=== PATIENT | male | born 1960 | race Caucasian/White ===

== ENCOUNTER 2016-09-26 10:30 | Inpatient (IN) | payer OTHER ==
[~2016-09-26 10:30] MED LIST: ALPR0.25 PO; COMMODE PAIL WI1 MIS; DIPH25CA PO; FURO40TA PO; HOSP BED1; HUMALOG SQ; IPRASOL INH; LACT10SO PO; LIFT HOYER; METO10TA PO; NEPHRO PO; NEXI20CA PO; NICO14DI T-DERMAL; NORV2.5T PO; NOVONP2; ONDA4TAB7 SL; PANC4200 PO; QUIN5TAB6 PO; SENN1TAB17 PO; SUCR1TAB PO; TOPR25TA PO; VANC250C2 PO
[2016-09-26] MEDS ORDERED: PANT20 PO (11:08)
[2016-09-26] MEDS ORDERED: EPOG1000 IV (11:08)
[2016-09-26] MEDS ORDERED: HEPAR10KP IVF (11:08)
[2016-09-26] MEDS ORDERED: DIFL100T PO ×2 (11:08)
[2016-09-26] MEDS ORDERED: HEPAR10KP (11:08)
[2016-09-26] MEDS ORDERED: ESCI10TA PO (11:08)
[2016-09-26] MEDS ORDERED: ALBU12.5P IV (11:08)
[2016-09-26] MEDS ORDERED: BACI500O2 TOP (11:08)
[2016-09-26] MEDS ORDERED: CREON6 PO (11:08)
[2016-09-26] MEDS ORDERED: NEPHRO PO (11:08)
[2016-09-26] MEDS ORDERED: NICO7DIS2 TD (11:08)
[2016-09-26] MEDS ORDERED: GELFOAM TOP (11:08)
[2016-09-26] MEDS ORDERED: METO10TA PO (11:08)
[2016-09-26] MEDS ORDERED: LACT PO (11:08)
[2016-09-26] MEDS ORDERED: DESI40OI2 TOPICAL (11:08)
[2016-09-26] MEDS ORDERED: ONDA4TAB7 SL (11:08)
[2016-09-26] MEDS ORDERED: MIDO5TAB PO (11:08)
[2016-09-26] MEDS ORDERED: GENT20P IV (11:08)
[2016-09-26 13:00] VITALS: BP 137/76; PULSE 69; RESP 18; TEMP 95.5; O2SAT 96
[2016-09-26] MEDS ORDERED: ONDANSETRON ODT 4 MG TAB SL PRN (13:15)
[2016-09-26] MEDS ORDERED: ZINC OXIDE 40% OINT 60 GM TUBE TOPICAL PRN (13:15)
[2016-09-26] MEDS ORDERED: RESP: ALBUTEROL 2.5 MG/IPRATROPIUM 0.5 MG NEB (PRN) NEB (13:15)
[2016-09-26] MEDS ORDERED: ALPRAZolam 0.25 MG TAB PO PRN (13:15)
--- NOTE | 2016-09-26 13:23 | HHI.HP ---
HPI Service [facility] Primary Care Physician Unknown Admission Diagnosis Diagnoses: Chief Complaint: Pneumothorax Travel History International Travel<30 Days: No Contact w/Intl Traveler <30 Da: No Traveled to Known Affected Are: No History of Present Illness Mr. Emanuel Alvarado is a 56-year-old male, with past medical history of diabetes mellitus, tobacco and alcohol abuse. He had an episode of syncope in late November 2015 evaluated at [facility] and found to have necrotizing pancreatitis with liver failure that was secondary to alcohol- induced cirrhosis. That hospitalization was complicated by acute tubular necrosis and patient has been on hemodialysis since then. He also had metabolic encephalopathy, acute respiratory failure for which required tracheostomy and ventilator support with decannulation prior to return to [facility]. He was evaluated for possible liver transplant in [place] but was found to be a poor candidate and was return to [facility] on 06/27/2016. Mr. Alvarado has had ongoing liver failure with ascites, metabolic encephalopathy and multiple procedures including multiple paracentesis for ascites, thoracentesis, IVC filter placement for DVT/PE and recent placement of an AV fistula of right arm for ESRD and ongoing hemodialysis. He was then admitted to [facility] for comprehensive therapy. While at [place], he continued to develop pleural effusion, patient went for thoracenteses 09/23/16. 4 L of fluid was removed, it was transudative. He then subsequently had a pneumothorax after the procedure. Respiratory status has been stable, patient has not been complaining of any shortness of breath however chest x-ray is being done every day with worsening pneumothorax hence patient was transferred to the hospital. Today, patient still denies any shortness of breath but he has also denied shortness of breath despite massive pleural effusion. He also denies any pleuritic chest pain. No fever or chills. Patient has been sleepy and not the best historian. Review of Systems ROS Limitations: Poor Historian Past Family Social History Past Medical History Alcohol Induced liver cirrhosis End-stage renal disease on hemodialysis Monday C. difficile Diabetes Pulmonary embolism DVT Past Surgical History Tracheostomy PEG tube AV fistula graft Multiple paracentesis Thoracentesis Lung resection Reported Medications Desitin (Zinc Oxide (Topical)) 40 % Pst 1 Applic TOPICAL UNSCH PRN Nicotine Patch (Nicotine) 7 Mg/24 Hr Patch 1 Patch TD DAILY Midodrine 5 Mg Tab 10 Mg PO WITH DIALYSIS Heparin Inj (Heparin Sodium (Porcine)) 10,000 Units/10 Ml Inj 0 Units .XX UNSCH PRN Heparin Inj (Heparin Sodium (Porcine)) 10,000 Units/10 Ml Inj 8,000 Units IVF UNSCH PRN Gentamicin Inj (Gentamicin Sulfate) 10 Mg/Ml Inj 20 Mg IV UNSCH PRN Gelfoam Sponge (Gelatin) 12-7 Mm Pad 1 Foam TOP UNSCH PRN Diflucan (Fluconazole) 100 Mg Tab 50 Mg PO SUMOWEFR Diflucan (Fluconazole) 100 Mg Tab 100 Mg PO TUTHSA Flexbumin Inj (Albumin Human) 0.25 Gm/Ml Soln 25 Gm IV UNSCH PRN Bacitracin Topical 500 Unit/Gm Oint 1 Applic TOP Q12HR Epogen Inj (Epoetin Maldonado) 10,000 Unit/Ml Inj 10,000 Units IV UNSCH PRN Escitalopram (Escitalopram Oxalate) 10 Mg Tab 10 Mg PO DAILY Acidophilus/l-Sporogenes (Lactobacillus Acidophilus) 1 Tab Tab 1 Tab PO TID Metoclopramide (Metoclopramide HCl) 10 Mg Tab 5 Mg PO TIDAC Nephro-Bull Rx (Vitamin B Cmplx/Vit C/Folic AC) 1 Tab 1 Cap PO DAILY Protonix (Pantoprazole Sodium) 20 Mg Tab 20 Mg PO DAILY Creon (Amylase/Lipase/Protease) 6,000-19,000-30,000 Units Cap 2 Cap PO TID Ondansetron Odt 4 Mg Tab 4 Mg SL Q6HR PRN Lift - Evelia Device 1 Ea .ROUTE DIRECTED Hospital Bed - Electric 1 Ea Ea 1 Ea .ROUTE DIRECTED Commode With Arms (Device) 1 Mis Mis 1 Ea .ROUTE DIRECTED Reported Duoneb (Ipratropium-Albuterol Neb) 0.5-2.5 Mg/3 Ml Neb 1 Nebule INH QID PRN Diphenhydramine (Diphenhydramine HCl) 25 Mg Cap 25 Mg PO HS PRN Alprazolam 0.25 Mg Tab 0.25 Mg PO TID PRN Vancomycin (Vancomycin HCl) 250 Mg Cap 250 Mg PO QID Sucralfate 1 Gm Tab 1 Gm PO TID on empty stomach Senokot S (Sennosides-Docusate Sodium) 8.6-50 Mg Tab 2 Tab PO HS Pancreaze (Pancrelipase) 4,200-10,000-17,500 Units Cap 2 Cap PO TIDAC Nicotine Patch (Nicotine) 14 Mg/24 Hr Patch 14 Mg T-DERMAL DAILY Lactulose Liq (Lactulose) 10 Gm/15 Ml Soln 30 Ml PO BIDAC Furosemide 40 Mg Tab 40 Mg PO BID Humalog Inj (Insulin Human Lispro) 1,000 Unit/10 Ml Vial 1-9 Units SQ ACHS Max dose at bedtime:( )units; sugars< 70,(0)units; sugars 150-199,(1)unit; sugars 200-249,(3)units; sugars 250-299,(5)units; sugars 300-349,(7)units; sugars more than 349,(9)units. Novolin N Inj (Insulin Human NPH) 100 Unit/Ml Inj Norvasc (Amlodipine Besylate) 2.5 Mg Tab 2.5 Mg PO DAILY Toprol XL (Metoprolol Succinate) 25 Mg Tab 25 Mg PO DAILY Quinapril (Quinapril HCl) 5 Mg Tab 5 Mg PO BID Allergies: Coded Allergies: No Known Allergies (Verified , 08/31/16) Family History Father's medical history unknown. Mother history of dementia, old age at 82. Siblings are healthy. No children Social History Lives with his . Former smoker, quit November 2015, 35 years 1 pack per day Alcohol use daily 2-3 beers and vodka 10 years Denies illicit drug use Physical Exam Physical Exam GENERAL: This is a 56 year old chronically ill appearing male patient, in no apparent distress. Sleeping, calm. SKIN: Sacral pressure wound, erythema consistent with pressure areas bilateral foot. HEAD: Normocephalic, no scalp tenderness. EYES: Extraocular motions intact. scleral icterus noted. No injection or drainage. ENT: Nose without bleeding. Airway patent. Previous tracheostomy site, stoma partially open, no drainage. No jaundice, pale conjunctiva. NECK: Trachea midline. No JVD or lymphadenopathy. CARDIOVASCULAR: Regular rate and rhythm without murmurs, gallops, or rubs. Left subclavian Vas-Cath. RESPIRATORY: Decreased breath sounds bilaterally, worse on the left, no wheezing or crackles. GASTROINTESTINAL: Good bowel sounds, non-tender, distended firm, rounded. MUSCULOSKELETAL: Extremities without clubbing, cyanosis, +1 BLE edema. Right upper arm AV fistula positive thrill and bruit NEUROLOGICAL: Sleepy, easily arousable. No focal neuro deficit. Moves all extremities weakly, BLE weaker. Normal speech Assessment and Plan Problem List: (1) UTI (urinary tract infection) ICD Code: N39.0 Status: Acute (2) ESRD (end stage renal disease) on dialysis ICD Code: N18.6 Status: Chronic (3) Hx of acute pancreatitis ICD Code: Z87.19 Status: Acute (4) Ascites due to alcoholic cirrhosis ICD Code: K70.31 Status: Acute (5) Pneumothorax ICD Code: J93.9 Status: Acute Assessment and Plan Mr. Emanuel Alvarado is a 56-year-old male, with past medical history of diabetes mellitus, tobacco and alcohol abuse. He had an episode of syncope in late November 2015 evaluated at [facility] and found to have necrotizing pancreatitis with liver failure that was secondary to alcohol- induced cirrhosis. Subsequent hospital course included acute tubular necrosis patient is now hemodialysis dependent. He also had tracheostomy placed after a long ventilator support requirement. He has ongoing liver failure with ascites , metabolic encephalopathy and multiple procedures including multiple paracentesis for ascites, thoracentesis, IVC filter placement for DVT/PE and recent placement of an AV fistula of right arm for ESRD and ongoing hemodialysis. He was transferred from [facility] to the hospital for pneumothorax after thoracentesis for pleural effusion. Bilateral pleural effusions, left pneumothorax - status post 2.4 L of thoracenteses 09/23/16, chest x-ray today personally reviewed, shows patchy bilateral consolidation and a large pneumothorax on the left, worse than yesterday. No leukocytosis, previous fluid analysis was transudative. No antibiotics. Will send for CT-guided chest tube insertion, consult pulmonary for chest tube management. UTI- UA reviewed positive leukocyte esterase, urine culture grew albicans, continue Diflucan renally dosed until 10/08/16. IDDM - previously managed at home with Lantus insulin and prandial insulin SS. Sliding scale insulin for now. No long-acting insulin. ESRD - on hemodialysis T--S, consult nephrology. C Diff - positive test from [facility] 08/21/16 and was started on Vancomycin PO QID and completed 09/03/16. Continue Lactinex. History of PE/DVT - IVC filter in place. Unable to anticoagulate due to liver cirrhosis. Orthostatic hypotension- TEDs. Patient previously on Norvasc, metoprolol and lisinopril/quinapril but were stopped. Sacral wound-continue wound care. Chronic Pancreatitis - on Creon HTN -patient actually quite hypotensive, all antihypertensives were previously stopped. Liver cirrhosis, ascites, history of hepatic encephalopathy - continue with dialysis, recheck ammonia. US 09/13/2016 showed loculated fluid collections unable to perform paracentesis. Restart lactulose. History of respiratory failure, tracheostomy - monitor respiratory status, Neb treatments when necessary DVT prop - IVC filter Full code Physician Certification 2 Midnight Certification Type: Admission for Inpatient Services Order for Inpatient Services The services are ordered in accordance with Medicare regulations or non- Medicare payer requirements, as applicable. In the case of services not specified as inpatient-only, they are appropriately provided as inpatient services in accordance with the 2-midnight benchmark. Estimated LOS (days): 4 days is the estimated time the patient will need to remain in the hospital, assuming treatment plan goals are met and no additional complications. Post-Hospital Plan: [facility] Stevenson Robles MD Sep 26, 2016 13:23
[2016-09-26] MEDS ORDERED: GLUCAGON 1 MG/ML VIAL OTHER PRN (13:45)
[2016-09-26] MEDS ORDERED: DEXTROSE 50% IN WATER 50 ML VIAL(D50) IV PRN (13:45)
[2016-09-26 16:00] VITALS: BP 140/71; PULSE 74; RESP 18; TEMP 96; O2SAT 94
[2016-09-26] MEDS: INSULIN ASPART SUPPLEMENTAL SCALE SQ SCH ×2 (16:00→20:30)
[2016-09-26] MEDS: LACTULOSE SYRUP 20 GM/30 ML CUP PO SCH ×2 (16:00→17:19)
[2016-09-26] MEDS ORDERED: PANCRELIPASE PO SCH (17:00)
[2016-09-26] MEDS: SUCRALFATE 1 GM TAB PO SCH (17:19)
[2016-09-26] MEDS: LACTOBACILLUS ACIDOPHILUS TAB PO SCH (17:19)
[2016-09-26] MEDS: METOCLOPRAMIDE HCL 10 MG TAB PO SCH (17:19)
[2016-09-26] MEDS: LIPASE/PROTEASE/AMYLASE (6,000/19,000/30,000) CAP PO SCH (17:20)
[2016-09-26] MEDS: FLUCONAZOLE 100 MG TAB PO SCH (17:20)
[2016-09-26 17:21] VITALS: O2SAT 94
[2016-09-26 20:00] VITALS: BP 149/78; PULSE 76; RESP 16; TEMP 96.9; O2SAT 93
[2016-09-26] MEDS: DOCUSATE SODIUM 50 MG/SENNA 8.6 MG TAB PO SCH (20:29)
[2016-09-26] MEDS: BACITRACIN TOP OINT 15 GM TUBE TOP SCH (20:30)
[2016-09-26] MEDS ORDERED: LISINOPRIL 5 MG TAB PO SCH (21:00)
[2016-09-26] MEDS ORDERED: FUROSEMIDE 40 MG TAB PO SCH (21:00)
[2016-09-26] MEDS ORDERED: diphenhydrAMINE HCL 25 MG CAP PO ONE (22:30)
--- NOTE | 2016-09-26 23:52 | MB ---
cc: BENY MONTEJO DATE OF CONSULTATION: 09/26/2016 REASON FOR CONSULTATION: Pneumothorax and pleural effusions HISTORY OF PRESENT ILLNESS: This is a 56 year-old white male with a past history of diabetes, ethanolism, also has a history of end-stage renal disease and pancreatitis. The patient has ascites with alcoholic cirrhosis and was admitted with necrotizing pancreatitis and liver failure from alcoholic cirrhosis. He has had encephalopathy and was unable to relate any of the details of his history. Following admission he was in respiratory failure requiring tracheostomy and on ventilatory support. He was gradually weaned off the ventilator. [facility] He has been evaluated for possible liver transplant but found to be a poor candidate. During his hospital stay he has undergone multiple paracentesis for ascites as well as thoracentesis, and IVC filter placement, and A-V fistula placement for dialysis due to end-stage renal disease. He was transferred to [facility]. The patient had to undergo thoracentesis on the left side which was done on 09/23/16 with removal of four liters of fluid which was transudative. Subsequently he had a pneumothorax which has gradually increased in size and now requires a chest tube placement. The patient, however, is on 2 liters of oxygen and maintaining his saturation of 96%. He has been drowsy and does not provide any meaningful details of his history of complaints. PAST HISTORY Includes: 1. History of end-stage renal disease on dialysis. 2. History of pulmonary emboli. 3. DVT. 4. Diabetes. 5. C. difficile colitis. PAST SURGICAL HISTORY: 1. Tracheostomy 2. PEG tube placement 3. A-V fistula 4. Remote history of lung surgery. MEDICATIONS: 1. DuoNeb t.i.d. 2. Xanax 0.25 milligrams t.i.d. 3. Pancrelipase two capsules t.i.d. 4. Lactulose 30 cc b.i.d. 5. Lasix 40 milligrams b.i.d. 6. Novolin insulin sliding scale. 7. Amlodipine 2.5 milligrams daily. 8. Quinapril 5 milligrams b.i.d. ALLERGIES: None listed. FAMILY HISTORY: Noncontributory. PHYSICAL EXAMINATION: This is a emaciated looking middle-aged white male who is pale and mildly dyspneic. VITAL SIGNS: Blood pressure 96/50, heart rate was 100, respirations 24, temperature 98.2. HEENT: Head normocephalic. Pupils reactive, clear icteric. Tongue was coated. Ears, no inflammation. Neck: Supple with mild venous distension while laying flat. Trachea midline. Chest: Equal movements with crackles at the lung bases with diffuse wheezes throughout both lung carbajal. Heart: The heart sounds are irregular, S1-S2. No murmur. Abdomen: Reveals the liver to be 3 fingerbreadths below the costal margin. Bowel sounds are active. Extremities: Edema 2+ of the lower extremities. Decreased pulses. Reflexes are 1+. The patient does move his extremities sluggishly. No lesions observed. IMPRESSION 1. Cirrhosis with ascites and pleural effusion. 2. Large left pneumothorax status post thoracentesis. 3. History of encephalopathy. PLAN: The patient has been advised that a chest tube will be placed by interventional radiology and a repeat chest x-ray will be obtained. We will continue diuretic therapy, nebulized DuoNeb solution four times a day, CBC and electrolytes. A PFT will be done at the bedside and bronchodilators will be added which include Albuterol and atrovent q.i.d. and p.r.n. He will go for dialysis as planned. If there is recurrence of pleural fluid on the right side thoracentesis will be planned. Thank you for the consultation. MD JAYDA Dunbar/EBONY /11:01 PM /11:37 PM
[2016-09-27] VITALS (10 sets, daily range): BP systolic 104–161; BP diastolic 64–85; PULSE 61–74; RESP 16–18; TEMP 95.5–97; O2SAT 91–97
--- NOTE | 2016-09-27 05:54 | RADRPT ---
EXAM DATE/TIME: 09/27/2016 04:53 [place] COMPARISON: CHEST SINGLE AP, September 25, 2016, 16:00. INDICATIONS : Evaluate for pneumothorax. MEDICAL HISTORY : Hypertension. Renal disease, end stage. Necrotizing pancreatitis. SURGICAL HISTORY : AV fistula, right arm. Tracheostomy. Paracentesis. Hemodialysis. PEG tube ENCOUNTER: Subsequent ACUITY: 1 week PAIN SCORE: Non-responsive. LOCATION: Bilateral chest FINDINGS: 2 portable frontal views of the chest show a hydropneumothorax on the left. This is unchanged in the prior study. Loculated effusion is seen within the major fissure on the right. Heart is normal in siz e. Dialysis catheter overlies the left chest. CONCLUSION: Unchanged loculated hydropneumothorax on the left. Raul Deras Jr., MD on September 27, 2016 at 5:52 Board Certified Radiologist. This report was verified electronically.
[2016-09-27] MEDS: LACTULOSE SYRUP 20 GM/30 ML CUP PO SCH ×2 (06:01→16:00)
[2016-09-27] MEDS: INSULIN ASPART SUPPLEMENTAL SCALE SQ SCH ×4 (06:11→21:35)
[2016-09-27 06:25] LABS: HEMATOCRIT 29.9 % (39.0-51.0); MEAN CELL VOLUME 69.8 FL (80.0-100.0); MEAN CORPUSCULAR HEMOGLOBIN 21.3 PG (27.0-34.0); MEAN CORPUSCULAR HGB CONC 30.4 % (32.0-36.0); PLATELET COUNT 304 TH/MM3 (150-450); RED BLOOD COUNT 4.29 MIL/MM3 (4.50-5.90); RED CELL DISTRIBUTION WIDTH 18.6 % (11.6-17.2); WHITE BLOOD COUNT 10.7 TH/MM3 (4.0-11.0)
[2016-09-27 06:35] LABS: BICARBONATE 32.5 MEQ/L (21.0-32.0); POTASSIUM 3.6 MEQ/L (3.5-5.1)
[2016-09-27 06:41] LABS: HEMO FLAGS AUTO DIFF
[2016-09-27] MEDS: METOCLOPRAMIDE HCL 10 MG TAB PO SCH ×3 (08:00→17:00)
[2016-09-27 08:07] LABS: ATYPICAL LYMPHOCYTES 11 % (0-0); BANDS 3 % (0-6); BASOPHILS 2 % (0-2); CORRECTED NUCLEATED RBC 2 /100 WBC (0-0); EOSINOPHILS 12 % (0-4); MYELOCYTES 1 % (0-0); NEUTROPHIL # MANUAL DIFF 5.1 TH/MM3 (1.8-7.7); POLYS (SEG NEUTROPHILS) 44 % (16-70); SPHEROCYTES OCC (NORMAL); WBC DIFF SAMPLE 100
[2016-09-27 08:08] LABS: ACANTHOCYTES OCC (NORMAL); PLATELET ESTIMATE SMEAR NORMAL (NORMAL); PLATELET MORPHOLOGY ENLARGED (NORMAL); SCAN/DIFF FINAL DIFF MANUAL; TARGET CELLS 3+ (NORMAL)
--- NOTE | 2016-09-27 08:41 | HHI.PR ---
Subjective Remarks Follow-up for shortness of breath Patient a poor historian, not cooperative. Denies worsening shortness of breath , allegedly shortness of breath is the same as yesterday. No chest pain. Sleepy but arousable. Complaining of pain both feet and wants his oxycodone back. Objective Vitals Vital Signs Date Time Temp Pulse Resp B/P Pulse Ox O2 Delivery O2 Flow Rate FiO2 09/27/16 07:59 95.5 66 18 149/79 91 09/27/16 04:00 96.5 67 16 161/85 93 09/27/16 00:00 97.0 74 16 154/81 93 09/26/16 20:00 96.9 76 16 149/78 93 09/26/16 17:21 94 Nasal Cannula 2.00 09/26/16 16:00 96.0 74 18 140/71 94 09/26/16 13:00 95.5 69 18 137/76 96 I/O 09/26/16 09/26/16 09/26/16 09/27/16 09/27/16 09/27/16 07:00 15:00 23:00 07:00 15:00 23:00 Intake Total 120 ml 100 ml Balance 120 ml 100 ml Intake Oral 120 ml 100 ml # Voids 0 0 # Bowel Movements 0 0 Result Diagram: 09/27/1607 09/27/16 0607 Objective Remarks GENERAL: Not in distress, appears weak, sleeping but arousable. SKIN: Sacral pressure wound, erythema consistent with pressure areas bilateral foot. HEAD: Normocephalic, no scalp tenderness. EYES: Extraocular motions intact. No jaundice, pale conjunctivae nonicteric. ENT: Nose without bleeding. Airway patent. Previous tracheostomy site noted. NECK: Trachea midline. No JVD or lymphadenopathy. CARDIOVASCULAR: Regular rate and rhythm without murmurs, gallops, or rubs. Left subclavian Vas-Cath. RESPIRATORY: Decreased breath sounds bilaterally, worse on the left, no wheezing or crackles. Poor effort. GASTROINTESTINAL: Good bowel sounds, non-tender, distended firm, rounded. MUSCULOSKELETAL: Extremities without clubbing, cyanosis, trace BLE edema. Right upper arm AV fistula positive thrill and bruit NEUROLOGICAL: Sleepy, easily arousable. No focal neuro deficit. Moves all extremities weakly. A/P Problem List: (1) UTI (urinary tract infection) ICD Code: N39.0 Status: Acute (2) ESRD (end stage renal disease) on dialysis ICD Code: N18.6 Status: Chronic (3) Hx of acute pancreatitis ICD Code: Z87.19 Status: Acute (4) Ascites due to alcoholic cirrhosis ICD Code: K70.31 Status: Acute (5) Pneumothorax ICD Code: J93.9 Status: Acute Assessment and Plan Mr. Emanuel Alvarado is a 56-year-old male, with past medical history of diabetes mellitus, tobacco and alcohol abuse. He had an episode of syncope in late November 2015 evaluated at [facility] and found to have necrotizing pancreatitis with liver failure that was secondary to alcohol- induced cirrhosis. Subsequent hospital course included acute tubular necrosis patient is now hemodialysis dependent. He also had tracheostomy placed after a long ventilator support requirement. He has ongoing liver failure with ascites , metabolic encephalopathy and multiple procedures including multiple paracentesis for ascites, thoracentesis, IVC filter placement for DVT/PE and recent placement of an AV fistula of right arm for ESRD and ongoing hemodialysis. He was transferred from [facility] to the hospital for pneumothorax after thoracentesis for pleural effusion. Bilateral pleural effusions, left pneumothorax - status post 2.4 L of thoracenteses 09/23/16, chest x-ray personally reviewed, shows patchy bilateral consolidation and a large pneumothorax on the left, worsening. No leukocytosis, previous fluid analysis was transudative. No antibiotics. Will send for CT- guided chest tube insertion, pulmonary consulted and following. UTI- UA reviewed positive leukocyte esterase, urine culture grew albicans, continue Diflucan renally dosed until 10/08/16. IDDM - previously managed at home with Lantus insulin and prandial insulin SS. However had episodes of hypoglycemia, Sliding scale insulin for now. No long- acting insulin. ESRD - on hemodialysis T-TH-S, consult nephrology. Awaiting input. C Diff - positive test from [facility] 08/21/16 and was started on Vancomycin PO QID and completed 09/03/16. Continue Lactinex. History of PE/DVT - IVC filter in place. Unable to anticoagulate due to liver cirrhosis. Orthostatic hypotension- TEDs. Patient previously on Norvasc, metoprolol and lisinopril/quinapril but were stopped. Sacral wound-continue wound care. Chronic Pancreatitis - on Creon HTN -patient actually quite hypotensive, all antihypertensives were previously stopped. Liver cirrhosis, ascites, history of hepatic encephalopathy - continue with dialysis, ammonia within normal limits. US 09/13/2016 showed loculated fluid collections unable to perform paracentesis. Continue lactulose. History of respiratory failure, tracheostomy - monitor respiratory status, Neb treatments when necessary Chronic pain-narcotics on hold because of lethargy. DVT prop - IVC filter, pharmacological prophylaxis contraindicated because of liver failure Full code Discussed with Dalila 09/27/16. Stevenson Robles MD Sep 27, 2016 08:41
[2016-09-27] MEDS ORDERED: NALOXONE HCL 0.4 MG/ML AMP IV PRN (08:45)
[2016-09-27] MEDS ORDERED: traMADol HCL 50 MG TAB PO PRN (09:00)
[2016-09-27] MEDS: VITAMIN B CMPLX/VITC/FOLIC AC CAP PO SCH (09:00)
[2016-09-27] MEDS: LIPASE/PROTEASE/AMYLASE (6,000/19,000/30,000) CAP PO SCH ×3 (09:00→18:00)
[2016-09-27] MEDS: PANTOPRAZOLE SOD 20 MG DELAYED RELEASE TAB PO SCH (09:00)
[2016-09-27] MEDS: SUCRALFATE 1 GM TAB PO SCH ×3 (09:00→18:00)
[2016-09-27] MEDS: ESCITALOPRAM OXALATE 10 MG TAB PO SCH (09:00)
[2016-09-27] MEDS ORDERED: IBUPROFEN 400 MG TAB PO PRN (09:00)
[2016-09-27] MEDS: LACTOBACILLUS ACIDOPHILUS TAB PO SCH ×3 (09:00→18:00)
[2016-09-27] MEDS ORDERED: amLODIPine BESYLATE 5 MG TAB PO SCH (09:00)
[2016-09-27] MEDS ORDERED: METOPROLOL SUCCINATE 25 MG EXTENDED RELEASE TAB PO SCH (09:00)
[2016-09-27] MEDS: BACITRACIN TOP OINT 15 GM TUBE TOP SCH ×2 (09:00→21:35)
[2016-09-27] MEDS ORDERED: SODIUM CHLOR 0.9% 1000 ML INJ 1,000 ML IV PRN ×2 (09:54)
[2016-09-27] MEDS ORDERED: HEPARIN SODIUM - IV 10,000 UNITS/10 ML VIAL IVF PRN (10:00)
[2016-09-27] MEDS ORDERED: NITROGLYCERIN 0.4 MG SL 25 TABS/BTL SL PRN (10:00)
[2016-09-27] MEDS ORDERED: cloNIDine HCL 0.1 MG TAB PO PRN (10:00)
[2016-09-27] MEDS ORDERED: GELATIN 12 MM/7 MM FOAM TOP PRN (10:00)
[2016-09-27] MEDS ORDERED: ACETAMINOPHEN 325 MG TAB PO PRN (10:00)
[2016-09-27] MEDS ORDERED: ONDANSETRON HCL 4 MG/2 ML VIAL IV PRN (10:00)
[2016-09-27] MEDS ORDERED: MANNITOL 12.5 GM/50 ML VIAL IV PRN (10:00)
[2016-09-27] MEDS ORDERED: diphenhydrAMINE HCL 25 MG CAP PO PRN (10:00)
--- NOTE | 2016-09-27 10:36 | MB ---
cc: ANGELA LUO MD DATE OF CONSULTATION: 09/27/2016 REASON FOR CONSULTATION End-stage renal disease on hemodialysis for management. HISTORY OF PRESENT ILLNESS This is a 56-year-old male with a past medical history of diabetes mellitus, history of chronic alcoholism and cirrhosis of the liver, history of recurrent ascites, end-stage renal disease on hemodialysis Monday, and Monday, history of C. difficile colitis, diabetes mellitus, pulmonary embolism, deep vein thrombosis, who was transferred from [facility] because of a pneumothorax. I was called to see the patient for the management of dialysis. The patient has been on hemodialysis Monday, and Monday. He has been in [place] for the last 2 weeks and I have been following him since then. He had his last treatment on Monday and then the patient went for a thoracentesis which was done on September 23. He had many chest x-rays done afterwards and the one which was done 2 days ago shows moderate left-sided pneumothorax and there was some slight increase in the pneumothorax suspected so he was transferred [facility]. The patient is currently on hemodialysis. He is quite lethargic but he opens his eyes and answers simple questions. He denies any shortness of breath, currently he is on room air. There is no history of nausea, vomiting or diarrhea. He has been getting physical therapy in [facility]. His appetite is not very good and he has been eating a limited amount. His blood pressure is better. He has a history of hypotension and now his blood pressure is stable. The patient was seen by pulmonology and he will have a chest tube placed by interventional radiology. PAST MEDICAL HISTORY 1. Diabetes mellitus. 2. Chronic liver disease. 3. History of alcoholism. 4. History of deep vein thrombosis and pulmonary embolism. 5. History of C. difficile colitis. PAST SURGICAL HISTORY 1. Tracheostomy. 2. PEG tube. 3. AV fistula surgery in the right arm. 4. Multiple paracentesis, thoracentesis. 5. Resection of the lung. REVIEW OF SYSTEMS The patient has generalized weakness, feeling tired. There is no history of recent fevers. Denies any shortness of breath. He is currently on room air. No nausea or vomiting. Has mild abdominal distension. No abdominal pain. SOCIAL HISTORY The patient is . He has a past history of heavy alcoholism. He has a history of smoking, stopped in November 2015 when he got sick. There is no history of any other drug abuse. ALLERGIES No known drug allergies. MEDICATIONS Currently he is on: 1. Lactulose 30 mL b.i.d. 2. Lexapro 10 mg once a day. 3. Protonix 20 mg daily. 4. Nephrocaps, one capsule daily. 5. Melissa-Colace, two tablets q.h.s. 6. Fluconazole 50 mg, four times a week. 7. Lactinex, one tablet t.i.d. 8. Creon, two capsules t.i.d. 9. Carafate one gram t.i.d. 10.Reglan 5 mg t.i.d. 11.Fluconazole 100 mg Monday, and Monday. PHYSICAL EXAMINATION GENERAL: The patient is sleepy but arousable, not in acute distress. VITAL SIGNS: His last blood pressure is 140/79. Temperature is 95.5. Oxygen saturation is 91-93%. HEENT: Pupils equally reacting to light. Non-icteric sclera. Conjunctiva pale. NECK: Supple. JVD is not elevated. LUNGS: The patient has bilateral decreased air entry with scattered wheezing. HEART: S1, S2, regular rhythm. ABDOMEN: Distended, soft, lax. There is ascites. Nontender. Bowel sounds positive. EXTREMITIES: There is no pedal edema. INVESTIGATIONS WBC count is 10.7, hemoglobin 9.1, platelet count 304. Sodium 136, potassium 3.6, chloride 97, bicarb 32.2, BUN 20, creatinine 3.5, glucose 61, calcium 8.9. AST and ALT normal, total bilirubin 0.6, alkaline phosphatase 234, albumin 2.3, INR is 1.1. IMAGING STUDIES The last chest x-ray was done this morning and it shows that there is unchanged loculated hydropneumothorax on the left side. ASSESSMENT AND PLAN 1. Pneumothorax post thoracentesis. 2. End-stage renal disease on hemodialysis. 3. Anemia. 4. Cirrhosis of the liver with ascites. 5. History of alcoholism. 6. History of C. difficile colitis. 7. Muscle wasting. The patient has been getting physical therapy and that was the main reason he was at [facility], and now he has this pneumothorax. He was seen by pulmonology. He will get a chest tube today. Currently he is on dialysis, hemodynamically stable. His blood pressure is better than before. We are removing two liters with dialysis and he will be getting Epogen with dialysis. Thank you for the consultation. I will follow the patient while he is in the hospital. Angela Luo MD AQJ/DESTINY /9:51 AM /10:16 AM
[2016-09-27] MEDS: HEPARIN SODIUM - IV 10,000 UNITS/10 ML VIAL PRN (10:37)
[2016-09-27] MEDS: EPOETIN ALFA 10,000 UNITS/ML VIAL IV PRN (10:37)
[2016-09-27] MEDS: SODIUM CHLOR 0.9% 1000 ML INJ 1,000 ML IV PRN (10:37)
[2016-09-27] MEDS: GENTAMICIN SULFATE (DIALYSIS USE ONLY) 20 MG/2 ML VIAL IV PRN (10:38)
[2016-09-27] MEDS ORDERED: fentaNYL CITRATE 250 MCG/5 ML AMP ONE (12:17)
[2016-09-27] MEDS ORDERED: MIDAZOLAM HCL 5 MG/5 ML VIAL ONE (12:17)
[2016-09-27] MEDS ORDERED: LIDOCAINE 1%/EPINEPHrine 1:100,000 SOLN 20 ML VIAL ONE (14:40)
[2016-09-27] MEDS ORDERED: MIDAZOLAM HCL 2 MG/2 ML VIAL ONE (14:43)
[2016-09-27] MEDS: FLUCONAZOLE 100 MG TAB PO SCH (15:00)
--- NOTE | 2016-09-27 16:44 | RADRPT ---
EXAM DATE/TIME: 09/27/2016 15:20 INDICATIONS : Loculated hydropneumothorax SEDATION TIME: 30 minutes MEDICATION(S): 1.) 1 mg midazolam (Versed) IV 2.) 100 mcg fentanyl (Sublimaze) IV DEVICE(S): 1.) Adelita 12Fr FLUID: Total volume [id number] cc of hamilton fluid was remoted. Fluid was discarded. MEDICAL HISTORY : Renal disease, end stage. Cirrhosis. Diabetes SURGICAL HISTORY : None. ENCOUNTER: Initial ACUITY: 1 day PAIN SCORE: 0/10 LOCATION: Left chest PROCEDURE: 1.) Conscious sedation with continuous EKG and oximetry monitoring. PROCEDURE : 1. CT guided chest tube placement. 2. Conscious sedation with continuous EKG and oximetry monitoring. The risks, benefits and alternatives to the procedure were explained and verbal and written consent w as obtained. The site was prepped in sterile fashion. Full sterile technique was used, including ca p, mask, sterile gloves and gown and a large sterile sheet. Hand hygiene and 2% chlorhexidine and/or betadine/alcohol prep was utilized per protocol for cutaneous antisepsis. The skin and subcutaneous tissues were infiltrated with local anesthetic solution. With CT guidance the chest was punctured and the prescribed catheter was placed in the lung apex. Wal l suction was applied. Post procedure images demonstrate satisfactory position of the tube. The cat heter was sutured in place and a Percu-Stay was applied. Conscious sedation was performed with the prescribed dosages and duration as above. The patient felecia ated the procedure well and there were no complications. EKG and oximetry remained stable throughout the procedure. The patient was sent to post anesthesia recovery in stable condition. CONCLUSION: Uncomplicated chest tube placement as above. Pete Lugo MD on September 27, 2016 at 16:41 Board Certified Radiologist. This report was verified electronically.
--- NOTE | 2016-09-27 16:45 | RADRPT ---
EXAM DATE/TIME: 09/27/2016 16:23 [facility] COMPARISON: CHEST EXPIRATION ONLY, September 23, 2016, 16:18. INDICATIONS : Post left chest tube placement. MEDICAL HISTORY : Hypertension. Renal disease, end stage. Necrotizing pancreatitis. SURGICAL HISTORY : AV fistula, right arm. Tracheostomy. Paracentesis. Hemodialysis. PEG tube ENCOUNTER: Subsequent ACUITY: 4 - 6 days PAIN SCORE: 0/10 LOCATION: Bilateral chest FINDINGS: Patient status post placement of a left-sided chest tube. The left-sided chest tube is in the lower l eft hemithorax. There is a small residual left pneumothorax with approximately 5 mm of separation of the pleura. The previously noted fluid has been drained. CONCLUSION: Left chest tube in place with a small residual left pneumothorax. Pete Lugo MD on September 27, 2016 at 16:43 Board Certified Radiologist. This report was verified electronically.
--- NOTE | 2016-09-27 16:48 | RADRPT ---
EXAM DATE/TIME: 09/27/2016 15:20 [facility] COMPARISON: No previous studies available for comparison. INDICATIONS : Loculated hydropneumothorax RADIATION DOSE: 16.58 CTDIvol (mGy) MEDICAL HISTORY : Renal disease, end stage. Cirrhosis. Diabetes SURGICAL HISTORY : None. ENCOUNTER: Initial ACUITY: 1 day PAIN SCALE: 0/10 LOCATION: Left chest TECHNIQUE: Volumetric scanning of the chest was performed. Using automated exposure control and adjustment of t he mA and/or kV according to patient size, radiation dose was kept as low as reasonably achievable to obtain optimal diagnostic quality images. FINDINGS: LUNGS: There is a nodular infiltrate in the right apex. There is a patchy parenchymal infiltrate in the post erior right upper lung. There is a patchy parenchymal infiltrate in the right lung base with a very s mall right effusion. There is a large left hydropneumothorax. There is some focal cortical consolidat ion in the left upper lung. PLEURAE: Large left hydropneumothorax. Very small right pleural effusion. MEDIASTINUM: The heart and great vessels demonstrate no acute abnormality. There is no mediastinal or hilar lymph adenopathy. AXILLAE: Within normal limits. No lymphadenopathy. MUSCULOSKELETAL: Within normal limits for patient age. MISCELLANEOUS: The visualized upper abdominal organs demonstrate no acute abnormality. There is some abdominal ascit es present. CONCLUSION: 1. Large left hydropneumothorax. A left-sided chest tube will be placed. 2. Scattered parenchymal infiltrates throughout the right lung with a very small right effusion. Pete Lugo MD on September 27, 2016 at 16:44 Board Certified Radiologist. This report was verified electronically.
--- NOTE | 2016-09-27 19:58 | HHI.PR ---
Subjective Remarks Chest tube is draining. CXR is better. Feels better , and o2 sat 96 on 2 L Objective Vital Signs Date Time Temp Pulse Resp B/P Pulse Ox O2 Delivery O2 Flow Rate FiO2 09/27/16 17:47 61 18 141/78 97 09/27/16 17:25 61 18 141/72 96 09/27/16 16:55 66 18 141/79 97 09/27/16 16:40 68 18 138/82 95 09/27/16 10:11 94 Nasal Cannula 2.00 09/27/16 07:59 95.5 66 18 149/79 91 09/27/16 04:00 96.5 67 16 161/85 93 09/27/16 00:00 97.0 74 16 154/81 93 09/26/16 20:00 96.9 76 16 149/78 93 I/O 09/26/16 09/26/16 09/26/16 09/27/16 09/27/16 09/27/16 06:59 14:59 22:59 06:59 14:59 22:59 Intake Total 120 ml 100 ml Output Total 2000 ml Balance 120 ml 100 ml -2000 ml Intake Oral 120 ml 100 ml Output Hemodialysis 2000 ml # Voids 0 0 # Bowel Movements 0 0 Result Diagram: 09/27/16 0607 09/27/16 0607 Objective Remarks This is a emaciated looking middle-aged white male who is pale and mildly dyspneic. HEENT: Head normocephalic. Pupils reactive, clear icteric. Tongue was coated. Ears, no inflammation. Neck: Supple with mild venous distension while laying flat. Trachea midline. Chest: Equal movements with crackles at the lung bases with diffuse wheezes throughout both lung carbajal.Occ Crackles at bases. Heart: The heart sounds are irregular, S1-S2. No murmur. Abdomen: Reveals the liver to be 3 fingerbreadths below the costal margin. Bowel sounds are active. Extremities: Edema 2+ of the lower extremities. Decreased pulses. Reflexes are 1+. The patient does move his extremities sluggishly. No lesions observed. Assessment and Plan Assessment and Plan IMPRESSION 1. Cirrhosis with ascites and pleural effusion. 2. Large left pneumothorax status post thoracentesis. 3. History of encephalopathy. Plan : 1. Cont chest tube drainage. 2. Chest X ray in am. 3. Duoneb nebs tid prn. 4. IS at bedside qid. 5. O2 2 L. 6. BMP in am Justina Johnston MD Sep 27, 2016 19:58
[2016-09-27] MEDS: DOCUSATE SODIUM 50 MG/SENNA 8.6 MG TAB PO SCH (21:35)
[2016-09-28] VITALS (7 sets, daily range): BP systolic 137–159; BP diastolic 73–85; PULSE 68–74; RESP 16–20; TEMP 95.5–96.4; O2SAT 93–100
[2016-09-28] MEDS: LACTULOSE SYRUP 20 GM/30 ML CUP PO SCH ×2 (04:02→12:51)
[2016-09-28] MEDS: INSULIN ASPART SUPPLEMENTAL SCALE SQ SCH ×4 (06:09→21:09)
[2016-09-28] MEDS: BACITRACIN TOP OINT 15 GM TUBE TOP SCH ×2 (09:00→21:09)
[2016-09-28] MEDS: SUCRALFATE 1 GM TAB PO SCH ×3 (09:01→15:41)
[2016-09-28] MEDS: METOCLOPRAMIDE HCL 10 MG TAB PO SCH ×3 (09:01→15:41)
[2016-09-28] MEDS: LACTOBACILLUS ACIDOPHILUS TAB PO SCH ×3 (09:02→15:41)
[2016-09-28] MEDS: ESCITALOPRAM OXALATE 10 MG TAB PO SCH (09:02)
[2016-09-28] MEDS: LIPASE/PROTEASE/AMYLASE (6,000/19,000/30,000) CAP PO SCH ×3 (09:02→15:41)
[2016-09-28] MEDS: VITAMIN B CMPLX/VITC/FOLIC AC CAP PO SCH (09:02)
[2016-09-28] MEDS: PANTOPRAZOLE SOD 20 MG DELAYED RELEASE TAB PO SCH (09:02)
[2016-09-28] MEDS: SODIUM CHLORIDE 0.9% FLUSH 5 ML FLUSH IVF PRN (09:03)
[2016-09-28] MEDS: FLUCONAZOLE 100 MG TAB PO SCH (13:24)
--- NOTE | 2016-09-28 13:30 | HHI.PR ---
Subjective Remarks Follow-up left pneumothorax. Denies shortness of breath. On chest children age and nasal cannula. Requesting pain medicine. Seen with . Discussed with RN Objective Vitals Vital Signs Date Time Temp Pulse Resp B/P Pulse Ox O2 Delivery O2 Flow Rate FiO2 09/28/16 11:34 95.5 70 20 159/73 98 09/28/16 09:18 70 09/28/16 08:00 95.6 68 16 153/85 100 09/28/16 04:00 96.4 68 17 137/76 95 09/28/16 00:00 96.4 73 16 143/75 98 09/27/16 23:00 95 Nasal Cannula 2.00 09/27/16 20:00 96.6 70 16 104/64 93 09/27/16 17:47 61 18 141/78 97 09/27/16 17:25 61 18 141/72 96 09/27/16 16:55 66 18 141/79 97 09/27/16 16:40 68 18 138/82 95 I/O 09/27/16 09/27/16 09/27/16 09/28/16 09/28/16 09/28/16 07:00 15:00 23:00 07:00 15:00 23:00 Intake Total 100 ml 120 ml 240 ml Output Total 2000 ml 580 ml 230 ml 100 ml Balance 100 ml -2000 ml -460 ml 10 ml -100 ml Intake Oral 100 ml 120 ml 240 ml Chest Tube Drainage Total 580 ml 230 ml 100 ml Hemodialysis 2000 ml # Voids 0 0 0 # Bowel Movements 0 2 1 Result Diagram: 09/27/16 0607 09/27/16 0607 Imaging Last Impressions Chest X-Ray 09/27/16 1602 Signed Impressions: Service Date/Time: Tuesday, September 27, 2016 16:23 - CONCLUSION: Left chest tube in place with a small residual left pneumothorax. Pete Lugo MD Chest Tube Insertion 09/27/16 1452 Signed Impressions: Service Date/Time: Tuesday, September 27, 2016 15:20 - CONCLUSION: Uncomplicated chest tube placement as above. Pete Lugo MD Chest CT 09/27/16 0000 Signed Impressions: Service Date/Time: Tuesday, September 27, 2016 15:20 - CONCLUSION: 1. Large left hydropneumothorax. A left-sided chest tube will be placed. 2. Scattered parenchymal infiltrates throughout the right lung with a very small right effusion. Pete Lugo MD Objective Remarks GENERAL: Well-developed asthenic in no distress SKIN: Warm and dry. HEAD: Atraumatic. Normocephalic. EYES: Pupils equal and round. No scleral icterus. No injection or drainage. ENT: No nasal bleeding or discharge. Mucous membranes pink and moist. NECK: Trachea midline. No JVD. CARDIOVASCULAR: Regular rate and rhythm. RESPIRATORY: No accessory muscle use. Slightly decreased breath sounds right lung GASTROINTESTINAL: Abdomen soft, non-tender, nondistended. MUSCULOSKELETAL: Extremities without clubbing, cyanosis, or edema. No obvious deformities. NEUROLOGICAL: Awake and alert. No obvious cranial nerve deficits. Motor grossly within normal limits. Five out of 5 muscle strength in the arms and legs. Normal speech. PSYCHIATRIC: Appropriate mood and affect; insight and judgment normal. Procedures Left chest tube placement A/P Problem List: (1) UTI (urinary tract infection) ICD Code: N39.0 Status: Acute (2) ESRD (end stage renal disease) on dialysis ICD Code: N18.6 Status: Chronic (3) Hx of acute pancreatitis ICD Code: Z87.19 Status: Acute (4) Ascites due to alcoholic cirrhosis ICD Code: K70.31 Status: Acute (5) Pneumothorax ICD Code: J93.9 Status: Acute Assessment and Plan Mr. Emanuel Alvarado is a 56-year-old male, with past medical history of diabetes mellitus, tobacco and alcohol abuse. He had an episode of syncope in late November 2015 evaluated at [facility] and found to have necrotizing pancreatitis with liver failure that was secondary to alcohol- induced cirrhosis. Subsequent hospital course included acute tubular necrosis patient is now hemodialysis dependent. He also had tracheostomy placed after a long ventilator support requirement. He has ongoing liver failure with ascites , metabolic encephalopathy and multiple procedures including multiple paracentesis for ascites, thoracentesis, IVC filter placement for DVT/PE and recent placement of an AV fistula of right arm for ESRD and ongoing hemodialysis. He was transferred from [facility] to the hospital for pneumothorax after thoracentesis for pleural effusion. Bilateral pleural effusions, left pneumothorax - status post 2.4 L of thoracenteses 09/23/16, chest x-ray personally reviewed, shows patchy bilateral consolidation and a large pneumothorax on the left, worsening. No leukocytosis, previous fluid analysis was transudative. No antibiotics. Continue chest tube drainage repeat chest x-ray today. Pulmonary consulted UTI- UA reviewed positive leukocyte esterase, urine culture grew albicans, continue Diflucan renally dosed until 10/08/16. IDDM - previously managed at home with Lantus insulin and prandial insulin SS. However had episodes of hypoglycemia, Sliding scale insulin for now. No long- acting insulin. ESRD - on hemodialysis T-, consult nephrology. Awaiting input. C Diff - positive test from [facility] 08/21/16 and was started on Vancomycin PO QID and completed 09/03/16. Continue Lactinex. History of PE/DVT - IVC filter in place. Unable to anticoagulate due to liver cirrhosis. Orthostatic hypotension- TEDs. Patient previously on Norvasc, metoprolol and lisinopril/quinapril but were stopped. Sacral wound-continue wound care. Chronic Pancreatitis - on Creon HTN -patient actually quite hypotensive, all antihypertensives were previously stopped. Liver cirrhosis, ascites, history of hepatic encephalopathy - continue with dialysis, ammonia within normal limits. US 09/13/2016 showed loculated fluid collections unable to perform paracentesis. Continue lactulose. History of respiratory failure, tracheostomy - monitor respiratory status, Neb treatments when necessary Chronic pain-narcotics on hold because of lethargy. DVT prop - IVC filter, pharmacological prophylaxis contraindicated because of liver failure Full code Discharge Planning Not ready for discharge Fede Zaragoza MD Sep 28, 2016 13:29
--- NOTE | 2016-09-28 15:03 | RADRPT ---
EXAM DATE/TIME: 09/28/2016 14:13 [facility] COMPARISON: CHEST EXPIRATION ONLY, September 23, 2016, 16:18. CHEST SINGLE AP, September, 4:53. INDICATIONS : Pneumothorax MEDICAL HISTORY : Renal disease, end stage. Diabetes mellitus type II. Cirrhosis. SURGICAL HISTORY : None. ENCOUNTER: Subsequent ACUITY: 1 week PAIN SCORE: 0/10 LOCATION: chest FINDINGS: Chest tube remains in good position on the left with very small residual left pneumothorax loculated in the base. Fluid is seen fluid is seen in the minor fissure on the right. Heart and pulmonary vas cularity are normal. CONCLUSION: Smallbore chest tube in good position with trace pneumothorax on the left. Rajendra Sharma MD FACR on September 28, 2016 at 15:00 Board Certified Radiologist. This report was verified electronically.
[2016-09-28] MEDS ORDERED: OXYC1TAB63 PO (15:39)
[2016-09-28] MEDS: NICOTINE 14 MG/24 HR PATCH TD SCH (15:40)
--- NOTE | 2016-09-28 16:46 | HHI.NPPN ---
Subjective General Problems: Anemia, Edema, Hypertension Renal Failure: End Stage Renal Disease History of Present Illness 56-year-old male with a past medical history of diabetes mellitus, history of chronic alcoholism and cirrhosis of the liver, history of recurrent ascites, end-stage renal disease on hemodialysis Monday, and Monday, history of C. difficile colitis, diabetes mellitus, pulmonary embolism, deep vein thrombosis, who was transferred from [facility] because of a pneumothorax. Additional Remarks Patient is alert, now with the chest tube, not in distress. Objective Data Data 09/27/16 09/28/16 18:59 06:59 Intake Total 360 ml Output Total 2000 ml 810 ml Balance -2000 ml -450 ml Intake Oral 360 ml Chest Tube Drainage Total 810 ml Hemodialysis 2000 ml # Voids 0 # Bowel Movements 3 Vital Signs Date Time Temp Pulse Resp B/P Pulse Ox O2 Delivery O2 Flow Rate FiO2 09/28/16 15:46 95.5 69 20 158/84 98 09/28/16 11:34 95.5 70 20 159/73 98 09/28/16 09:18 70 09/28/16 08:00 95.6 68 16 153/85 100 09/28/16 04:00 96.4 68 17 137/76 95 09/28/16 00:00 96.4 73 16 143/75 98 09/27/16 23:00 95 Nasal Cannula 2.00 09/27/16 20:00 96.6 70 16 104/64 93 09/27/16 17:47 61 18 141/78 97 09/27/16 17:25 61 18 141/72 96 09/27/16 16:55 66 18 141/79 97 -: 09/27/16 0607 09/27/16 0607 Physical Exam General Appearance: No Acute Distress, Comfortable Eyes Eye Exam: Pupils Equal Neck Neck Exam: Neck Supple, Trachea Midline Pulmonary Resp Exam: Breath Sounds Equal, No Distress, Rhonchi, Decreased Bases, Diminished Breath Sounds Cardiology CV Exam: Regular, Normal Sinus Rhythm Gastrointestinal/Abdomen GI Exam: Soft, Non-Tender, Bowel Sounds Present, Distended Extremeties Extremities Exam: No Edema Neurologic Neuro Exam: Alert, Awake, Oriented Psychiatric Psych Exam: Appropriate Responses Assessment/Plan Assessment Summary: Anemia of CKD, Hypertension, End Stage Renal Disease Problem List: (1) Anemia (2) Physical deconditioning (3) Stage II pressure ulcer of buttock (4) Ascites due to alcoholic cirrhosis (5) Hx of acute pancreatitis (6) Pneumothorax (7) ESRD (end stage renal disease) on dialysis Plan Patient has HD done yesterday. BP is now better, Posy chest tube for pneumothorax. Continue HD 3 times a week. On Epogen for anemia. Arianna Reynolds MD Sep 28, 2016 16:46
--- NOTE | 2016-09-28 20:33 | HHI.PR ---
Subjective Remarks Chest tube is still draining. Feels better , and o2 sat 95 on 3 L Objective Vital Signs Date Time Temp Pulse Resp B/P Pulse Ox O2 Delivery O2 Flow Rate FiO2 09/28/16 18:12 Nasal Cannula 2.00 09/28/16 15:46 95.5 69 20 158/84 98 09/28/16 11:34 95.5 70 20 159/73 98 09/28/16 09:18 70 09/28/16 08:00 95.6 68 16 153/85 100 09/28/16 04:00 96.4 68 17 137/76 95 09/28/16 00:00 96.4 73 16 143/75 98 09/27/16 23:00 95 Nasal Cannula 2.00 I/O 09/27/16 09/27/16 09/27/16 09/28/16 09/28/16 09/28/16 07:00 15:00 23:00 07:00 15:00 23:00 Intake Total 100 ml 120 ml 240 ml 100 ml Output Total 2000 ml 580 ml 230 ml 100 ml 150 ml Balance 100 ml -2000 ml -460 ml 10 ml 0 ml -150 ml Intake Oral 100 ml 120 ml 240 ml 100 ml Output Urine Total 0 ml Chest Tube Drainage Total 580 ml 230 ml 100 ml 150 ml Hemodialysis 2000 ml # Voids 0 0 0 1 # Bowel Movements 0 2 1 Result Diagram: 09/27/16 0607 09/27/16 0607 Objective Remarks This is a emaciated looking middle-aged white male who is pale . No distress HEENT: Head normocephalic. Pupils reactive, clear icteric. Tongue was coated. Ears, no inflammation. Neck: Supple with mild venous distension while laying flat. Trachea midline. Chest: Equal movements with crackles at the lung bases with .Occ Crackles at bases. Heart: The heart sounds are irregular, S1-S2. No murmur. Abdomen: Reveals the liver to be 2 fingerbreadths below the costal margin. Bowel sounds are active. Extremities: Edema 2+ of the lower extremities. Decreased pulses. Reflexes are 1+. The patient does move his extremities sluggishly. No lesions observed. Assessment and Plan Assessment and Plan IMPRESSION 1. Cirrhosis with ascites and pleural effusion. 2. Large left pneumothorax status post thoracentesis. 3. History of encephalopathy. Plan : 1. Cont chest tube drainage. 2. Chest X ray in am. 3. Duoneb nebs tid prn. 4. IS at bedside qid. 5. O2 2 L. 6. Will check right chest for fluid Justina Johnston MD Sep 28, 2016 20:33
[2016-09-28] MEDS: DOCUSATE SODIUM 50 MG/SENNA 8.6 MG TAB PO SCH (21:08)
[2016-09-29] VITALS (9 sets, daily range): BP systolic 124–154; BP diastolic 73–84; PULSE 67–93; RESP 12–20; TEMP 95.3–96.2; O2SAT 94–98
[2016-09-29] MEDS: LACTULOSE SYRUP 20 GM/30 ML CUP PO SCH ×2 (05:28→16:00)
[2016-09-29] MEDS: INSULIN ASPART SUPPLEMENTAL SCALE SQ SCH ×4 (06:19→20:41)
--- NOTE | 2016-09-29 07:38 | RADRPT ---
EXAM DATE/TIME: 09/29/2016 06:20 [facility] COMPARISON: CHEST SINGLE AP, September 28, 2016, 14:13. INDICATIONS : Short of breath, evaluate pneumothorax MEDICAL HISTORY : Renal disease, end stage. Diabetes mellitus type II. Cirrhosis. SURGICAL HISTORY : None. ENCOUNTER: Subsequent ACUITY: 1 week PAIN SCORE: 0/10 LOCATION: Bilateral chest FINDINGS: A single view of the chest demonstrates the left IJ dual-lumen catheter and left-sided pigtail chest tube both stable in position. I don't see a pneumothorax on the left side. There is small residual pl eural effusion bilaterally. Mild pulmonary hilar vascular congestion The cardiomediastinal contours a re unremarkable. Osseous structures are intact. CONCLUSION: Dual-lumen catheter and pigtail chest tube in good position. Small bilateral pleural effusions remain . Gary Segura MD on September 29, 2016 at 7:35 Board Certified Radiologist. This report was verified electronically.
[2016-09-29] MEDS: BACITRACIN TOP OINT 15 GM TUBE TOP SCH ×2 (09:00→21:00)
[2016-09-29] MEDS: REMOVE OLD NICODERM (NICOTINE) PATCH TD SCH (09:00)
[2016-09-29] MEDS: SUCRALFATE 1 GM TAB PO SCH ×3 (09:12→18:38)
[2016-09-29] MEDS: LACTOBACILLUS ACIDOPHILUS TAB PO SCH ×3 (09:12→18:37)
[2016-09-29] MEDS: ESCITALOPRAM OXALATE 10 MG TAB PO SCH (09:13)
[2016-09-29] MEDS: LIPASE/PROTEASE/AMYLASE (6,000/19,000/30,000) CAP PO SCH ×3 (09:13→18:38)
[2016-09-29] MEDS: METOCLOPRAMIDE HCL 10 MG TAB PO SCH ×3 (09:13→18:38)
[2016-09-29] MEDS: PANTOPRAZOLE SOD 20 MG DELAYED RELEASE TAB PO SCH (09:13)
[2016-09-29] MEDS: NICOTINE 14 MG/24 HR PATCH TD SCH (09:14)
[2016-09-29] MEDS: VITAMIN B CMPLX/VITC/FOLIC AC CAP PO SCH (09:15)
--- NOTE | 2016-09-29 12:17 | HHI.PR ---
Subjective Remarks Follow-up pneumothorax. Complains of pleuritic left-sided chest pain when he takes a deep breath. Discussed with RN Objective Vitals Vital Signs Date Time Temp Pulse Resp B/P Pulse Ox O2 Delivery O2 Flow Rate FiO2 09/29/16 08:00 95.9 67 12 154/84 95 09/29/16 07:41 Room Air 09/29/16 07:37 68 09/29/16 04:50 95.6 69 18 154/77 95 09/29/16 00:00 96.2 73 18 144/80 94 09/28/16 20:00 96.0 74 18 138/74 93 09/28/16 18:12 Nasal Cannula 2.00 09/28/16 15:46 95.5 69 20 158/84 98 I/O 09/28/16 09/28/16 09/28/16 09/29/16 09/29/16 09/29/16 07:00 15:00 23:00 07:00 15:00 23:00 Intake Total 240 ml 100 ml 320 ml 240 ml Output Total 230 ml 100 ml 150 ml 0 ml Balance 10 ml 0 ml 170 ml 240 ml Intake Oral 240 ml 100 ml 320 ml 240 ml Output Urine Total 0 ml 0 ml Chest Tube Drainage Total 230 ml 100 ml 150 ml # Voids 0 1 1 # Bowel Movements 1 1 0 Result Diagram: 09/27/16 0607 09/27/16 0607 Imaging Last Impressions Chest X-Ray 09/29/16 0000 Signed Impressions: Service Date/Time: September 06:20 - CONCLUSION: Dual-lumen catheter and pigtail chest tube in good position. Small bilateral pleural effusions remain. Gary Segura MD Chest Tube Insertion 09/27/16 1452 Signed Impressions: Service Date/Time: Tuesday, September 27, 2016 15:20 - CONCLUSION: Uncomplicated chest tube placement as above. Pete Lugo MD Chest CT 09/27/16 0000 Signed Impressions: Service Date/Time: Tuesday, September 27, 2016 15:20 - CONCLUSION: 1. Large left hydropneumothorax. A left-sided chest tube will be placed. 2. Scattered parenchymal infiltrates throughout the right lung with a very small right effusion. Pete Lugo MD Objective Remarks GENERAL: Well-developed asthenic in no distress SKIN: Warm and dry. HEAD: Atraumatic. Normocephalic. EYES: Pupils equal and round. No scleral icterus. No injection or drainage. ENT: No nasal bleeding or discharge. Mucous membranes pink and moist. NECK: Trachea midline. No JVD. CARDIOVASCULAR: Regular rate and rhythm. RESPIRATORY: No accessory muscle use. Slightly decreased breath sounds right lung GASTROINTESTINAL: Abdomen soft, non-tender, nondistended. MUSCULOSKELETAL: Extremities without clubbing, cyanosis, or edema. No obvious deformities. NEUROLOGICAL: Awake and alert. No obvious cranial nerve deficits. Motor grossly within normal limits. Five out of 5 muscle strength in the arms and legs. Normal speech. PSYCHIATRIC: Appropriate mood and affect; insight and judgment normal. Procedures Left chest tube placement A/P Problem List: (1) UTI (urinary tract infection) ICD Code: N39.0 Status: Acute (2) ESRD (end stage renal disease) on dialysis ICD Code: N18.6 Status: Chronic (3) Hx of acute pancreatitis ICD Code: Z87.19 Status: Acute (4) Ascites due to alcoholic cirrhosis ICD Code: K70.31 Status: Acute (5) Pneumothorax ICD Code: J93.9 Status: Acute Assessment and Plan Mr. Emanuel Alvarado is a 56-year-old male, with past medical history of diabetes mellitus, tobacco and alcohol abuse. He had an episode of syncope in late November 2015 evaluated at [facility] and found to have necrotizing pancreatitis with liver failure that was secondary to alcohol- induced cirrhosis. Subsequent hospital course included acute tubular necrosis patient is now hemodialysis dependent. He also had tracheostomy placed after a long ventilator support requirement. He has ongoing liver failure with ascites , metabolic encephalopathy and multiple procedures including multiple paracentesis for ascites, thoracentesis, IVC filter placement for DVT/PE and recent placement of an AV fistula of right arm for ESRD and ongoing hemodialysis. He was transferred from [facility] to the hospital for pneumothorax after thoracentesis for pleural effusion. Bilateral pleural effusions, left pneumothorax - status post 2.4 L of thoracenteses 09/23/16, chest x-ray personally reviewed, shows patchy bilateral consolidation and a large pneumothorax on the left, worsening. No leukocytosis, previous fluid analysis was transudative. No antibiotics. Continue chest tube drainage repeat chest x-ray without pneumothorax. Still on 40 cm suction. Further management per pulmonary UTI- UA reviewed positive leukocyte esterase, urine culture grew albicans, continue Diflucan renally dosed until 10/08/16. IDDM - previously managed at home with Lantus insulin and prandial insulin SS. However had episodes of hypoglycemia, Sliding scale insulin for now. No long- acting insulin. A1c 5.6 September 15. Has been hyperglycemic lately will continue sliding scale coverage for now and consider restarting long-acting insulin but at a lower dose ESRD - on hemodialysis T, consult nephrology. C Diff - positive test from [facility] 08/21/16 and was started on Vancomycin PO QID and completed 09/03/16. Continue Lactinex. History of PE/DVT - IVC filter in place. Unable to anticoagulate due to liver cirrhosis. Orthostatic hypotension- TEDs. Patient previously on Norvasc, metoprolol and lisinopril/quinapril but were stopped. Sacral wound-continue wound care. Chronic Pancreatitis - on Creon HTN -patient actually quite hypotensive, all antihypertensives were previously stopped. Liver cirrhosis, ascites, history of hepatic encephalopathy - continue with dialysis, ammonia within normal limits. US 09/13/2016 showed loculated fluid collections unable to perform paracentesis. Continue lactulose. History of respiratory failure, tracheostomy - monitor respiratory status, Neb treatments when necessary Chronic pain tolerating pain management DVT pharmacological prophylaxis contraindicated because of liver failure Full code Discharge Planning Not ready for discharge Fede Zaragoza MD Sep 29, 2016 12:17
--- NOTE | 2016-09-29 12:33 | HHI.NPPN ---
Subjective General Problems: Anemia, Edema, Hypertension Renal Failure: End Stage Renal Disease History of Present Illness 56-year-old male with a past medical history of diabetes mellitus, history of chronic alcoholism and cirrhosis of the liver, history of recurrent ascites, end-stage renal disease on hemodialysis Monday, and Monday, history of C. difficile colitis, diabetes mellitus, pulmonary embolism, deep vein thrombosis, who was transferred from [facility] because of a pneumothorax. Additional Remarks Patient is alert, no SOB, on room air, with chest tube. Objective Data Data 09/28/16 09/29/16 19:00 07:00 Intake Total 100 ml 560 ml Output Total 250 ml 0 ml Balance -150 ml 560 ml Intake Oral 100 ml 560 ml Output Urine Total 0 ml 0 ml Chest Tube Drainage Total 250 ml # Voids 1 1 # Bowel Movements 1 Vital Signs Date Time Temp Pulse Resp B/P Pulse Ox O2 Delivery O2 Flow Rate FiO2 09/29/16 08:00 95.9 67 12 154/84 95 09/29/16 07:41 Room Air 09/29/16 07:37 68 09/29/16 04:50 95.6 69 18 154/77 95 09/29/16 00:00 96.2 73 18 144/80 94 09/28/16 20:00 96.0 74 18 138/74 93 09/28/16 18:12 Nasal Cannula 2.00 09/28/16 15:46 95.5 69 20 158/84 98 -: 09/27/16 0607 09/27/16 0607 Physical Exam General Appearance: No Acute Distress, Comfortable Eyes Eye Exam: Pupils Equal Neck Neck Exam: Neck Supple, Trachea Midline Pulmonary Resp Exam: Breath Sounds Equal, No Distress, Rhonchi, Decreased Bases, Diminished Breath Sounds Cardiology CV Exam: Regular, Normal Sinus Rhythm Gastrointestinal/Abdomen GI Exam: Soft, Non-Tender, Bowel Sounds Present, Distended Extremeties Extremities Exam: No Edema Neurologic Neuro Exam: Alert, Awake, Oriented Psychiatric Psych Exam: Appropriate Responses Assessment/Plan Assessment Summary: Anemia of CKD, Hypertension, End Stage Renal Disease Problem List: (1) Anemia (2) Physical deconditioning (3) Stage II pressure ulcer of buttock (4) Ascites due to alcoholic cirrhosis (5) Hx of acute pancreatitis (6) Pneumothorax (7) ESRD (end stage renal disease) on dialysis Plan BP is now better, Post chest tube for pneumothorax. Continue HD 3 times a week. On Epogen for anemia. Pulmonary following. HD will be today. Arianna Reynolds MD Sep 29, 2016 12:33
[2016-09-29] MEDS: EPOETIN ALFA 10,000 UNITS/ML VIAL IV PRN (16:29)
[2016-09-29] MEDS: HEPARIN SODIUM - IV 10,000 UNITS/10 ML VIAL PRN (16:29)
[2016-09-29] MEDS: GENTAMICIN SULFATE (DIALYSIS USE ONLY) 20 MG/2 ML VIAL IV PRN (16:30)
[2016-09-29] MEDS: FLUCONAZOLE 100 MG TAB PO SCH (18:37)
--- NOTE | 2016-09-29 20:02 | HHI.PR ---
Subjective Remarks Chest tube is still draining. Feels better , and o2 sat 95 on RA. Wants tube out Objective Vital Signs Date Time Temp Pulse Resp B/P Pulse Ox O2 Delivery O2 Flow Rate FiO2 09/29/16 18:03 95.3 73 16 124/73 97 09/29/16 13:15 95 21 09/29/16 12:00 95.3 69 16 146/80 95 09/29/16 08:00 95.9 67 12 154/84 95 09/29/16 07:41 Room Air 09/29/16 07:37 68 09/29/16 04:50 95.6 69 18 154/77 95 09/29/16 00:00 96.2 73 18 144/80 94 I/O 09/28/16 09/28/16 09/28/16 09/29/16 09/29/16 09/29/16 07:00 15:00 23:00 07:00 15:00 23:00 Intake Total 240 ml 100 ml 320 ml 240 ml 120 ml Output Total 230 ml 100 ml 150 ml 0 ml 400 ml Balance 10 ml 0 ml 170 ml 240 ml -280 ml Intake Oral 240 ml 100 ml 320 ml 240 ml 120 ml Output Urine Total 0 ml 0 ml Chest Tube Drainage Total 230 ml 100 ml 150 ml 400 ml # Voids 0 1 1 0 # Bowel Movements 1 1 0 1 Result Diagram: 09/27/16 0609/27/16 06 Objective Remarks This is a emaciated looking middle-aged white male who is pale . No distress HEENT: Head normocephalic. Pupils reactive, clear icteric. Tongue was coated. Ears, no inflammation. Neck: Supple with mild venous distension while laying flat. Trachea midline. Chest: Equal movements with crackles at the lung bases with .Occ Crackles at bases. Heart: The heart sounds are irregular, S1-S2. No murmur. Abdomen: Reveals the liver to be 2 fingerbreadths below the costal margin. Bowel sounds are active. Extremities: Edema 1+ of the lower extremities. Decreased pulses. Reflexes are 1+. The patient does move his extremities . No lesions observed. Assessment and Plan Assessment and Plan IMPRESSION 1. Cirrhosis with ascites and pleural effusion. 2. Large left pneumothorax status post thoracentesis. 3. History of encephalopathy. Plan : 1. Cont chest tube drainage. 2. Chest X ray in am. 3. Duoneb nebs tid prn. 4. IS at bedside qid. 5. O2 2 L.PRN 6. BMP in am Justina Johnston MD Sep 29, 2016 20:02
[2016-09-29] MEDS: DOCUSATE SODIUM 50 MG/SENNA 8.6 MG TAB PO SCH (20:33)
[2016-09-30] VITALS (9 sets, daily range): BP systolic 134–149; BP diastolic 73–90; PULSE 68–83; RESP 16–20; TEMP 95.3–96.7; O2SAT 93–96
[2016-09-30] MEDS: LACTULOSE SYRUP 20 GM/30 ML CUP PO SCH ×2 (06:02→15:57)
[2016-09-30] MEDS: INSULIN ASPART SUPPLEMENTAL SCALE SQ SCH ×4 (06:08→22:36)
[2016-09-30] MEDS: PANTOPRAZOLE SOD 20 MG DELAYED RELEASE TAB PO SCH (08:17)
[2016-09-30] MEDS: LACTOBACILLUS ACIDOPHILUS TAB PO SCH ×4 (08:17→17:45)
[2016-09-30] MEDS: LIPASE/PROTEASE/AMYLASE (6,000/19,000/30,000) CAP PO SCH ×3 (08:17→17:45)
[2016-09-30] MEDS: NICOTINE 14 MG/24 HR PATCH TD SCH (08:17)
[2016-09-30] MEDS: SODIUM CHLORIDE 0.9% FLUSH 5 ML FLUSH IVF PRN (08:18)
[2016-09-30] MEDS: REMOVE OLD NICODERM (NICOTINE) PATCH TD SCH (08:18)
[2016-09-30] MEDS: VITAMIN B CMPLX/VITC/FOLIC AC CAP PO SCH (08:18)
[2016-09-30] MEDS: ESCITALOPRAM OXALATE 10 MG TAB PO SCH (08:18)
[2016-09-30] MEDS: SUCRALFATE 1 GM TAB PO SCH ×3 (08:18→17:45)
[2016-09-30] MEDS: METOCLOPRAMIDE HCL 10 MG TAB PO SCH ×3 (08:18→17:00)
[2016-09-30] MEDS: BACITRACIN TOP OINT 15 GM TUBE TOP SCH ×2 (08:21→21:00)
--- NOTE | 2016-09-30 08:49 | HHI.NPPN ---
Subjective General Problems: Anemia, Edema, Hypertension Renal Failure: End Stage Renal Disease History of Present Illness 56-year-old male with a past medical history of diabetes mellitus, history of chronic alcoholism and cirrhosis of the liver, history of recurrent ascites, end-stage renal disease on hemodialysis Monday, and Monday, history of C. difficile colitis, diabetes mellitus, pulmonary embolism, deep vein thrombosis, who was transferred from [facility] because of a pneumothorax. Additional Remarks Patient is alert, no SOB, on room air, with chest tube, off and on has confusion. Objective Data Data 09/29/16 09/30/16 19:00 07:00 Intake Total 120 ml 720 ml Output Total 400 ml 370 ml Balance -280 ml 350 ml Intake Oral 120 ml 720 ml Chest Tube Drainage Total 400 ml 370 ml # Voids 0 # Bowel Movements 1 7 Vital Signs Date Time Temp Pulse Resp B/P Pulse Ox O2 Delivery O2 Flow Rate FiO2 09/30/16 05:16 72 09/30/16 03:30 95.8 83 18 144/74 96 09/30/16 02:30 95.7 72 16 149/77 95 09/30/16 02:30 95.7 72 16 149/77 95 09/30/16 01:30 95.5 74 19 134/78 94 09/29/16 23:45 96.2 72 19 135/74 96 09/29/16 20:10 96.0 93 20 142/79 96 09/29/16 20:10 98 21 09/29/16 18:03 95.3 73 16 124/73 97 09/29/16 13:15 95 21 09/29/16 12:00 95.3 69 16 146/80 95 -: 09/27/16 0607 09/27/16 0607 Physical Exam General Appearance: No Acute Distress, Comfortable Eyes Eye Exam: Pupils Equal Neck Neck Exam: Neck Supple, Trachea Midline Pulmonary Resp Exam: Breath Sounds Equal, No Distress, Rhonchi, Decreased Bases, Diminished Breath Sounds Cardiology CV Exam: Regular, Normal Sinus Rhythm Gastrointestinal/Abdomen GI Exam: Soft, Non-Tender, Bowel Sounds Present, Distended Extremeties Extremities Exam: No Edema Neurologic Neuro Exam: Alert, Awake, Oriented Psychiatric Psych Exam: Appropriate Responses Assessment/Plan Assessment Summary: Anemia of CKD, Hypertension, End Stage Renal Disease Problem List: (1) Anemia (2) Physical deconditioning (3) Stage II pressure ulcer of buttock (4) Ascites due to alcoholic cirrhosis (5) Hx of acute pancreatitis (6) Pneumothorax (7) ESRD (end stage renal disease) on dialysis Plan BP is now better, Post chest tube for pneumothorax. Continue HD 3 times a week. On Epogen for anemia. Pulmonary following. HD done yesterday. Having confusion off and on. Check CBC and Ammonia level. Arianna Reynolds MD Sep 30, 2016 08:49
--- NOTE | 2016-09-30 09:17 | RADRPT ---
EXAM DATE/TIME: 09/30/2016 08:47 [facility] COMPARISON: CHEST SINGLE AP, September 29, 2016, 6:20. INDICATIONS : Short of breath, evaluate pneumothorax MEDICAL HISTORY : Renal disease, end stage. Cirrhosis. Diabetes mellitus type II. SURGICAL HISTORY : None. ENCOUNTER: Subsequent ACUITY: 1 week PAIN SCORE: 0/10 LOCATION: Bilateral chest FINDINGS: Left base pigtail thoracostomy tube is stable in position. Left chest dialysis catheter is stable and satisfactory position. There is persistent mild pleural-parenchymal opacity at the right lung base. Continued slight improvement in aeration at the left base. Cardiomediastinal contours are grossly sta ble. CONCLUSION: Continued interval improvement Jluis Cabral MD on September 30, 2016 at 9:10 Board Certified Radiologist. This report was verified electronically.
[2016-09-30 12:18] LABS: HEMATOCRIT 29.4 % (39.0-51.0); MEAN CELL VOLUME 67.9 FL (80.0-100.0); MEAN CORPUSCULAR HEMOGLOBIN 21.5 PG (27.0-34.0); MEAN CORPUSCULAR HGB CONC 31.7 % (32.0-36.0); PLATELET COUNT 230 TH/MM3 (150-450); RED BLOOD COUNT 4.34 MIL/MM3 (4.50-5.90); RED CELL DISTRIBUTION WIDTH 18.9 % (11.6-17.2); WHITE BLOOD COUNT 10.8 TH/MM3 (4.0-11.0)
[2016-09-30 12:24] LABS: REVIEW FLAG FINAL
--- NOTE | 2016-09-30 12:43 | HHI.PR ---
Subjective Remarks Follow-up pneumothorax. Patient fell yesterday. He tried to get out of bed and was too weak. Sustained skin tear left elbow, abrasion right clavicle and right ankle. Patient has no complaints today. Alert and a rented however patient's concerned about being confused. Discussed with RN and pulmonary Objective Vitals Vital Signs Date Time Temp Pulse Resp B/P Pulse Ox O2 Delivery O2 Flow Rate FiO2 09/30/16 11:30 95.3 73 16 140/79 95 09/30/16 07:30 68 09/30/16 07:30 Room Air 09/30/16 07:30 95.6 76 16 147/90 95 09/30/16 05:16 72 09/30/16 03:30 95.8 83 18 144/74 96 09/30/16 02:30 95.7 72 16 149/77 95 09/30/16 02:30 95.7 72 16 149/77 95 09/30/16 01:30 95.5 74 19 134/78 94 09/29/16 23:45 96.2 72 19 135/74 96 09/29/16 20:10 96.0 93 20 142/79 96 09/29/16 20:10 98 21 09/29/16 18:03 95.3 73 16 124/73 97 09/29/16 13:15 95 21 I/O 09/29/16 09/29/16 09/29/16 09/30/16 09/30/16 09/30/16 07:00 15:00 23:00 07:00 15:00 23:00 Intake Total 240 ml 120 ml 240 ml 480 ml Output Total 0 ml 400 ml 250 ml 120 ml Balance 240 ml -280 ml -10 ml 360 ml Intake Oral 240 ml 120 ml 240 ml 480 ml Output Urine Total 0 ml Chest Tube Drainage Total 400 ml 250 ml 120 ml # Voids 0 # Bowel Movements 0 1 5 2 Result Diagram: 09/30/16 1201 09/27/16 0607 Imaging Last Impressions Chest X-Ray 09/30/16 0000 Signed Impressions: Service Date/Time: Friday, September 30, 2016 08:47 - CONCLUSION: Continued interval improvement Jluis Cabral MD Chest Tube Insertion 09/27/16 1452 Signed Impressions: Service Date/Time: Tuesday, September 27, 2016 15:20 - CONCLUSION: Uncomplicated chest tube placement as above. Pete Lugo MD Chest CT 09/27/16 0000 Signed Impressions: Service Date/Time: Tuesday, September 27, 2016 15:20 - CONCLUSION: 1. Large left hydropneumothorax. A left-sided chest tube will be placed. 2. Scattered parenchymal infiltrates throughout the right lung with a very small right effusion. Pete Lugo MD Objective Remarks GENERAL: Well-developed asthenic in no distress SKIN: Warm and dry. HEAD: Atraumatic. Normocephalic. EYES: Pupils equal and round. No scleral icterus. No injection or drainage. ENT: No nasal bleeding or discharge. Mucous membranes pink and moist. NECK: Trachea midline. No JVD. CARDIOVASCULAR: Regular rate and rhythm. RESPIRATORY: No accessory muscle use. Slightly decreased breath sounds right lung GASTROINTESTINAL: Abdomen soft, non-tender, nondistended. MUSCULOSKELETAL: Extremities without clubbing, cyanosis, or edema. No obvious deformities. NEUROLOGICAL: Awake and alert. No obvious cranial nerve deficits. Motor grossly within normal limits. Five out of 5 muscle strength in the arms and legs. Normal speech. PSYCHIATRIC: Appropriate mood and affect; insight and judgment normal. Procedures Left chest tube placement A/P Problem List: (1) UTI (urinary tract infection) ICD Code: N39.0 Status: Acute (2) ESRD (end stage renal disease) on dialysis ICD Code: N18.6 Status: Chronic (3) Hx of acute pancreatitis ICD Code: Z87.19 Status: Acute (4) Ascites due to alcoholic cirrhosis ICD Code: K70.31 Status: Acute (5) Pneumothorax ICD Code: J93.9 Status: Acute Assessment and Plan Mr. Emanuel Alvarado is a 56-year-old male, with past medical history of diabetes mellitus, tobacco and alcohol abuse. He had an episode of syncope in late November 2015 evaluated at [facility] and found to have necrotizing pancreatitis with liver failure that was secondary to alcohol- induced cirrhosis. Subsequent hospital course included acute tubular necrosis patient is now hemodialysis dependent. He also had tracheostomy placed after a long ventilator support requirement. He has ongoing liver failure with ascites , metabolic encephalopathy and multiple procedures including multiple paracentesis for ascites, thoracentesis, IVC filter placement for DVT/PE and recent placement of an AV fistula of right arm for ESRD and ongoing hemodialysis. He was transferred from [facility] to the hospital for pneumothorax after thoracentesis for pleural effusion. Bilateral pleural effusions, left pneumothorax - status post 2.4 L of thoracenteses 09/23/16, chest x-ray personally reviewed, shows patchy bilateral consolidation and a large pneumothorax on the left, worsening. No leukocytosis, previous fluid analysis was transudative. No antibiotics. Continue chest tube drainage repeat chest x-ray without pneumothorax. Still on 40 cm suction. Further management per pulmonary UTI- UA reviewed positive leukocyte esterase, urine culture grew albicans, continue Diflucan renally dosed until 10/08/16. IDDM - previously managed at home with Lantus insulin and prandial insulin SS. However had episodes of hypoglycemia, Sliding scale insulin for now. No long- acting insulin. A1c 5.6 September 15. Has been hyperglycemic lately will continue sliding scale coverage for now and consider restarting long-acting insulin but at a lower dose ESRD - on hemodialysis T--S, consult nephrology. C Diff - positive test from [facility] 08/21/16 and was started on Vancomycin PO QID and completed 09/03/16. Continue Lactinex. Now having loose stools pending repeat C. 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 Unable to anticoagulate due to liver cirrhosis. Orthostatic hypotension- TEDs. Patient previously on Norvasc, metoprolol and lisinopril/quinapril but were stopped. Sacral wound-continue wound care. Chronic Pancreatitis - on Creon HTN -patient actually quite hypotensive, all antihypertensives were previously stopped. Liver cirrhosis, ascites, history of hepatic encephalopathy - continue with dialysis, ammonia within normal limits. US 09/13/2016 showed loculated fluid collections unable to perform paracentesis. Continue lactulose patient has been refusing. White reports of confusion, follow up repeat CBC and ammonia History of respiratory failure, tracheostomy - monitor respiratory status, Neb treatments when necessary Chronic pain tolerating pain management Fall secondary to deconditioning. Fall precautions. Wound care with regards to abrasion and skin tear. Patient counseled. Continue physical therapy DVT pharmacological prophylaxis contraindicated because of liver failure Full code Discharge Planning Not ready for discharge Fede Zaragoza MD Sep 30, 2016 12:43
[2016-09-30 12:44] LABS: C. DIFF EPI 027 PRESUMPTIVE NEGATIVE (NEGATIVE); C. DIFF TOXIN PCR NEGATIVE (NEGATIVE)
[2016-09-30] MEDS: FLUCONAZOLE 100 MG TAB PO SCH (14:25)
--- NOTE | 2016-09-30 18:59 | HHI.PR ---
Subjective Remarks Chest tube is still draining upto 700 CC/Day. Feels better , and o2 sat 95 on RA. Objective Vital Signs Date Time Temp Pulse Resp B/P Pulse Ox O2 Delivery O2 Flow Rate FiO2 09/30/16 15:30 95.6 76 16 145/75 93 09/30/16 11:30 95.3 73 16 140/79 95 09/30/16 07:30 68 09/30/16 07:30 Room Air 09/30/16 07:30 95.6 76 16 147/90 95 09/30/16 05:16 72 09/30/16 03:30 95.8 83 18 144/74 96 09/30/16 02:30 95.7 72 16 149/77 95 09/30/16 02:30 95.7 72 16 149/77 95 09/30/16 01:30 95.5 74 19 134/78 94 09/29/16 23:45 96.2 72 19 135/74 96 09/29/16 20:10 96.0 93 20 142/79 96 09/29/16 20:10 98 21 I/O 09/29/16 09/29/16 09/29/16 09/30/16 09/30/16 09/30/16 07:00 15:00 23:00 07:00 15:00 23:00 Intake Total 240 ml 120 ml 240 ml 480 ml 480 ml Output Total 0 ml 400 ml 250 ml 120 ml 230 ml Balance 240 ml -280 ml -10 ml 360 ml 250 ml Intake Oral 240 ml 120 ml 240 ml 480 ml 480 ml Output Urine Total 0 ml Chest Tube Drainage Total 400 ml 250 ml 120 ml 230 ml # Voids 0 1 # Bowel Movements 0 1 5 2 2 Result Diagram: 09/30/16 1201 09/27/16 0607 Objective Remarks This is a emaciated looking middle-aged white male who is pale . No distress HEENT: Head normocephalic. Pupils reactive, clear icteric. Tongue was coated. Ears, no inflammation. Neck: Supple with mild venous distension while laying flat. Trachea midline. Chest: Equal movements with crackles at the lung bases with . Few wheezes heard Heart: The heart sounds are irregular, S1-S2. No murmur. Abdomen: Reveals the liver to be 2 fingerbreadths below the costal margin. Bowel sounds are active. Extremities: Edema 1+ of the lower extremities. Decreased pulses. Reflexes are 1+. The patient does move his extremities . No lesions observed. Assessment and Plan Assessment and Plan IMPRESSION 1. Cirrhosis with ascites and pleural effusion. 2. Large left pneumothorax status post thoracentesis. 3. History of encephalopathy. Plan : 1. Cont chest tube to drainage. 2. Chest X ray in am. 3. Duoneb nebs tid prn. 4. IS at bedside qid. 5. D/C O2 6. Pain Control. Justina Johnston MD Sep 30, 2016 18:59
[2016-09-30] MEDS: DOCUSATE SODIUM 50 MG/SENNA 8.6 MG TAB PO SCH (21:00)
[2016-10-01 03:30] VITALS: BP 133/73; PULSE 75; RESP 16; TEMP 95.6; O2SAT 95
--- NOTE | 2016-10-01 06:56 | RADRPT ---
EXAM DATE/TIME: 10/01/2016 06:18 [facility] COMPARISON: CHEST SINGLE AP, September 30, 2016, 8:47. INDICATIONS : Shortness of breath. MEDICAL HISTORY : Renal disease, end stage. Diabetes mellitus type II. SURGICAL HISTORY : None. ENCOUNTER: Subsequent ACUITY: 3 weeks PAIN SCORE: Non-responsive. LOCATION: Bilateral chest FINDINGS: Large bore central line tip projects in the right atrium. Pigtail chest tube remains projected at th e left base. Bilateral parenchymal opacities lateral left midlung and central right midlung are stab le in appearance. Patchy airspace infiltrates in the retrocardiac region. The heart is normal size. CONCLUSION: Stable appearance to the bilateral opacities and to the left lower lung infiltrates. No new findings . Raul Jacques MD on October 01, 2016 at 6:54 Board Certified Radiologist. This report was verified electronically.
[2016-10-01] MEDS: LACTULOSE SYRUP 20 GM/30 ML CUP PO SCH ×2 (07:00→09:00)
[2016-10-01] MEDS: INSULIN ASPART SUPPLEMENTAL SCALE SQ SCH ×4 (07:00→20:51)
[2016-10-01] MEDS: METOCLOPRAMIDE HCL 10 MG TAB PO SCH ×3 (08:00→15:11)
[2016-10-01] MEDS: SUCRALFATE 1 GM TAB PO SCH ×3 (08:31→15:11)
[2016-10-01] MEDS: LIPASE/PROTEASE/AMYLASE (6,000/19,000/30,000) CAP PO SCH ×3 (08:31→15:12)
[2016-10-01] MEDS: LACTOBACILLUS ACIDOPHILUS TAB PO SCH ×3 (08:31→15:11)
[2016-10-01] MEDS: VITAMIN B CMPLX/VITC/FOLIC AC CAP PO SCH (08:34)
[2016-10-01] MEDS: ESCITALOPRAM OXALATE 10 MG TAB PO SCH (08:34)
[2016-10-01] MEDS: PANTOPRAZOLE SOD 20 MG DELAYED RELEASE TAB PO SCH (08:34)
[2016-10-01] MEDS: SODIUM CHLORIDE 0.9% FLUSH 5 ML FLUSH IVF PRN (08:34)
[2016-10-01] MEDS: NICOTINE 14 MG/24 HR PATCH TD SCH (08:34)
[2016-10-01 08:45] VITALS: PULSE 72
[2016-10-01] MEDS: BACITRACIN TOP OINT 15 GM TUBE TOP SCH ×2 (08:45→20:49)
[2016-10-01] MEDS: REMOVE OLD NICODERM (NICOTINE) PATCH TD SCH (08:45)
--- NOTE | 2016-10-01 09:48 | HHI.NPPN ---
Subjective General Problems: Anemia, Edema, Hypertension Renal Failure: End Stage Renal Disease History of Present Illness 56-year-old male with a past medical history of diabetes mellitus, history of chronic alcoholism and cirrhosis of the liver, history of recurrent ascites, end-stage renal disease on hemodialysis Monday, and Monday, history of C. difficile colitis, diabetes mellitus, pulmonary embolism, deep vein thrombosis, who was transferred from [facility] because of a pneumothorax. Additional Remarks patient was seen during dialysis. He is lethargic, weak appearing with generalized muscle wasting. Review of Systems General Constitutional: Fatigue Objective Data Data 09/30/16 10/01/16 19:00 07:00 Intake Total 480 ml 360 ml Output Total 230 ml 60 ml Balance 250 ml 300 ml Intake Oral 480 ml 360 ml Chest Tube Drainage Total 230 ml 60 ml # Voids 1 1 # Bowel Movements 2 1 Vital Signs Date Time Temp Pulse Resp B/P Pulse Ox O2 Delivery O2 Flow Rate FiO2 10/01/16 08:45 Room Air 10/01/16 08:45 72 10/01/16 03:30 95.6 75 16 133/73 95 09/30/16 23:30 96.7 77 18 137/73 94 09/30/16 19:30 95.7 72 20 144/80 95 09/30/16 15:30 95.6 76 16 145/75 93 09/30/16 11:30 95.3 73 16 140/79 95 -: 09/30/16 1201 09/27/16 0607 Physical Exam General Appearance: No Acute Distress, Comfortable Eyes Eye Exam: Pupils Equal Neck Neck Exam: Neck Supple, Trachea Midline Pulmonary Resp Exam: Breath Sounds Equal, No Distress, Rhonchi, Decreased Bases, Diminished Breath Sounds Cardiology CV Exam: Regular, Normal Sinus Rhythm Gastrointestinal/Abdomen GI Exam: Soft, Non-Tender, Bowel Sounds Present Extremeties Extremities Exam: No Edema Neurologic Neuro Exam: Alert, Awake, Oriented Psychiatric Psych Exam: Appropriate Responses Assessment/Plan Assessment Summary: Anemia of CKD, Hypertension, End Stage Renal Disease Problem List: (1) Anemia Plan: Epogen with dialysis. (2) Physical deconditioning Plan: needs nutritional support and physical therapy. (3) Stage II pressure ulcer of buttock Plan: wound care. (4) Ascites due to alcoholic cirrhosis (5) Hx of acute pancreatitis (6) Pneumothorax Plan: patient still has a chest tube. (7) ESRD (end stage renal disease) on dialysis Plan: Dialysis today, on 3K/2.5Ca, UF goal is 1300 ml. BFR is 350 ml/min. Porfirio Neil MD Oct 01, 2016 09:47
[2016-10-01] MEDS: GENTAMICIN SULFATE (DIALYSIS USE ONLY) 20 MG/2 ML VIAL IV PRN (12:15)
[2016-10-01] MEDS: HEPARIN SODIUM - IV 10,000 UNITS/10 ML VIAL PRN (12:15)
[2016-10-01] MEDS: EPOETIN ALFA 10,000 UNITS/ML VIAL IV PRN (12:16)
[2016-10-01 14:09] LABS: BACTERIA, URINE FEW /hpf; BLOOD, URINE NEG (NEG); COMMENT (UR) CULTURE INDICATED; CULTURE IF INDICATED CULTURE INDICATED; GLUCOSE,URINE NEG (NEG); KETONE, URINE NEG (NEG); MUCUS URINE FEW /lpf (OCC); NITRITE,URINE NEG (NEG); PH, URINE 6.5 (5.0-8.5); SQUAMOUS EPITHELIAL CELL URINE 2 /hpf (0-5); URINE COLOR YELLOW (YELLW/STRAW)
[2016-10-01 14:50] VITALS: BP 136/71; PULSE 70; RESP 17; TEMP 95.9; O2SAT 96
[2016-10-01] MEDS: FLUCONAZOLE 100 MG TAB PO SCH (15:00)
--- NOTE | 2016-10-01 15:00 | HHI.PR ---
Subjective Remarks F/u confusion. No complaints dw who states he is much improved with occasional confusion like after HD stated he wanted to get up and walk home. Discussed with RN Objective Vitals Vital Signs Date Time Temp Pulse Resp B/P Pulse Ox O2 Delivery O2 Flow Rate FiO2 10/01/16 08:45 Room Air 10/01/16 08:45 72 10/01/16 03:30 95.6 75 16 133/73 95 09/30/16 23:30 96.7 77 18 137/73 94 09/30/16 19:30 95.7 72 20 144/80 95 09/30/16 15:30 95.6 76 16 145/75 93 I/O 09/30/16 09/30/16 09/30/16 10/01/16 10/01/16 10/01/16 07:00 15:00 23:00 07:00 15:00 23:00 Intake Total 480 ml 480 ml 240 ml 120 ml Output Total 120 ml 230 ml 60 ml 1120 ml Balance 360 ml 250 ml 180 ml 120 ml -1120 ml Intake Oral 480 ml 480 ml 240 ml 120 ml Chest Tube Drainage Total 120 ml 230 ml 60 ml 120 ml Hemodialysis 1000 ml # Voids 1 1 0 # Bowel Movements 2 2 1 0 Result Diagram: 09/30/16 1201 09/27/16 0607 Objective Remarks GENERAL: Well-developed asthenic in no distress SKIN: Warm and dry. HEAD: Atraumatic. Normocephalic. EYES: Pupils equal and round. No scleral icterus. No injection or drainage. ENT: No nasal bleeding or discharge. Mucous membranes pink and moist. NECK: Trachea midline. No JVD. CARDIOVASCULAR: Regular rate and rhythm. RESPIRATORY: No accessory muscle use. Slightly decreased breath sounds right lung GASTROINTESTINAL: Abdomen soft, non-tender, nondistended. MUSCULOSKELETAL: Extremities without clubbing, cyanosis, or edema. No obvious deformities. NEUROLOGICAL: Awake and alert. No obvious cranial nerve deficits. Motor grossly within normal limits. Five out of 5 muscle strength in the arms and legs. Normal speech. PSYCHIATRIC: Appropriate mood and affect; insight and judgment normal. Procedures Left chest tube placement A/P Problem List: (1) UTI (urinary tract infection) ICD Code: N39.0 Status: Acute (2) ESRD (end stage renal disease) on dialysis ICD Code: N18.6 Status: Chronic (3) Hx of acute pancreatitis ICD Code: Z87.19 Status: Acute (4) Ascites due to alcoholic cirrhosis ICD Code: K70.31 Status: Acute (5) Pneumothorax ICD Code: J93.9 Status: Acute Assessment and Plan Mr. Emanuel Alvarado is a 56-year-old male, with past medical history of diabetes mellitus, tobacco and alcohol abuse. He had an episode of syncope in late November 2015 evaluated at [facility] and found to have necrotizing pancreatitis with liver failure that was secondary to alcohol- induced cirrhosis. Subsequent hospital course included acute tubular necrosis patient is now hemodialysis dependent. He also had tracheostomy placed after a long ventilator support requirement. He has ongoing liver failure with ascites , metabolic encephalopathy and multiple procedures including multiple paracentesis for ascites, thoracentesis, IVC filter placement for DVT/PE and recent placement of an AV fistula of right arm for ESRD and ongoing hemodialysis. He was transferred from [facility] to the hospital for pneumothorax after thoracentesis for pleural effusion. Bilateral pleural effusions, left pneumothorax - status post 2.4 L of thoracenteses 09/23/16, chest x-ray personally reviewed, shows patchy bilateral consolidation and a large pneumothorax on the left, worsening. No leukocytosis, previous fluid analysis was transudative. No antibiotics. Continue chest tube drainage repeat chest x-ray without pneumothorax. Still on 40 cm suction. Further management per pulmonary UTI- UA reviewed positive leukocyte esterase, urine culture grew albicans, continue Diflucan renally dosed until 10/08/16. Repeat UA IDDM - previously managed at home with Lantus insulin and prandial insulin SS. However had episodes of hypoglycemia, Sliding scale insulin for now. No long- acting insulin. A1c 5.6 September 15. Has been hyperglycemic lately will continue sliding scale coverage for now and consider restarting long-acting insulin but at a lower dose ESRD - on hemodialysis T-TH-S, consult nephrology. C Diff - positive test from [facility] 08/21/16 and was started on Vancomycin PO QID and completed 09/03/16. Continue Lactinex. Now having loose stools pending repeat C. 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 Unable to anticoagulate due to liver cirrhosis. Orthostatic hypotension- TEDs. Patient previously on Norvasc, metoprolol and lisinopril/quinapril but were stopped. Sacral wound-continue wound care. Chronic Pancreatitis - on Creon HTN -patient actually quite hypotensive, all antihypertensives were previously stopped. Liver cirrhosis, ascites, history of hepatic encephalopathy - continue with dialysis, ammonia within normal limits. US 09/13/2016 showed loculated fluid collections unable to perform paracentesis. Continue lactulose patient has been refusing. Improving confusion which could be multifactorial from medication, hypoglycemia and end-stage renal disease. Limit narcotic use History of respiratory failure, tracheostomy - monitor respiratory status, Neb treatments when necessary Chronic pain tolerating pain management Fall secondary to deconditioning. Fall precautions. Wound care with regards to abrasion and skin tear. Patient counseled. Continue physical therapy DVT pharmacological prophylaxis contraindicated because of liver failure Full code Discharge Planning Not ready for discharge. Pulmonary has to wean and discontinue chest tube Fede Zaragoza MD Oct 01, 2016 15:00
[2016-10-01] MEDS ORDERED: PILL SPLITTER OTHER PRN (15:15)
[2016-10-01 20:25] VITALS: BP 131/78; PULSE 74; RESP 17; TEMP 97.1; O2SAT 94
[2016-10-01] MEDS: DOCUSATE SODIUM 50 MG/SENNA 8.6 MG TAB PO SCH (20:48)
[2016-10-02] VITALS: BP 142/72; PULSE 77; RESP 19; TEMP 95.9; O2SAT 92
[2016-10-02 04:20] VITALS: BP 141/76; PULSE 72; RESP 18; TEMP 96.3; O2SAT 93
[2016-10-02] MEDS: LACTULOSE SYRUP 20 GM/30 ML CUP PO SCH ×2 (06:12→15:46)
[2016-10-02] MEDS: INSULIN ASPART SUPPLEMENTAL SCALE SQ SCH ×4 (06:12→21:00)
[2016-10-02 08:00] VITALS: BP 118/67; PULSE 74; RESP 12; TEMP 95.7; O2SAT 95
[2016-10-02 08:42] LABS: BICARBONATE 31.1 MEQ/L (21.0-32.0); POTASSIUM 4.2 MEQ/L (3.5-5.1)
[2016-10-02] MEDS: NICOTINE 14 MG/24 HR PATCH TD SCH (08:56)
[2016-10-02] MEDS: REMOVE OLD NICODERM (NICOTINE) PATCH TD SCH (08:56)
[2016-10-02] MEDS: METOCLOPRAMIDE HCL 10 MG TAB PO SCH ×3 (08:57→15:47)
[2016-10-02] MEDS: LACTOBACILLUS ACIDOPHILUS TAB PO SCH ×3 (08:57→15:47)
[2016-10-02] MEDS: SODIUM CHLORIDE 0.9% FLUSH 5 ML FLUSH IVF PRN (08:57)
[2016-10-02] MEDS: VITAMIN B CMPLX/VITC/FOLIC AC CAP PO SCH (08:58)
[2016-10-02] MEDS: LIPASE/PROTEASE/AMYLASE (6,000/19,000/30,000) CAP PO SCH ×3 (08:58→15:47)
[2016-10-02] MEDS: ESCITALOPRAM OXALATE 10 MG TAB PO SCH (08:58)
[2016-10-02] MEDS: PANTOPRAZOLE SOD 20 MG DELAYED RELEASE TAB PO SCH (08:58)
[2016-10-02] MEDS: SUCRALFATE 1 GM TAB PO SCH (08:58)
[2016-10-02] MEDS: BACITRACIN TOP OINT 15 GM TUBE TOP SCH ×2 (08:59→20:58)
[2016-10-02 09:04] LABS: AUTOMATED NEUTROPHIL # 4.3 TH/MM3 (1.8-7.7); BASOPHIL # 0.1 TH/MM3 (0-0.2); BASOPHIL % 1.2 % (0.0-2.0); EOSINOPHIL # 0.4 TH/MM3 (0-0.4); EOSINOPHIL % 4.6 % (0.0-4.0); HEMATOCRIT 29.1 % (39.0-51.0); LYMPH % 38.4 % (9.0-44.0); LYMPHOCYTE # 3.7 TH/MM3 (1.0-4.8); MEAN CELL VOLUME 69.8 FL (80.0-100.0); MEAN CORPUSCULAR HEMOGLOBIN 21.5 PG (27.0-34.0); MEAN CORPUSCULAR HGB CONC 30.8 % (32.0-36.0); MONO % 11.1 % (0.0-8.0); NEUT % 44.7 % (16.0-70.0); PLATELET COUNT 260 TH/MM3 (150-450); RED BLOOD COUNT 4.17 MIL/MM3 (4.50-5.90); RED CELL DISTRIBUTION WIDTH 19.4 % (11.6-17.2); WHITE BLOOD COUNT 9.6 TH/MM3 (4.0-11.0)
[2016-10-02 09:08] LABS: HEMO FLAGS AUTO DIFF
--- NOTE | 2016-10-02 09:17 | HHI.NPPN ---
Subjective General Problems: Anemia, Edema, Hypertension Renal Failure: End Stage Renal Disease History of Present Illness 56-year-old male with a past medical history of diabetes mellitus, history of chronic alcoholism and cirrhosis of the liver, history of recurrent ascites, end-stage renal disease on hemodialysis Monday, and Monday, history of C. difficile colitis, diabetes mellitus, pulmonary embolism, deep vein thrombosis, who was transferred from [facility] because of a pneumothorax. Additional Remarks He underwent dialysis yesterday. Labs were reviewed. Stable. Low normal phosphorus, not on binders, needs nutritional support. Review of Systems General Constitutional: Fatigue Objective Data Data 10/01/16 10/02/16 19:00 07:00 Intake Total 480 ml 720 ml Output Total 1120 ml 75 ml Balance -640 ml 645 ml Intake Oral 480 ml 720 ml Chest Tube Drainage Total 120 ml 75 ml Hemodialysis 1000 ml # Voids 1 2 # Bowel Movements 1 2 Vital Signs Date Time Temp Pulse Resp B/P Pulse Ox O2 Delivery O2 Flow Rate FiO2 10/02/16 04:20 96.3 72 18 141/76 93 10/02/16 00:00 95.9 77 19 142/72 92 10/01/16 20:25 97.1 74 17 131/78 94 10/01/16 14:50 95.9 70 17 136/71 96 -: 10/02/16 0700 10/02/16 0700 Microbiology 10/01/16 Urine Culture, Received Pending Physical Exam General Appearance: No Acute Distress, Comfortable Eyes Eye Exam: Pupils Equal Neck Neck Exam: Neck Supple, Trachea Midline Pulmonary Resp Exam: Breath Sounds Equal, No Distress, Rhonchi, Decreased Bases, Diminished Breath Sounds Cardiology CV Exam: Regular, Normal Sinus Rhythm Gastrointestinal/Abdomen GI Exam: Soft, Non-Tender, Bowel Sounds Present Extremeties Extremities Exam: No Edema Neurologic Neuro Exam: Alert, Awake, Oriented Psychiatric Psych Exam: Appropriate Responses Assessment/Plan Assessment Summary: Anemia of CKD, Hypertension, End Stage Renal Disease Problem List: (1) ESRD (end stage renal disease) on dialysis Plan: Continue dialysis TTS. Labs were reviewed. He is on Sucralfate: it can cause Aluminum toxicity in dialysis patients, I have stopped it. (2) Anemia Plan: Epogen with dialysis. (3) Physical deconditioning Plan: needs nutritional support and physical therapy. (4) Stage II pressure ulcer of buttock Plan: wound care. (5) Ascites due to alcoholic cirrhosis (6) Hx of acute pancreatitis (7) Pneumothorax Plan: patient still has a chest tube. Plan Porfirio Harris MD Oct 02, 2016 09:17
[2016-10-02 10:56] LABS: TARGET CELLS 3+ (NORMAL)
--- NOTE | 2016-10-02 10:56 | HHI.PR ---
Subjective Remarks Follow-up pneumothorax. Denies chest pain or shortness of breath. No confusion today. Discussed with RN Objective Vitals Vital Signs Date Time Temp Pulse Resp B/P Pulse Ox O2 Delivery O2 Flow Rate FiO2 10/02/16 08:00 95.7 74 12 118/67 95 10/02/16 04:20 96.3 72 18 141/76 93 10/02/16 00:00 95.9 77 19 142/72 92 10/01/16 20:25 97.1 74 17 131/78 94 10/01/16 14:50 95.9 70 17 136/71 96 I/O 10/01/16 10/01/16 10/01/16 10/02/16 10/02/16 10/02/16 07:00 15:00 23:00 07:00 15:00 23:00 Intake Total 120 ml 480 ml 480 ml 240 ml Output Total 1120 ml 75 ml Balance 120 ml -640 ml 480 ml 165 ml Intake Oral 120 ml 480 ml 480 ml 240 ml Chest Tube Drainage Total 120 ml 75 ml Hemodialysis 1000 ml # Voids 0 1 1 1 # Bowel Movements 0 1 2 0 Result Diagram: 10/02/16 0700 10/02/16 0700 Imaging Last 48 hours Impressions Chest X-Ray 10/01/16 06 Signed Impressions: Service Date/Time: Saturday, October 01, 2016 06:18 - CONCLUSION: Stable appearance to the bilateral opacities and to the left lower lung infiltrates. No new findings. Raul Jacques MD Objective Remarks GENERAL: Well-developed asthenic in no distress SKIN: Warm and dry. HEAD: Atraumatic. Normocephalic. EYES: Pupils equal and round. No scleral icterus. No injection or drainage. ENT: No nasal bleeding or discharge. Mucous membranes pink and moist. NECK: Trachea midline. No JVD. CARDIOVASCULAR: Regular rate and rhythm. RESPIRATORY: No accessory muscle use. Slightly decreased breath sounds right lung. Chest tube in place GASTROINTESTINAL: Abdomen soft, non-tender, nondistended. MUSCULOSKELETAL: Extremities without clubbing, cyanosis, or edema. No obvious deformities. NEUROLOGICAL: Awake and alert. No obvious cranial nerve deficits. Motor grossly within normal limits. Five out of 5 muscle strength in the arms and legs. Normal speech. PSYCHIATRIC: Appropriate mood and affect; insight and judgment normal. Procedures Left chest tube placement A/P Problem List: (1) UTI (urinary tract infection) ICD Code: N39.0 Status: Acute (2) ESRD (end stage renal disease) on dialysis ICD Code: N18.6 Status: Chronic (3) Hx of acute pancreatitis ICD Code: Z87.19 Status: Acute (4) Ascites due to alcoholic cirrhosis ICD Code: K70.31 Status: Acute (5) Pneumothorax ICD Code: J93.9 Status: Acute Assessment and Plan Mr. Emanuel Alvarado is a 56-year-old male, with past medical history of diabetes mellitus, tobacco and alcohol abuse. He had an episode of syncope in late November 2015 evaluated at [facility] and found to have necrotizing pancreatitis with liver failure that was secondary to alcohol- induced cirrhosis. Subsequent hospital course included acute tubular necrosis patient is now hemodialysis dependent. He also had tracheostomy placed after a long ventilator support requirement. He has ongoing liver failure with ascites , metabolic encephalopathy and multiple procedures including multiple paracentesis for ascites, thoracentesis, IVC filter placement for DVT/PE and recent placement of an AV fistula of right arm for ESRD and ongoing hemodialysis. He was transferred from [facility] to the hospital for pneumothorax after thoracentesis for pleural effusion. Bilateral pleural effusions, left pneumothorax - status post 2.4 L of thoracenteses 09/23/16, chest x-ray personally reviewed, shows patchy bilateral consolidation and a large pneumothorax on the left, worsening. No leukocytosis, previous fluid analysis was transudative. No antibiotics. Continue chest tube drainage repeat chest x-ray without pneumothorax. Still on 40 cm suction. Further management per pulmonary, will discontinue chest tube once output has significantly decreased UTI- UA reviewed positive leukocyte esterase, urine culture grew albicans, continue Diflucan renally dosed until 10/08/16. Repeat UA IDDM - previously managed at home with Lantus insulin and prandial insulin SS. However had episodes of hypoglycemia, Sliding scale insulin for now. No long- acting insulin. A1c 5.6 September 15. Has been hyperglycemic lately will continue sliding scale coverage for now and consider restarting long-acting insulin but at a lower dose ESRD - on hemodialysis T--, consult nephrology. C Diff - positive test from [facility] 08/21/16 and was started on Vancomycin PO QID and completed 09/03/16. Continue Lactinex. Now having loose stools pending repeat C. 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 Unable to anticoagulate due to liver cirrhosis. Orthostatic hypotension- TEDs. Patient previously on Norvasc, metoprolol and lisinopril/quinapril but were stopped. Sacral wound-continue wound care. Chronic Pancreatitis - on Creon HTN -patient actually quite hypotensive, all antihypertensives were previously stopped. Liver cirrhosis, ascites, history of hepatic encephalopathy - continue with dialysis, ammonia within normal limits. US 09/13/2016 showed loculated fluid collections unable to perform paracentesis. Continue lactulose patient has been refusing. Improving confusion which could be multifactorial from medication, hypoglycemia and end-stage renal disease. Limit narcotic use History of respiratory failure, tracheostomy - monitor respiratory status, Neb treatments when necessary Chronic pain tolerating pain management Fall secondary to deconditioning. Fall precautions. Wound care with regards to abrasion and skin tear. Patient counseled. Continue physical therapy DVT pharmacological prophylaxis contraindicated because of liver failure Full code Discharge Planning Not ready for discharge. Pulmonary has to wean and discontinue chest tube Fede Zaragoza MD Oct 02, 2016 10:56
[2016-10-02 10:57] LABS: PLATELET ESTIMATE SMEAR NORMAL (NORMAL); PLATELET MORPHOLOGY ENLARGED (NORMAL); SCAN/DIFF AUTO DIFF CONFIRMED
[2016-10-02 11:34] VITALS: BP 135/76; PULSE 70; RESP 14; TEMP 96.6; O2SAT 96
[2016-10-02 15:00] VITALS: BP 141/78; PULSE 72; RESP 15; TEMP 95.8; O2SAT 94
[2016-10-02] MEDS: FLUCONAZOLE 100 MG TAB PO SCH (15:00)
[2016-10-02] MEDS: DOCUSATE SODIUM 50 MG/SENNA 8.6 MG TAB PO SCH (20:58)
[2016-10-02 22:20] VITALS: BP 135/67; PULSE 72; RESP 19; TEMP 96; O2SAT 94
[2016-10-03 01:16] VITALS: BP 141/75; PULSE 72; RESP 18; TEMP 96.2; O2SAT 95
[2016-10-03 05:30] VITALS: BP 139/74; PULSE 69; RESP 18; TEMP 96.1; O2SAT 93
[2016-10-03] MEDS: INSULIN ASPART SUPPLEMENTAL SCALE SQ SCH ×4 (05:57→22:34)
[2016-10-03] MEDS: LACTULOSE SYRUP 20 GM/30 ML CUP PO SCH ×2 (05:57→16:00)
[2016-10-03 08:06] VITALS: BP 136/79; PULSE 72; RESP 15; TEMP 95.8; O2SAT 94
--- NOTE | 2016-10-03 08:28 | RADRPT ---
EXAM DATE/TIME: 10/03/2016 08:05 [place] COMPARISON: CHEST EXPIRATION ONLY, September 23, 2016, 16:18. CT THORAX W/O CONTRAST, Sep ua2016, 15:20. CHEST SINGLE AP, October 01, 2016, 6:18. INDICATIONS: Short of breath, pleural effusion, left side chest tube MEDICAL HISTORY: Renal disease, end stage. Diabetes mellitus type II. Cirrhosis. SURGICAL HISTORY: None. ENCOUNTER: Subsequent ACUITY: 1 month PAIN SCORE: Non-responsive. LOCATION: Bilateral chest FINDINGS: Vas catheter is entering from the left. Left-sided chest tube is evident. There is no pneumothorax. There is apparent loculated fluid in the fissure on the right. Heart and pulmonary vascularity are normal. CONCLUSION: Small bore chest tube in place without residual pneumothorax. Rajendra Sharma MD FACR on October 03, 2016 at 8:21 Board Certified Radiologist. This report was verified electronically.
[2016-10-03] MEDS: REMOVE OLD NICODERM (NICOTINE) PATCH TD SCH (08:46)
[2016-10-03] MEDS: NICOTINE 14 MG/24 HR PATCH TD SCH (08:46)
[2016-10-03] MEDS: VITAMIN B CMPLX/VITC/FOLIC AC CAP PO SCH (08:47)
[2016-10-03] MEDS: PANTOPRAZOLE SOD 20 MG DELAYED RELEASE TAB PO SCH (08:47)
[2016-10-03] MEDS: LACTOBACILLUS ACIDOPHILUS TAB PO SCH ×3 (08:47→17:08)
[2016-10-03] MEDS: ESCITALOPRAM OXALATE 10 MG TAB PO SCH (08:47)
[2016-10-03] MEDS: BACITRACIN TOP OINT 15 GM TUBE TOP SCH ×2 (08:47→20:56)
[2016-10-03] MEDS: METOCLOPRAMIDE HCL 10 MG TAB PO SCH ×3 (08:47→17:08)
[2016-10-03] MEDS: LIPASE/PROTEASE/AMYLASE (6,000/19,000/30,000) CAP PO SCH ×3 (09:00→18:50)
--- NOTE | 2016-10-03 10:21 | HHI.NPPN ---
Subjective General Problems: Anemia, Edema, Hypertension Renal Failure: End Stage Renal Disease History of Present Illness 56-year-old male with a past medical history of diabetes mellitus, history of chronic alcoholism and cirrhosis of the liver, history of recurrent ascites, end-stage renal disease on hemodialysis Monday, and Monday, history of C. difficile colitis, diabetes mellitus, pulmonary embolism, deep vein thrombosis, who was transferred from [facility] because of a pneumothorax. Additional Remarks Having breakfast. No new issues. Continues to have a chest tube. Review of Systems General Constitutional: Fatigue Objective Data Data 10/02/16 10/03/16 19:00 07:00 Intake Total 960 ml 360 ml Output Total 490 ml 300 ml Balance 470 ml 60 ml Intake Oral 960 ml 360 ml Chest Tube Drainage Total 490 ml 300 ml # Voids 2 0 # Bowel Movements 2 0 Vital Signs Date Time Temp Pulse Resp B/P Pulse Ox O2 Delivery O2 Flow Rate FiO2 10/03/16 08:06 95.8 72 15 136/79 94 10/03/16 05:30 96.1 69 18 139/74 93 10/03/16 01:16 96.2 72 18 141/75 95 10/02/16 22:20 96.0 72 19 135/67 94 10/02/16 15:00 95.8 72 15 141/78 94 10/02/16 11:34 96.6 70 14 135/76 96 -: 10/02/16 0700 10/02/16 0700 Physical Exam General Appearance: No Acute Distress, Comfortable Eyes Eye Exam: Pupils Equal Neck Neck Exam: Neck Supple, Trachea Midline Pulmonary Resp Exam: Breath Sounds Equal, No Distress, Rhonchi, Decreased Bases, Diminished Breath Sounds Cardiology CV Exam: Regular, Normal Sinus Rhythm Gastrointestinal/Abdomen GI Exam: Soft, Non-Tender, Bowel Sounds Present Extremeties Extremities Exam: No Edema Neurologic Neuro Exam: Alert, Awake, Oriented Psychiatric Psych Exam: Appropriate Responses Assessment/Plan Assessment Summary: Anemia of CKD, Hypertension, End Stage Renal Disease Problem List: (1) ESRD (end stage renal disease) on dialysis Plan: Continue dialysis TTS. Needs nutritional support. Continue Nepro. (2) Anemia Plan: Epogen with dialysis. (3) Physical deconditioning Plan: needs nutritional support and physical therapy. (4) Stage II pressure ulcer of buttock Plan: wound care. (5) Ascites due to alcoholic cirrhosis (6) Hx of acute pancreatitis (7) Pneumothorax Plan: patient still has a chest tube. Plan Porfirio Harris MD Oct 03, 2016 10:21
--- NOTE | 2016-10-03 10:21 | HHI.NPPN ---
Subjective General Problems: Anemia, Edema, Hypertension Renal Failure: Chronic, End Stage Renal Disease Interval History Lying in bed, sleepy. States he ate full breakfast. Increased output from Chest tube. (Annel Villavicencio) Review of Systems General Constitutional: Fatigue (Annel Villavicencio) Respiratory Lungs: SOB Respiratory Remarks improved (Annel Villavicencio) Objective Data Data 10/02/16 10/03/16 19:00 07:00 Intake Total 960 ml 360 ml Output Total 490 ml 300 ml Balance 470 ml 60 ml Intake Oral 960 ml 360 ml Chest Tube Drainage Total 490 ml 300 ml # Voids 2 0 # Bowel Movements 2 0 Vital Signs Date Time Temp Pulse Resp B/P Pulse Ox O2 Delivery O2 Flow Rate FiO2 10/03/16 08:06 95.8 72 15 136/79 94 10/03/16 05:30 96.1 69 18 139/74 93 10/03/16 01:16 96.2 72 18 141/75 95 10/02/16 22:20 96.0 72 19 135/67 94 10/02/16 15:00 95.8 72 15 141/78 94 10/02/16 11:34 96.6 70 14 135/76 96 (Annel Villavicencio) -: 10/02/16 0700 10/02/16 0700 Tubes & Lines Comment chest tube left side AVF right upper arm (Annel Villavicencio) Physical Exam General Appearance: No Acute Distress, Comfortable, Malnourished (Annel Villavicencio) Eyes Eye Exam: Pupils Equal (Annel Villavicencio) Throat Throat Exam: Oral Mucosa Movico & Moist (Annel Villavicencio) Neck Neck Exam: Neck Supple, Trachea Midline (Annel Villavicencio) Pulmonary Resp Exam: No Distress, Rhonchi, Decreased Bases, Diminished Breath Sounds Resp Remarks diminished on left (Annel Villavicencio) Cardiology CV Exam: Regular, Normal Sinus Rhythm (Annel Villavicencio) Gastrointestinal/Abdomen GI Exam: Soft, Non-Tender, Bowel Sounds Present (Annel Villavicencio) Musculoskeletal MS Exam: Joints Intact, Atrophy (Annel Villavicencio) Integumentary Skin Exam: Clear, Warm, Dry, Intact (Annel Villavicencio) Extremeties Extremities Exam: No Edema, Pedal Pulses Palpable Extremeties Remarks Right AVF, + thrill/bruit (Annel Villavicencio) Neurologic Neuro Exam: Alert, Awake, Oriented (Annel Villavicencio) Psychiatric Psych Exam: Appropriate Responses (Annel Villavicencio) Assessment/Plan Discussed Condition With: Patient Assessment Summary: Anemia of CKD, Malnutrition, Hypertension, End Stage Renal Disease Problem List: (1) ESRD (end stage renal disease) on dialysis Plan: Continue dialysis TTS. He had 1L UF on Monday. Labs were reviewed. No acute electrolyte concerns Will await dialysis tomorrow fluid volume status acceptable labs in am (2) Anemia Plan: Continue Epogen with dialysis. follow hemoglobin (3) Pneumothorax Plan: Left sided chest tube in place pulmonary following, appreciate recommendations (4) Physical deconditioning Plan: needs nutritional support and physical therapy. High protein diet, he is on Nephrocaps (5) Stage II pressure ulcer of buttock Plan: wound care. (6) Ascites due to alcoholic cirrhosis Plan: monitor Plan (Annel Villavicencio) Plan patient was seen and examined. Dialysis tomorrow. Still has chest tube. ( Porfirio Harris MD) Annel Villavicencio Oct 03, 2016 10:20 Porfirio Harris MD Oct 03, 2016 19:40
[2016-10-03 12:04] VITALS: BP 149/73; PULSE 71; RESP 17; TEMP 95.6; O2SAT 96
--- NOTE | 2016-10-03 14:44 | HHI.PR ---
Subjective Remarks Follow up for pneumothorax, pleural effusions bilaterally. The patient is awake , alert with family member at bedside. He appears in better spirits, more talkative and smiling. Eating well. Denies any current shortness of breath. Pain at chest tube site well controlled. Reportedly having less output into chest tube. Denies fevers. O2 sat 94% on room air. The patient is nonambulatory at baseline per family at bedside. Objective Vitals Vital Signs Date Time Temp Pulse Resp B/P Pulse Ox O2 Delivery O2 Flow Rate FiO2 10/03/16 08:06 95.8 72 15 136/79 94 10/03/16 05:30 96.1 69 18 139/74 93 10/03/16 01:16 96.2 72 18 141/75 95 10/02/16 22:20 96.0 72 19 135/67 94 10/02/16 15:00 95.8 72 15 141/78 94 I/O 10/02/16 10/02/16 10/02/16 10/03/16 10/03/16 10/03/16 07:00 15:00 23:00 07:00 15:00 23:00 Intake Total 240 ml 960 ml 360 ml Output Total 75 ml 40 ml 495 ml 255 ml Balance 165 ml 920 ml -495 ml 105 ml Intake Oral 240 ml 960 ml 360 ml Chest Tube Drainage Total 75 ml 40 ml 495 ml 255 ml # Voids 1 2 0 # Bowel Movements 0 2 0 Result Diagram: 10/02/16 0700 10/02/16 0700 Imaging Last Impressions Chest X-Ray 10/03/16 0800 Signed Impressions: Service Date/Time: Monday, October 03, 2016 08:05 - CONCLUSION: Small bore chest tube in place without residual pneumothorax. Rajendra Sharma MD FACR Chest Tube Insertion 09/27/16 1452 Signed Impressions: Service Date/Time: Tuesday, September 27, 2016 15:20 - CONCLUSION: Uncomplicated chest tube placement as above. Pete Lugo MD Chest CT 09/27/16 0000 Signed Impressions: Service Date/Time: Tuesday, September 27, 2016 15:20 - CONCLUSION: 1. Large left hydropneumothorax. A left-sided chest tube will be placed. 2. Scattered parenchymal infiltrates throughout the right lung with a very small right effusion. Pete Lugo MD Objective Remarks GENERAL: Well-nourished, well-developed middle aged male patient in NAD. SKIN: Warm and dry. No rash. HEAD: Normocephalic. Atraumatic. EYES: Pupils equal and round. No scleral icterus. No injection or drainage. ENT: No nasal bleeding or discharge. Mucous membranes pink and moist. NECK: Supple. Trachea midline. CARDIOVASCULAR: Regular rate and rhythm. S1, S2 noted. No murmur appreciated. RESPIRATORY: No accessory muscle use. Decreased breath sounds throughout, otherwise clear to auscultation. Breath sounds equal bilaterally. GASTROINTESTINAL: Abdomen soft, non-tender, nondistended. Normoactive bowel sounds x4. MUSCULOSKELETAL: No obvious deformities. Extremities without clubbing, cyanosis , or edema. NEUROLOGICAL: Awake and alert. No obvious cranial nerve deficits. Motor grossly within normal limits. Normal speech. PSYCHIATRIC: Appropriate mood and affect; insight and judgment normal. Procedures 09/27/16-Left chest tube placement Medications and IVs Current Medications Medications (Trade) Dose Ordered Sig/Saul Route Start Time Stop Time Status Last Admin (Baciguent Oint) 1 applic Q12HR TOP 09/26/16 21:00 10/02/16 20:58 (Lexapro) 10 mg DAILY PO 09/27/16 09:00 10/03/16 08:47 (Diflucan) 50 mg SuMoWeFr PO 09/26/16 15:00 10/02/16 15:00 (Diflucan) 100 mg TuThSa PO 09/27/16 15:00 10/01/16 15:00 (Lactinex) 1 tab TID PO 09/26/16 18:00 10/03/16 12:29 (Lactulose Liq) 30 ml BIDAC PO 09/26/16 16:00 (Reglan) 5 mg TIDAC PO 09/26/16 17:00 10/03/16 12:30 (Zofran Odt) 4 mg Q6HR PRN SL 09/26/16 13:15 (Creon 6-19-30) 2 cap TID PO 09/26/16 18:00 10/03/16 12:35 (Protonix) 20 mg DAILY PO 09/27/16 09:00 10/03/16 08:47 (Melissa-Colace) 2 tab HS PO 09/26/16 21:00 (Nephrocaps) 1 cap DAILY PO 09/27/16 09:00 10/03/16 08:47 (Desitin 40% Oint) 1 applic UNSCH PRN TOPICAL 09/26/16 13:15 (D50w (Vial) Inj) 25 ml UNSCH PRN IV 09/26/16 13:45 (Glucagon Inj) 1 mg UNSCH PRN OTHER 09/26/16 13:45 Naloxone HCl 0.4 mg 0.4 mg UNSCH PRN IV 09/27/16 08:45 (NS 1000 ml Inj) 1,000 ml @ 0 mls/hr Q0M PRN IV 09/27/16 09:54 09/27/16 10:37 Heparin Sodium (Porcine) 8000 units 8,000 units UNSCH PRN IVF 09/27/16 10:00 Sodium Chloride 1,000 ml @ 200 mls/hr Q5H PRN IV 09/27/16 09:54 (NS 1000 ml Inj) 1,000 ml @ 0 mls/hr Q0M PRN IV 09/27/16 09:54 (Mannitol Inj) 12.5 gm UNSCH PRN IV 09/27/16 10:00 (Albumin 25% Inj) 25 gm UNSCH PRN IV 09/27/16 10:00 (NS Flush) 5 ml UNSCH PRN IVF 09/27/16 10:00 10/02/16 08:57 (Heparin Inj) UNSCH PRN .XX 09/27/16 10:00 10/01/16 12:15 (Gentamicin (Dialysis) Inj) 20 mg UNSCH PRN IV 09/27/16 10:00 10/01/16 12:15 (Zofran Inj) 4 mg UNSCH PRN IV 09/27/16 10:00 09/30/16 17:37 (Tylenol) 650 mg UNSCH PRN PO 09/27/16 10:00 (Benadryl) 25 mg UNSCH PRN PO 09/27/16 10:00 (Nitrostat Sl) 0.4 mg UNSCH PRN SL 09/27/16 10:00 (Catapres) 0.1 mg UNSCH PRN PO 09/27/16 10:00 (Epogen Inj) 10,000 units UNSCH PRN IV 09/27/16 10:00 1/7/17 12:16 (Gelfoam 12 Mm/7 Mm Top) 1 foam UNSCH PRN TOP 09/27/16 10:00 (Habitrol 14 Mg Patch.24 Hr) 1 patch DAILY TD 09/28/16 15:00 10/03/16 08:46 Miscellaneous Information 1 DAILY TD 09/29/16 09:00 10/03/16 08:46 (Roxicodone) 2.5 mg Q4H PRN PO 10/01/16 16:00 10/03/16 08:56 (Pill Splitter) 1 ea UNSCH PRN OTHER 10/01/16 15:15 Urinary Catheter: No A/P Problem List: (1) UTI (urinary tract infection) ICD Code: N39.0 Status: Acute (2) ESRD (end stage renal disease) on dialysis ICD Code: N18.6 Status: Chronic (3) Hx of acute pancreatitis ICD Code: Z87.19 Status: Acute (4) Ascites due to alcoholic cirrhosis ICD Code: K70.31 Status: Acute (5) Pneumothorax ICD Code: J93.9 Status: Acute Assessment and Plan 56-year-old male, with PMH of diabetes, tobacco and alcohol abuse. Had an episode of syncope in late November 2015, evaluated at [facility], found to have necrotizing pancreatitis with liver failure that was secondary to alcohol-induced cirrhosis; hospitalization complicated by acute tubular necrosis, now hemodialysis dependent. Also had tracheostomy placed after a long ventilator support requirement. He has ongoing liver failure with ascites, metabolic encephalopathy and multiple procedures including multiple paracentesis for ascites, thoracentesis, IVC filter placement for DVT/PE and recent placement of an AV fistula of right arm for ESRD and ongoing hemodialysis. He was transferred from [facility] to the hospital on 09/26/16 for pneumothorax after thoracentesis for pleural effusion. Bilateral pleural effusions, left pneumothorax: s/p 2.4 L of thoracenteses 09/23, CXR reviewed, showed patchy bilateral consolidation and a large pneumothorax on the left, worsening. No leukocytosis, previous fluid analysis was transudative. No antibiotics. Continue chest tube drainage. Repeat CXR without pneumothorax. Still on 40 cm suction. Further management per pulmonary , will discontinue chest tube once output has significantly decreased, improving. UTI: UA reviewed, positive leukocyte esterase, urine culture grew albicans, continue Diflucan renally dosed until 10/08/16. Repeat UA. IDDM: previously managed at home with Lantus insulin and prandial insulin SS. However had episodes of hypoglycemia, SSI for now. No long-acting insulin. HgbA1c 5.6 09/15. Now has been hyperglycemic lately, will continue sliding scale coverage for now and consider restarting long-acting insulin but at a lower dose. ESRD: on hemodialysis T-, consulted nephrology. Recent C Diff: positive test from [facility] 08/21/16 and was started on Vancomycin PO QID and completed 09/03/16. Continue Lactinex. Had loose stools again however repeat C.difficile 09/30 negative. 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 Unable to anticoagulate due to liver cirrhosis. Orthostatic hypotension: TEDs. Patient previously on Norvasc, metoprolol and lisinopril/quinapril but were stopped. Sacral wound-continue wound care. Chronic Pancreatitis - on Creon HTN -patient's BP actually well controlled. All antihypertensives were previously stopped. Liver cirrhosis, ascites, history of hepatic encephalopathy: continue with dialysis, ammonia wnl. US 09/13/2016 showed loculated fluid collections unable to perform paracentesis. Continued lactulose however patient has been refusing since admission on 09/26. Improving confusion which could be multifactorial from medication, hypoglycemia and end-stage renal disease. Limit narcotic use. History of respiratory failure, tracheostomy: monitor respiratory status, Neb treatments prn. Chronic pain: currently tolerating pain management Fall secondary to deconditioning: Fall precautions. Wound care with regards to abrasion and skin tear. Patient counseled. Continue physical therapy. Patient nonambulatory at baseline. DVT pharmacological prophylaxis contraindicated because of liver failure Full code Written by Sayra Bentley, acting as scribe for Dr. Zaragoza on 10/03/16 at 14:00. The documentation accurately reflects the work performed [id number] by me on at 1400 Sayra Bentley PA-C Oct 03, 2016 14:44 Fede Zaragoza MD Oct 03, 2016 16:56
[2016-10-03 15:44] VITALS: BP 142/79; PULSE 72; RESP 15; TEMP 95.6; O2SAT 97
[2016-10-03] MEDS: FLUCONAZOLE 100 MG TAB PO SCH (17:10)
[2016-10-03 20:00] VITALS: BP 144/74; PULSE 72; RESP 17; TEMP 96.5; O2SAT 97
--- NOTE | 2016-10-03 20:08 | HHI.PR ---
Subjective Remarks Chest tube is draining less . Feels better ,and taking more Orally. and o2 sat 95 on RA. Objective Vital Signs Date Time Temp Pulse Resp B/P Pulse Ox O2 Delivery O2 Flow Rate FiO2 10/03/16 15:44 95.6 72 15 142/79 97 10/03/16 12:04 95.6 71 17 149/73 96 10/03/16 08:06 95.8 72 15 136/79 94 10/03/16 05:30 96.1 69 18 139/74 93 10/03/16 01:16 96.2 72 18 141/75 95 10/02/16 22:20 96.0 72 19 135/67 94 I/O 10/02/16 10/02/16 10/02/16 10/03/16 10/03/16 10/03/16 07:00 15:00 23:00 07:00 15:00 23:00 Intake Total 240 ml 960 ml 360 ml 720 ml Output Total 75 ml 40 ml 495 ml 255 ml 250 ml Balance 165 ml 920 ml -495 ml 105 ml 470 ml Intake Oral 240 ml 960 ml 360 ml 720 ml Chest Tube Drainage Total 75 ml 40 ml 495 ml 255 ml 250 ml # Voids 1 2 0 1 # Bowel Movements 0 2 0 1 Result Diagram: 10/02/16 0700 10/02/16 0700 Objective Remarks This is a emaciated looking middle-aged white male who is pale . No distress HEENT: Head normocephalic. Pupils reactive, Tongue dry Ears, no inflammation. Neck: Supple with mild venous distension while laying flat. Trachea midline. Chest: Equal movements with crackles at the lung bases with . Few wheezes heard Heart: The heart sounds are irregular, S1-S2. No murmur. Abdomen: Reveals the liver to be 2 fingerbreadths below the costal margin. Bowel sounds are active. Extremities: Edema 1+ of the lower extremities. Decreased pulses. Reflexes are 1+. The patient does move his extremities well . No lesions observed. Assessment and Plan Assessment and Plan IMPRESSION 1. Cirrhosis with ascites and pleural effusion. 2. Large left pneumothorax status post thoracentesis. 3. History of encephalopathy. Plan : 1. Cont chest tube to drainage. 2. Could consider placing Pleur X catheter for halfway Drainage 3. Duoneb nebs tid prn. 4. IS at bedside qid. 5. Up with help 6. Pain Control. 7. Labs in am Justina Johnston MD Oct 03, 2016 20:08
[2016-10-03] MEDS: DOCUSATE SODIUM 50 MG/SENNA 8.6 MG TAB PO SCH (20:55)
[2016-10-04] VITALS (8 sets, daily range): BP systolic 109–147; BP diastolic 66–82; PULSE 71–101; RESP 16–18; TEMP 95.8–98.4; O2SAT 95–97
[2016-10-04] MEDS: INSULIN ASPART SUPPLEMENTAL SCALE SQ SCH ×4 (06:18→21:00)
[2016-10-04] MEDS: LACTULOSE SYRUP 20 GM/30 ML CUP PO SCH ×2 (06:18→16:00)
[2016-10-04] MEDS: METOCLOPRAMIDE HCL 10 MG TAB PO SCH ×3 (08:00→17:52)
[2016-10-04] MEDS: LACTOBACILLUS ACIDOPHILUS TAB PO SCH ×3 (09:00→17:52)
[2016-10-04] MEDS: REMOVE OLD NICODERM (NICOTINE) PATCH TD SCH (09:00)
[2016-10-04] MEDS: VITAMIN B CMPLX/VITC/FOLIC AC CAP PO SCH ×2 (09:00→13:36)
[2016-10-04] MEDS: BACITRACIN TOP OINT 15 GM TUBE TOP SCH ×2 (09:00→21:00)
[2016-10-04] MEDS: PANTOPRAZOLE SOD 20 MG DELAYED RELEASE TAB PO SCH ×2 (09:00→13:36)
[2016-10-04] MEDS: LIPASE/PROTEASE/AMYLASE (6,000/19,000/30,000) CAP PO SCH ×3 (09:00→17:52)
--- NOTE | 2016-10-04 09:35 | HHI.NPPN ---
Subjective General Problems: Anemia, Edema, Hypertension Renal Failure: Chronic, End Stage Renal Disease Additional Remarks patient was seen and examined during dialysis. Notes were reviewed. Offers no complaints. On 3K, BFR 400 ml/min, UF goal is 2 liters. Review of Systems General Constitutional: Fatigue Respiratory Lungs: SOB Respiratory Remarks improved Objective Data Data 10/03/16 10/04/16 19:00 07:00 Intake Total 720 ml 720 ml Output Total 250 ml 375 ml Balance 470 ml 345 ml Intake Oral 720 ml 720 ml Chest Tube Drainage Total 250 ml 375 ml # Voids 1 2 # Bowel Movements 1 0 Vital Signs Date Time Temp Pulse Resp B/P Pulse Ox O2 Delivery O2 Flow Rate FiO2 10/04/16 07:58 75 10/04/16 04:00 97.6 74 18 139/79 97 10/04/16 00:00 97.1 71 17 147/82 96 10/03/16 20:00 96.5 72 17 144/74 97 10/03/16 15:44 95.6 72 15 142/79 97 10/03/16 12:04 95.6 71 17 149/73 96 -: 10/02/16 0700 10/02/16 0700 Tubes & Lines Comment chest tube left side AVF right upper arm Physical Exam General Appearance: No Acute Distress, Comfortable, Malnourished Eyes Eye Exam: Pupils Equal Throat Throat Exam: Oral Mucosa [place] & Moist Neck Neck Exam: Neck Supple, Trachea Midline Pulmonary Resp Exam: No Distress, Rhonchi, Decreased Bases, Diminished Breath Sounds Cardiology CV Exam: Regular, Normal Sinus Rhythm Gastrointestinal/Abdomen GI Exam: Soft, Non-Tender, Bowel Sounds Present Musculoskeletal MS Exam: Joints Intact, Atrophy Integumentary Skin Exam: Clear, Warm, Dry, Intact Extremeties Extremities Exam: No Edema, Pedal Pulses Palpable Neurologic Neuro Exam: Alert, Awake, Oriented Psychiatric Psych Exam: Appropriate Responses Assessment/Plan Discussed Condition With: Patient Assessment Summary: Anemia of CKD, Malnutrition, Hypertension, End Stage Renal Disease Problem List: (1) ESRD (end stage renal disease) on dialysis Plan: Continue dialysis TTS. Dialysis today as ordered. Needs nutritional support. Continue Nepro. (2) Anemia Plan: Epogen with dialysis. (3) Physical deconditioning Plan: needs nutritional support and physical therapy. (4) Stage II pressure ulcer of buttock Plan: wound care. (5) Ascites due to alcoholic cirrhosis (6) Hx of acute pancreatitis (7) Pneumothorax Plan: patient still has a chest tube. Porfirio Harris MD Oct 04, 2016 09:35
[2016-10-04] MEDS: HEPARIN SODIUM - IV 10,000 UNITS/10 ML VIAL PRN (11:17)
[2016-10-04] MEDS: EPOETIN ALFA 10,000 UNITS/ML VIAL IV PRN (11:17)
[2016-10-04] MEDS: GENTAMICIN SULFATE (DIALYSIS USE ONLY) 20 MG/2 ML VIAL IV PRN (11:17)
[2016-10-04] MEDS: ESCITALOPRAM OXALATE 10 MG TAB PO SCH (13:36)
[2016-10-04] MEDS: NICOTINE 14 MG/24 HR PATCH TD SCH (13:37)
--- NOTE | 2016-10-04 15:05 | HHI.PR ---
Subjective Remarks Follow-up pneumothorax. No new complaints. Tolerated hemodialysis. Discussed with RN Objective Vitals Vital Signs Date Time Temp Pulse Resp B/P Pulse Ox O2 Delivery O2 Flow Rate FiO2 10/04/16 08:00 98.4 101 16 131/77 97 10/04/16 07:58 75 10/04/16 04:00 97.6 74 18 139/79 97 10/04/16 00:00 97.1 71 17 147/82 96 10/03/16 20:00 96.5 72 17 144/74 97 10/03/16 15:44 95.6 72 15 142/79 97 I/O 10/03/16 10/03/16 10/03/16 10/04/16 10/04/16 10/04/16 07:00 15:00 23:00 07:00 15:00 23:00 Intake Total 360 ml 720 ml 480 ml 240 ml Output Total 255 ml 250 ml 175 ml 200 ml Balance 105 ml 470 ml 305 ml 40 ml Intake Oral 360 ml 720 ml 480 ml 240 ml Chest Tube Drainage Total 255 ml 250 ml 175 ml 200 ml # Voids 0 1 1 1 # Bowel Movements 0 1 0 0 Result Diagram: 10/02/16 0700 10/02/16 0700 Objective Remarks GENERAL: Well-developed asthenic in no distress SKIN: Warm and dry. HEAD: Atraumatic. Normocephalic. EYES: Pupils equal and round. No scleral icterus. No injection or drainage. ENT: No nasal bleeding or discharge. Mucous membranes pink and moist. NECK: Trachea midline. No JVD. CARDIOVASCULAR: Regular rate and rhythm. RESPIRATORY: No accessory muscle use. Slightly decreased breath sounds right lung. Chest tube in place GASTROINTESTINAL: Abdomen soft, non-tender, nondistended. MUSCULOSKELETAL: Extremities without clubbing, cyanosis, or edema. No obvious deformities. NEUROLOGICAL: Awake and alert. No obvious cranial nerve deficits. Motor grossly within normal limits. Five out of 5 muscle strength in the arms and legs. Normal speech. PSYCHIATRIC: Appropriate mood and affect; insight and judgment normal. Procedures 09/27/16-Left chest tube placement A/P Problem List: (1) UTI (urinary tract infection) ICD Code: N39.0 Status: Acute (2) ESRD (end stage renal disease) on dialysis ICD Code: N18.6 Status: Chronic (3) Hx of acute pancreatitis ICD Code: Z87.19 Status: Acute (4) Ascites due to alcoholic cirrhosis ICD Code: K70.31 Status: Acute (5) Pneumothorax ICD Code: J93.9 Status: Acute Assessment and Plan 56-year-old male, with PMH of diabetes, tobacco and alcohol abuse. Had an episode of syncope in late November 2015, evaluated at [facility], found to have necrotizing pancreatitis with liver failure that was secondary to alcohol-induced cirrhosis; hospitalization complicated by acute tubular necrosis, now hemodialysis dependent. Also had tracheostomy placed after a long ventilator support requirement. He has ongoing liver failure with ascites, metabolic encephalopathy and multiple procedures including multiple paracentesis for ascites, thoracentesis, IVC filter placement for DVT/PE and recent placement of an AV fistula of right arm for ESRD and ongoing hemodialysis. He was transferred from [facility] to the hospital on 09/26/16 for pneumothorax after thoracentesis for pleural effusion. Bilateral pleural effusions, left pneumothorax: s/p 2.4 L of thoracenteses 09/23, CXR reviewed, showed patchy bilateral consolidation and a large pneumothorax on the left, worsening. No leukocytosis, previous fluid analysis was transudative. No antibiotics. Continue chest tube drainage. Repeat CXR without pneumothorax. Still on 40 cm suction. Further management per pulmonary , will discontinue chest tube once output has significantly decreased, improving. Pulmonary plans to place pleur x catheter UTI: UA reviewed, positive leukocyte esterase, urine culture grew albicans, continue Diflucan renally dosed until 10/08/16. Repeat UA. IDDM: previously managed at home with Lantus insulin and prandial insulin SS. However had episodes of hypoglycemia, SSI for now. No long-acting insulin. HgbA1c 5.6 09/15. ESRD: on hemodialysis T--, consulted nephrology. Recent C Diff: positive test from [facility] 08/21/16 and was started on Vancomycin PO QID and completed 09/03/16. Continue Lactinex. Had loose stools again however repeat C.difficile 09/30 negative. 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 Unable to anticoagulate due to liver cirrhosis. Orthostatic hypotension: TEDs. Patient previously on Norvasc, metoprolol and lisinopril/quinapril but were stopped. Sacral wound-continue wound care. Chronic Pancreatitis - on Creon HTN -patient's BP actually well controlled. All antihypertensives were previously stopped. Liver cirrhosis, ascites, history of hepatic encephalopathy: continue with dialysis, ammonia wnl. US 09/13/2016 showed loculated fluid collections unable to perform paracentesis. Continued lactulose however patient has been refusing since admission on 09/26. Improving confusion which could be multifactorial from medication, hypoglycemia and end-stage renal disease. Limit narcotic use. History of respiratory failure, tracheostomy: monitor respiratory status, Neb treatments prn. Chronic pain: currently tolerating pain management Fall secondary to deconditioning: Fall precautions. Wound care with regards to abrasion and skin tear. Patient counseled. Continue physical therapy. Patient nonambulatory at baseline. DVT pharmacological prophylaxis contraindicated because of liver failure Full code Written by Sayra Bentley, acting as scribe for Dr. Zaragoza on 10/03/16 at 14:00. The documentation accurately reflects the work performed [id number] by me on at 1400 Discharge Planning Not ready for discharge. Pulmonary has to wean and discontinue chest tube Fede Zaragoza MD Oct 04, 2016 15:05
[2016-10-04] MEDS: FLUCONAZOLE 100 MG TAB PO SCH (18:24)
--- NOTE | 2016-10-04 20:05 | HHI.PR ---
Subjective Remarks Chest tube is draining Feels better ,and had dialysis. On o2 sat 97 on RA. Objective Vital Signs Date Time Temp Pulse Resp B/P Pulse Ox O2 Delivery O2 Flow Rate FiO2 10/04/16 16:00 95.8 72 16 128/78 97 10/04/16 14:25 95.9 76 16 110/71 96 10/04/16 08:00 98.4 101 16 131/77 97 10/04/16 07:58 75 10/04/16 04:00 97.6 74 18 139/79 97 10/04/16 00:00 97.1 71 17 147/82 96 I/O 10/03/16 10/03/16 10/03/16 10/04/16 10/04/16 10/04/16 07:00 15:00 23:00 07:00 15:00 23:00 Intake Total 360 ml 720 ml 480 ml 240 ml 240 ml Output Total 255 ml 250 ml 175 ml 200 ml 200 ml 2500 ml Balance 105 ml 470 ml 305 ml 40 ml 40 ml -2500 ml Intake Oral 360 ml 720 ml 480 ml 240 ml 240 ml Chest Tube Drainage Total 255 ml 250 ml 175 ml 200 ml 200 ml Hemodialysis 2500 ml # Voids 0 1 1 1 # Bowel Movements 0 1 0 0 2 Result Diagram: 10/02/16 0710/02/16 07 Objective Remarks This is a emaciated looking middle-aged white male who is pale . No distress HEENT: Head normocephalic. Pupils reactive, Tongue dry Ears, no inflammation. Neck: Supple with no venous distension while laying flat. Trachea midline. Chest: Equal movements with Few wheezes heard Heart: The heart sounds are irregular, S1-S2. No murmur. Abdomen: Reveals the liver to be 2 fingerbreadths below the costal margin. Bowel sounds are active. Extremities: Edema 1+ of the lower extremities. Decreased pulses. Reflexes are 1+. The patient does move his extremities well . No lesions observed. Assessment and Plan Assessment and Plan IMPRESSION 1. Cirrhosis with ascites and pleural effusion. 2. Large left pneumothorax status post thoracentesis. 3. History of encephalopathy. Plan : 1. Cont chest tube to drainage. 2. Could consider placing Pleur X catheter for usp Drainage 3. Duoneb nebs tid prn. 4. IS at bedside qid. 5. Up with help 6. Chest X ray in am 7. Labs in am Justina Johnston MD Oct 04, 2016 20:05
--- NOTE | 2016-10-04 20:58 | RADRPT ---
EXAM DATE/TIME: 10/04/2016 20:28 [place] COMPARISON: CHEST SINGLE AP, October 03, 2016, 8:05. INDICATIONS : Evaluate for edema. MEDICAL HISTORY : Renal disease, end stage. Diabetes mellitus type II. Cirrhosis. SURGICAL HISTORY : None. ENCOUNTER: Subsequent ACUITY: 1 month PAIN SCORE: 0/10 LOCATION: Bilateral chest FINDINGS: Improved aeration of both lungs. Consolidative opacities have decreased in prominence. Left jugular t ip overlies expected location of the right atrium. Remote left rib fractures. Left basilar chest tube is present. CONCLUSION: Improved aeration. Jeramie Hendrickson MD on October 04, 2016 at 20:55 Board Certified Radiologist. This report was verified electronically.
[2016-10-04] MEDS: DOCUSATE SODIUM 50 MG/SENNA 8.6 MG TAB PO SCH (21:00)
[2016-10-05 00:05] VITALS: BP 142/76; PULSE 75; RESP 16; TEMP 95.7; O2SAT 97
[2016-10-05 04:00] VITALS: BP 141/73; PULSE 72; RESP 16; TEMP 95.8; O2SAT 99
[2016-10-05] MEDS: LACTULOSE SYRUP 20 GM/30 ML CUP PO SCH (06:20)
[2016-10-05] MEDS: METOCLOPRAMIDE HCL 10 MG TAB PO SCH ×3 (06:21→17:00)
[2016-10-05] MEDS: INSULIN ASPART SUPPLEMENTAL SCALE SQ SCH ×4 (06:21→20:56)
[2016-10-05 06:22] LABS: HEMATOCRIT 28.7 % (39.0-51.0); MEAN CELL VOLUME 67.7 FL (80.0-100.0); MEAN CORPUSCULAR HEMOGLOBIN 20.9 PG (27.0-34.0); RED BLOOD COUNT 4.24 MIL/MM3 (4.50-5.90); RED CELL DISTRIBUTION WIDTH 21.7 % (11.6-17.2)
[2016-10-05 06:53] LABS: BICARBONATE 30.6 MEQ/L (21.0-32.0)
[2016-10-05] MEDS: LIPASE/PROTEASE/AMYLASE (6,000/19,000/30,000) CAP PO SCH ×3 (07:28→18:00)
[2016-10-05] MEDS: VITAMIN B CMPLX/VITC/FOLIC AC CAP PO SCH (07:28)
[2016-10-05] MEDS: ESCITALOPRAM OXALATE 10 MG TAB PO SCH (07:28)
[2016-10-05] MEDS: LACTOBACILLUS ACIDOPHILUS TAB PO SCH ×3 (07:28→18:00)
[2016-10-05] MEDS: PANTOPRAZOLE SOD 20 MG DELAYED RELEASE TAB PO SCH (07:28)
[2016-10-05] MEDS: NICOTINE 14 MG/24 HR PATCH TD SCH (07:29)
[2016-10-05 07:40] LABS: HEMO FLAGS AUTO DIFF
[2016-10-05 08:00] VITALS: BP 117/68; PULSE 76; RESP 16; TEMP 95.9; O2SAT 95
[2016-10-05] MEDS: REMOVE OLD NICODERM (NICOTINE) PATCH TD SCH (09:00)
[2016-10-05 09:17] LABS: EOSINOPHILS 4 % (0-4); NEUTROPHIL # MANUAL DIFF 5.3 TH/MM3 (1.8-7.7); POLYS (SEG NEUTROPHILS) 48 % (16-70); WBC DIFF SAMPLE 100
[2016-10-05 09:19] LABS: ACANTHOCYTES 1+ (NORMAL); PLATELET ESTIMATE SMEAR NORMAL (NORMAL); PLATELET MORPHOLOGY ENLARGED (NORMAL); SCAN/DIFF FINAL DIFF MANUAL; TARGET CELLS 2+ (NORMAL)
--- NOTE | 2016-10-05 11:25 | HHI.NPPN ---
Subjective General Problems: Anemia, Edema, Hypertension Renal Failure: Chronic, End Stage Renal Disease Interval History Dialyzed yesterday. Resting comfortably. Chest tube draining. (Annel Villavicencio) Review of Systems General Constitutional: Fatigue (Annel Villavicencio) Respiratory Lungs: SOB Respiratory Remarks improved (Annel Villavicencio) Objective Data Data 10/04/16 10/05/16 19:00 07:00 Intake Total 240 ml 480 ml Output Total 2700 ml 0 ml Balance -2460 ml 480 ml Intake Oral 240 ml 480 ml Output Urine Total 0 ml Chest Tube Drainage Total 200 ml Hemodialysis 2500 ml # Bowel Movements 2 0 Vital Signs Date Time Temp Pulse Resp B/P Pulse Ox O2 Delivery O2 Flow Rate FiO2 10/05/16 08:00 95.9 76 16 117/68 95 10/05/16 04:00 95.8 72 16 141/73 99 10/05/16 02:43 15 10/05/16 00:05 95.7 75 16 142/76 97 10/04/16 20:00 79 10/04/16 16:00 95.8 72 16 128/78 97 10/04/16 14:25 95.9 76 16 110/71 96 (Annel Villavicencio) -: 10/05/16 0526 10/05/16 0526 Imaging Last 72 hours Impressions Chest X-Ray 10/04/16 0000 Signed Impressions: Service Date/Time: Tuesday, October 04, 2016 20:28 - CONCLUSION: Improved aeration. Jeramie Hendrickson MD Chest X-Ray 10/03/16 0800 Signed Impressions: Service Date/Time: Monday, October 03, 2016 08:05 - CONCLUSION: Small bore chest tube in place without residual pneumothorax. Rajendra Sharma MD FACR Tubes & Lines Comment chest tube left side AVF right upper arm (Annel Villavicencio) Physical Exam General Appearance: No Acute Distress, Comfortable, Malnourished (Annel Villavicencio) Eyes Eye Exam: Pupils Equal (Annel Villavicencio) Throat Throat Exam: Oral Mucosa [place] & Moist (Annle Villavicencio) Neck Neck Exam: Neck Supple, Trachea Midline (Annel Villavicencio) Pulmonary Resp Exam: No Distress, Rhonchi, Decreased Bases, Diminished Breath Sounds Resp Remarks diminished on left (Annel Villavicencio) Cardiology CV Exam: Regular, Normal Sinus Rhythm (Annel Villavicencio) Gastrointestinal/Abdomen GI Exam: Soft, Non-Tender, Bowel Sounds Present (Annel Villavicencio) Musculoskeletal MS Exam: Joints Intact, Atrophy (Annel Villavicencio) Integumentary Skin Exam: Clear, Warm, Dry, Intact (Annel Villavicencio) Extremeties Extremities Exam: No Edema, Pedal Pulses Palpable Extremeties Remarks Right AVF, + thrill/bruit (Annel Villavicencio) Neurologic Neuro Exam: Alert, Awake, Oriented (Annel Villavicencio) Psychiatric Psych Exam: Appropriate Responses (Annel Villavicencio) Assessment/Plan Discussed Condition With: Patient Assessment Summary: Anemia of CKD, Malnutrition, Hypertension, End Stage Renal Disease Problem List: (1) ESRD (end stage renal disease) on dialysis Plan: Dialysis T-Th-Sat, had 2500 ml UF yesterday no electrolyte concerns continue current plan, orders reviewed renal panel in am continue Nephrocaps, he is not on phosphate binders (2) Pneumothorax Plan: chest tube in place on left pulmonary following, may have Pleur X catheter placed (3) Physical deconditioning Plan: may benefit from rehab also needs nutritional support (4) Anemia Plan: continue Epogen with dialysis. (5) Stage II pressure ulcer of buttock Plan: continue wound care pain control if needed (6) Hx of acute pancreatitis (7) Ascites due to alcoholic cirrhosis (Annel Villavicencio) Plan patient was seen and examined. No changes from renal standpoint. We will continue dialysis support. (Porfirio Harris MD) Annel Villavicencio Oct 05, 2016 11:25 Porfirio Harris MD Oct 06, 2016 08:17
[2016-10-05 12:00] VITALS: BP 135/76; PULSE 74; RESP 16; TEMP 95.9; O2SAT 97
--- NOTE | 2016-10-05 14:18 | HHI.PR ---
Subjective Remarks Follow-up for pneumothorax. The patient has no acute complaints today. Chest tube is draining. Denies any abdominal pain or shortness of breath. Objective Vitals Vital Signs Date Time Temp Pulse Resp B/P Pulse Ox O2 Delivery O2 Flow Rate FiO2 10/05/16 12:00 95.9 74 16 135/76 97 10/05/16 08:00 95.9 76 16 117/68 95 10/05/16 04:00 95.8 72 16 141/73 99 10/05/16 02:43 15 10/05/16 00:05 95.7 75 16 142/76 97 10/04/16 20:00 79 10/04/16 16:00 95.8 72 16 128/78 97 10/04/16 14:25 95.9 76 16 110/71 96 I/O 10/04/16 10/04/16 10/04/16 10/05/16 10/05/16 10/05/16 07:00 15:00 23:00 07:00 15:00 23:00 Intake Total 240 ml 240 ml 480 ml 330 ml Output Total 200 ml 200 ml 2500 ml Balance 40 ml 40 ml -2020 ml 330 ml Intake Oral 240 ml 240 ml 480 ml 330 ml Output Urine Total 0 ml Chest Tube Drainage Total 200 ml 200 ml Hemodialysis 2500 ml # Voids 1 1 # Bowel Movements 0 2 0 2 Result Diagram: 10/05/16 0526 10/05/16 0526 Imaging Last Impressions Chest X-Ray 10/04/16 0000 Signed Impressions: Service Date/Time: Tuesday, October 04, 2016 20:28 - CONCLUSION: Improved aeration. Jeramie Hendrickson MD Chest Tube Insertion 09/27/16 1452 Signed Impressions: Service Date/Time: Tuesday, September 27, 2016 15:20 - CONCLUSION: Uncomplicated chest tube placement as above. Pete Lugo MD Chest CT 09/27/16 0000 Signed Impressions: Service Date/Time: Tuesday, September 27, 2016 15:20 - CONCLUSION: 1. Large left hydropneumothorax. A left-sided chest tube will be placed. 2. Scattered parenchymal infiltrates throughout the right lung with a very small right effusion. Pete Lugo MD Objective Remarks GENERAL: Well-developed fair-nourished. In no acute distress. SKIN: Warm and dry. No lesions noted. HEENT: Normocephalic. Pupils equal and round. Mucous membranes pink and moist. CARDIOVASCULAR: Regular rate and rhythm. No murmur appreciated. RESPIRATORY: No accessory muscle use. Clear to auscultation. Slightly decreased breath sounds right lung. Chest tube in place. GASTROINTESTINAL: Abdomen soft, non-tender, nondistended. Bowel sounds x4. MUSCULOSKELETAL: No obvious deformities. No clubbing or cyanosis. No edema. NEUROLOGICAL: Awake and alert. No focal neurological deficits. Moves upper and lower extremities spontaneously. Normal speech. PSYCHIATRIC: Appropriate mood and affect; insight and judgment normal. Procedures 09/27/16-Left chest tube placement A/P Problem List: (1) UTI (urinary tract infection) ICD Code: N39.0 Status: Acute (2) ESRD (end stage renal disease) on dialysis ICD Code: N18.6 Status: Chronic (3) Hx of acute pancreatitis ICD Code: Z87.19 Status: Acute (4) Ascites due to alcoholic cirrhosis ICD Code: K70.31 Status: Acute (5) Pneumothorax ICD Code: J93.9 Status: Acute Assessment and Plan 56-year-old male, with PMH of diabetes, tobacco and alcohol abuse. Had an episode of syncope in late November 2015, evaluated at [facility], found to have necrotizing pancreatitis with liver failure that was secondary to alcohol-induced cirrhosis; hospitalization complicated by acute tubular necrosis, now hemodialysis dependent. Also had tracheostomy placed after a long ventilator support requirement. He has ongoing liver failure with ascites, metabolic encephalopathy and multiple procedures including multiple paracentesis for ascites, thoracentesis, IVC filter placement for DVT/PE and recent placement of an AV fistula of right arm for ESRD and ongoing hemodialysis. He was transferred from [facility] to the hospital on 09/26/16 for pneumothorax after thoracentesis for pleural effusion. Bilateral pleural effusions, left pneumothorax: s/p 2.4 L of thoracenteses 09/23, CXR reviewed, showed patchy bilateral consolidation and a large pneumothorax on the left, worsening. No leukocytosis, previous fluid analysis was transudative. No antibiotics. Continue chest tube drainage. Repeat CXR without pneumothorax. Still on suction. Further management per pulmonary, will discontinue chest tube once output has significantly decreased, improving. Pulmonary considering pleur x catheter placement. Repeat chest x-ray 10/05 with improving aeration. UTI: UA reviewed, positive leukocyte esterase, urine culture grew albicans, continue Diflucan renally dosed until 10/08/16. Repeat urine culture 10/01 with no growth. IDDM: previously managed at home with Lantus insulin and prandial insulin SS. However had episodes of hypoglycemia, SSI for now. No long-acting insulin. HgbA1c 5.6 09/15. ESRD: on hemodialysis -, nephrology on board. Recent C Diff: positive test from [facility] 08/21/16 and was started on Vancomycin PO QID and completed 09/03/16. Continue Lactinex. Had loose stools again however repeat C.difficile 09/30 negative. 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 Unable to anticoagulate due to liver cirrhosis. Orthostatic hypotension: TEDs. Patient previously on Norvasc, metoprolol and lisinopril/quinapril but were stopped. Sacral wound-continue wound care. Chronic Pancreatitis - on Creon HTN -patient's BP actually well controlled. All antihypertensives were previously stopped. Liver cirrhosis, ascites, history of hepatic encephalopathy: continue with dialysis, ammonia wnl. US 09/13/2016 showed loculated fluid collections unable to perform paracentesis. Continued lactulose however patient continually refuses. Improving confusion which could be multifactorial from medication, hypoglycemia and end-stage renal disease. Limit narcotic use. History of respiratory failure, tracheostomy: monitor respiratory status, Neb treatments prn. Chronic pain: currently tolerating pain management Fall secondary to deconditioning: Fall precautions. Wound care with regards to abrasion and skin tear. Continue physical therapy. Patient nonambulatory, wheelchair bound at baseline. DVT pharmacological prophylaxis contraindicated because of liver failure Full code Written by Bo Raymundo, acting as scribe for Dr. Zaragoza on 10/05/16 at 14:12. The documentation accurately reflects the work performed [id number] by me on at 1412 Discharge Planning Discharge planning when cleared by pulmonology Bo Raymundo Oct 05, 2016 14:18 Fede Zaragoza MD Oct 05, 2016 17:45
[2016-10-05] MEDS: FLUCONAZOLE 100 MG TAB PO SCH (15:00)
[2016-10-05 16:00] VITALS: BP 134/73; PULSE 73; RESP 16; TEMP 95.7; O2SAT 96
--- NOTE | 2016-10-05 18:02 | HHI.PR ---
Subjective Remarks Chest tube is draining >350 CC/Day. Feels better ,and had dialysis. taking more PO.On o2 sat 97 on RA. Objective Vital Signs Date Time Temp Pulse Resp B/P Pulse Ox O2 Delivery O2 Flow Rate FiO2 10/05/16 16:00 95.7 73 16 134/73 96 10/05/16 12:00 95.9 74 16 135/76 97 10/05/16 08:00 95.9 76 16 117/68 95 10/05/16 04:00 95.8 72 16 141/73 99 10/05/16 02:43 15 10/05/16 00:05 95.7 75 16 142/76 97 10/04/16 20:00 79 I/O 10/04/16 10/04/16 10/04/16 10/05/16 10/05/16 10/05/16 07:00 15:00 23:00 07:00 15:00 23:00 Intake Total 240 ml 240 ml 480 ml 330 ml Output Total 200 ml 200 ml 2500 ml Balance 40 ml 40 ml -2020 ml 330 ml Intake Oral 240 ml 240 ml 480 ml 330 ml Output Urine Total 0 ml Chest Tube Drainage Total 200 ml 200 ml Hemodialysis 2500 ml # Voids 1 1 # Bowel Movements 0 2 0 2 Result Diagram: 10/05/1652510/05/16525 Objective Remarks This is a emaciated looking middle-aged white male who is pale . No distress HEENT: Head normocephalic. Pupils reactive, Tongue dry Ears, no inflammation. Neck: Supple with no venous distension while laying flat. Trachea midline. Chest: Equal movements with Few basal crackles Heart: The heart sounds are irregular, S1-S2. No murmur. Abdomen: Reveals the liver to be 2 fingerbreadths below the costal margin. Bowel sounds are active. Extremities: Edema 1+ . Decreased pulses. Reflexes are 1+. The patient does move his extremities well . No lesions observed. Assessment and Plan Assessment and Plan IMPRESSION 1. Cirrhosis with ascites and pleural effusion. 2. Large left pneumothorax status post thoracentesis. 3. History of encephalopathy. Plan : 1. Cont chest tube to drainage. 2. Ask IR about placing Pleur X catheter for exterminator helper Drainage 3. Duoneb nebs tid prn. 4. IS at bedside qid. 5. Up with help 6. PT Evaluation. 7. Labs in am Justina Johnston MD Oct 05, 2016 18:02
[2016-10-05 20:00] VITALS: BP 115/68; PULSE 77; RESP 16; TEMP 97.6; O2SAT 97
[2016-10-05] MEDS: DOCUSATE SODIUM 50 MG/SENNA 8.6 MG TAB PO SCH (20:55)
[2016-10-05] MEDS: BACITRACIN TOP OINT 15 GM TUBE TOP SCH (21:00)
[2016-10-06] VITALS: BP 133/77; PULSE 80; RESP 16; TEMP 97.6; O2SAT 96
[2016-10-06 04:10] VITALS: BP 147/83; PULSE 86; RESP 16; TEMP 98.2; O2SAT 97
[2016-10-06] MEDS: INSULIN ASPART SUPPLEMENTAL SCALE SQ SCH ×4 (06:00→21:15)
[2016-10-06 06:08] LABS: BICARBONATE 28.8 MEQ/L (21.0-32.0); POTASSIUM 3.8 MEQ/L (3.5-5.1)
[2016-10-06] MEDS: LACTULOSE SYRUP 20 GM/30 ML CUP PO SCH ×2 (06:38→14:25)
[2016-10-06 07:10] VITALS: BP 111/68; PULSE 76; RESP 20; TEMP 95.6; O2SAT 97
[2016-10-06] MEDS: METOCLOPRAMIDE HCL 10 MG TAB PO SCH ×3 (07:26→14:14)
[2016-10-06] MEDS: LIPASE/PROTEASE/AMYLASE (6,000/19,000/30,000) CAP PO SCH ×3 (07:26→15:42)
[2016-10-06] MEDS: LACTOBACILLUS ACIDOPHILUS TAB PO SCH ×3 (07:27→15:42)
[2016-10-06] MEDS: NICOTINE 14 MG/24 HR PATCH TD SCH (07:30)
[2016-10-06] MEDS: VITAMIN B CMPLX/VITC/FOLIC AC CAP PO SCH (07:30)
[2016-10-06] MEDS: SODIUM CHLORIDE 0.9% FLUSH 5 ML FLUSH IVF PRN (07:30)
[2016-10-06] MEDS: ESCITALOPRAM OXALATE 10 MG TAB PO SCH (07:30)
[2016-10-06] MEDS: PANTOPRAZOLE SOD 20 MG DELAYED RELEASE TAB PO SCH (07:30)
[2016-10-06] MEDS: REMOVE OLD NICODERM (NICOTINE) PATCH TD SCH (07:30)
[2016-10-06] MEDS: BACITRACIN TOP OINT 15 GM TUBE TOP SCH ×2 (07:46→21:00)
[2016-10-06 07:47] VITALS: PULSE 71
--- NOTE | 2016-10-06 08:47 | HHI.PR ---
Subjective Remarks Follow up for pneumothorax. This AM, chest tube came out and fluid was draining from the insertion site. RN sealed it with dressing. Went to evaluate patient. Patient is hemodynamically stable. Denies any acute concerns. Denies any nausea , vomiting, fever, chills. Objective Vitals Vital Signs Date Time Temp Pulse Resp B/P Pulse Ox O2 Delivery O2 Flow Rate FiO2 10/06/16 07:47 71 10/06/16 04:10 98.2 86 16 147/83 97 10/06/16 00:00 97.6 80 16 133/77 96 10/05/16 20:00 97.6 77 16 115/68 97 10/05/16 16:00 95.7 73 16 134/73 96 10/05/16 12:00 95.9 74 16 135/76 97 I/O 10/05/16 10/05/16 10/05/16 10/06/16 10/06/16 10/06/16 07:00 15:00 23:00 07:00 15:00 23:00 Intake Total 450 ml 360 ml 240 ml Output Total 70 ml 200 ml Balance 380 ml 360 ml 40 ml Intake Oral 450 ml 360 ml 240 ml Output Urine Total 0 ml 200 ml Chest Tube Drainage Total 70 ml # Voids 1 1 1 # Bowel Movements 2 0 Result Diagram: 10/05/16 0526 10/06/16 0507 Imaging Last Impressions Chest X-Ray 10/06/16 0000 Signed Impressions: Service Date/Time: September 15:47 - CONCLUSION: 1. Status post removal of left basilar chest tube. A tiny probable left basilar pneumothorax is noted. 2. Stable bilateral pleural effusions. 3. Stable right perihilar consolidation. Beau Recinos MD Chest Tube Insertion 09/27/16 1452 Signed Impressions: Service Date/Time: Tuesday, September 27, 2016 15:20 - CONCLUSION: Uncomplicated chest tube placement as above. Pete Lugo MD Chest CT 09/27/16 0000 Signed Impressions: Service Date/Time: Tuesday, September 27, 2016 15:20 - CONCLUSION: 1. Large left hydropneumothorax. A left-sided chest tube will be placed. 2. Scattered parenchymal infiltrates throughout the right lung with a very small right effusion. Pete Lugo MD Objective Remarks GENERAL: Alert, NAD. SKIN: Warm and dry. HEAD: Normocephalic. EYES: No scleral icterus. No injection or drainage. NECK: Supple, trachea midline. No JVD or lymphadenopathy. CARDIOVASCULAR: Regular rate and rhythm without murmurs, gallops, or rubs. Chest tube insertion site on the left covered with dressing. RESPIRATORY: Breath sounds equal bilaterally. No accessory muscle use. GASTROINTESTINAL: Abdomen soft, non-tender, nondistended. MUSCULOSKELETAL: No cyanosis, or edema. BACK: Nontender without obvious deformity. No CVA tenderness. Procedures 09/27/16-Left chest tube placement A/P Problem List: (1) UTI (urinary tract infection) ICD Code: N39.0 Status: Acute (2) ESRD (end stage renal disease) on dialysis ICD Code: N18.6 Status: Chronic (3) Hx of acute pancreatitis ICD Code: Z87.19 Status: Acute (4) Ascites due to alcoholic cirrhosis ICD Code: K70.31 Status: Acute (5) Pneumothorax ICD Code: J93.9 Status: Acute Assessment and Plan 56-year-old male, with PMH of diabetes, tobacco and alcohol abuse. Had an episode of syncope in late November 2015, evaluated at [facility], found to have necrotizing pancreatitis with liver failure that was secondary to alcohol-induced cirrhosis; hospitalization complicated by acute tubular necrosis, now hemodialysis dependent. Also had tracheostomy placed after a long ventilator support requirement. He has ongoing liver failure with ascites, metabolic encephalopathy and multiple procedures including multiple paracentesis for ascites, thoracentesis, IVC filter placement for DVT/PE and recent placement of an AV fistula of right arm for ESRD and ongoing hemodialysis. He was transferred from [facility] to the hospital on 09/26/16 for pneumothorax after thoracentesis for pleural effusion. Bilateral pleural effusions, left pneumothorax: s/p 2.4 L of thoracenteses 09/23, CXR reviewed, showed patchy bilateral consolidation and a large pneumothorax on the left, worsening. No leukocytosis, previous fluid analysis was transudative. No antibiotics. Continue chest tube drainage. Repeat CXR without pneumothorax. Still on suction. Further management per pulmonary, will discontinue chest tube once output has significantly decreased, improving. Pulmonary considering pleur x catheter placement. Repeat chest x-ray 10/05 with improving aeration. - Pleurox catheter placement planned for tomorrow 10/07/2016 by IR. UTI: UA reviewed, positive leukocyte esterase, urine culture grew albicans, continue Diflucan renally dosed until 10/08/16. Repeat urine culture 10/01 with no growth. IDDM: previously managed at home with Lantus insulin and prandial insulin SS. However had episodes of hypoglycemia, SSI for now. No long-acting insulin. HgbA1c 5.6 09/15. ESRD: on hemodialysis , nephrology on board. Recent C Diff: positive test from [facility] 08/21/16 and was started on Vancomycin PO QID and completed 09/03/16. Continue Lactinex. Had loose stools again however repeat C.difficile 09/30 negative. 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 Unable to anticoagulate due to liver cirrhosis. Orthostatic hypotension: TEDs. Patient previously on Norvasc, metoprolol and lisinopril/quinapril but were stopped. Sacral wound-continue wound care. Chronic Pancreatitis - on Creon HTN -patient's BP actually well controlled. All antihypertensives were previously stopped. Liver cirrhosis, ascites, history of hepatic encephalopathy: continue with dialysis, ammonia wnl. US 09/13/2016 showed loculated fluid collections unable to perform paracentesis. Continued lactulose however patient continually refuses. Improving confusion which could be multifactorial from medication, hypoglycemia and end-stage renal disease. Limit narcotic use. History of respiratory failure, tracheostomy: monitor respiratory status, Neb treatments prn. Chronic pain: currently tolerating pain management Fall secondary to deconditioning: Fall precautions. Wound care with regards to abrasion and skin tear. Continue physical therapy. Patient nonambulatory, wheelchair bound at baseline. Full code. SCDs. Pauline Barrera DO Oct 06, 2016 08:47
--- NOTE | 2016-10-06 11:54 | HHI.NPPN ---
Subjective General Problems: Anemia, Edema, Hypertension Renal Failure: Chronic, End Stage Renal Disease Interval History Having chest tube changed. He is due for dialysis. (Annel Villavicencio) Review of Systems General Constitutional: Fatigue (Annel Villavicencio) Respiratory Lungs: SOB Respiratory Remarks improved (Annel Villavicencio) Objective Data Data 10/05/16 10/06/16 19:00 07:00 Intake Total 450 ml 600 ml Output Total 70 ml 200 ml Balance 380 ml 400 ml Intake Oral 450 ml 600 ml Output Urine Total 0 ml 200 ml Chest Tube Drainage Total 70 ml # Voids 1 2 # Bowel Movements 2 0 Vital Signs Date Time Temp Pulse Resp B/P Pulse Ox O2 Delivery O2 Flow Rate FiO2 10/06/16 07:47 71 10/06/16 07:10 95.6 76 20 111/68 97 10/06/16 04:10 98.2 86 16 147/83 97 10/06/16 00:00 97.6 80 16 133/77 96 10/05/16 20:00 97.6 77 16 115/68 97 10/05/16 16:00 95.7 73 16 134/73 96 10/05/16 12:00 95.9 74 16 135/76 97 (Annel Villavicencio) -: 10/05/16 0526 10/06/16 0507 Tubes & Lines Comment chest tube left side AVF right upper arm (Annel Villavicencio) Physical Exam General Appearance: No Acute Distress, Comfortable, Malnourished (Annel Villavicencio) Eyes Eye Exam: Pupils Equal (Annel Villavicencio) Throat Throat Exam: Oral Mucosa [place] & Moist (Annel Villavicencio) Neck Neck Exam: Neck Supple, Trachea Midline (Annel Villavicencio) Pulmonary Resp Exam: No Distress, Rhonchi, Decreased Bases, Diminished Breath Sounds Resp Remarks diminished on left (Annel Villavicencio) Cardiology CV Exam: Regular, Normal Sinus Rhythm (Annel Villavicencio) Gastrointestinal/Abdomen GI Exam: Soft, Non-Tender, Bowel Sounds Present (Annel Villavicencio) Musculoskeletal MS Exam: Joints Intact, Atrophy (Annel Villavicencio) Integumentary Skin Exam: Clear, Warm, Dry, Intact (Annel Villavicencio) Extremeties Extremities Exam: No Edema, Pedal Pulses Palpable Extremeties Remarks Right AVF, + thrill/bruit (Annel Villavicencio) Neurologic Neuro Exam: Alert, Awake, Oriented (Annel Villavicencio) Psychiatric Psych Exam: Appropriate Responses (Annel Villavicencio) Assessment/Plan Discussed Condition With: Patient Assessment Summary: Anemia of CKD, Malnutrition, Hypertension, End Stage Renal Disease Problem List: (1) ESRD (end stage renal disease) on dialysis Plan: Dialysis T-Th-Mon, he is due today no electrolyte concerns continue current plan, orders reviewed renal panel in am continue Nephrocaps, he is not on phosphate binders( phos low-normal) (2) Pneumothorax Plan: chest tube exchanged for Pleur X catheter today pulmonary following (3) Physical deconditioning Plan: may benefit from rehab also needs nutritional support (4) Anemia Plan: continue Epogen with dialysis. (5) Stage II pressure ulcer of buttock Plan: continue wound care pain control if needed (6) Hx of acute pancreatitis (7) Ascites due to alcoholic cirrhosis (Annel Villavicencio) Plan patient was seen and examined. Needs nutritional support. Continue dialysis support. group home prognosis is guarded. (Porfirio Harris MD) Annel Villavicencio Oct 06, 2016 11:54 Porfirio Harris MD Oct 06, 2016 20:34
[2016-10-06] MEDS ORDERED: ceFAZolin 2 GM PREMIX 50 ML IV SCH (12:30)
[2016-10-06] MEDS: GENTAMICIN SULFATE (DIALYSIS USE ONLY) 20 MG/2 ML VIAL IV PRN (13:23)
[2016-10-06] MEDS: EPOETIN ALFA 10,000 UNITS/ML VIAL IV PRN (13:23)
[2016-10-06] MEDS: HEPARIN SODIUM - IV 10,000 UNITS/10 ML VIAL PRN (13:23)
[2016-10-06 14:49] LABS: APTT (PATIENT) 35.5 SEC (24.3-30.1); INTERNATIONAL NORMALIZED RATIO 1.2 RATIO; PROTHROMBIN TIME - PATIENT 13.8 SEC (9.8-11.6)
[2016-10-06] MEDS: FLUCONAZOLE 100 MG TAB PO SCH (15:42)
[2016-10-06 15:48] VITALS: BP 121/70; PULSE 83; RESP 20; TEMP 95.6; O2SAT 97
--- NOTE | 2016-10-06 16:24 | RADRPT ---
EXAM DATE/TIME: 10/06/2016 15:47 [place] COMPARISON: CT THORAX W/O CONTRAST, September 27, 2016, 15:20. CHEST SINGLE AP, October 04, 2016, 20:28. INDICATIONS : Pneumothorax MEDICAL HISTORY : Renal disease, end stage. Cirrhosis. SURGICAL HISTORY : Chest tube. ENCOUNTER: Subsequent ACUITY: 1 week PAIN SCORE: 6/10 LOCATION: Chest FINDINGS: The small left basilar chest tube has been removed. There is a questionable small left basilar pneum othorax. Loculated pleural fluid is noted on the left and is stable. A small right pleural effusion is stable. Patchy opacity is noted within the right perihilar region and is unchanged. A left inter nal jugular tunneled catheter has its tip in the right atrium. CONCLUSION: 1. Status post removal of left basilar chest tube. A tiny probable left basilar pneumothorax is noted . 2. Stable bilateral pleural effusions. 3. Stable right perihilar consolidation. Beau Recinos MD on October 06, 2016 at 16:12 Board Certified Radiologist. This report was verified electronically.
--- NOTE | 2016-10-06 19:08 | HHI.PR ---
Subjective Remarks Chest tube fell out. Feels better ,and had dialysis. Will go for a Pleur X catheter in am. On o2 sat 97 on RA. Objective Vital Signs Date Time Temp Pulse Resp B/P Pulse Ox O2 Delivery O2 Flow Rate FiO2 10/06/16 15:48 95.6 83 20 121/70 97 10/06/16 07:47 71 10/06/16 07:10 95.6 76 20 111/68 97 10/06/16 04:10 98.2 86 16 147/83 97 10/06/16 00:00 97.6 80 16 133/77 96 10/05/16 20:00 97.6 77 16 115/68 97 I/O 10/05/16 10/05/16 10/05/16 10/06/16 10/06/16 10/06/16 07:00 15:00 23:00 07:00 15:00 23:00 Intake Total 450 ml 360 ml 240 ml 240 ml Output Total 70 ml 200 ml 2000 ml Balance 380 ml 360 ml 40 ml -1760 ml Intake Oral 450 ml 360 ml 240 ml 240 ml Output Urine Total 0 ml 200 ml Chest Tube Drainage Total 70 ml Hemodialysis 2000 ml # Voids 1 1 1 0 # Bowel Movements 2 0 2 Result Diagram: 10/05/16 0526 10/06/16 0507 Objective Remarks This is a emaciated looking middle-aged white male who is pale . No distress HEENT: Head normocephalic. Pupils reactive, Tongue dry Ears, no inflammation. Neck: Supple with no venous distension while laying flat. Trachea midline. Chest: Equal movements with Few wheezes. Heart: The heart sounds are irregular, S1-S2. No murmur. Abdomen: Reveals the liver to be 2 fingerbreadths below the costal margin. Bowel sounds are active. Extremities: Edema 1+ . Decreased pulses. Reflexes are 1+. The patient does move his extremities well . No lesions observed. Assessment and Plan Assessment and Plan IMPRESSION 1. Cirrhosis with ascites and pleural effusion. 2. Large left pneumothorax status post thoracentesis. 3. History of encephalopathy. Plan : 1. For CXR in am 2. Ask IR about placing Pleur X catheter for buttermaker helper Drainage 3. Duoneb nebs tid prn. 4. IS at bedside qid. 5. Up with help 6. PT Evaluation. 7.PT PTT ,CBC in am D'Daniel,V. Jluis MD Oct 06, 2016 19:08
[2016-10-06 20:00] VITALS: BP 139/77; PULSE 77; RESP 16; TEMP 96.2; O2SAT 97
[2016-10-06] MEDS: DOCUSATE SODIUM 50 MG/SENNA 8.6 MG TAB PO SCH (21:00)
[2016-10-07] VITALS (7 sets, daily range): BP systolic 119–139; BP diastolic 68–79; PULSE 70–85; RESP 10–18; TEMP 95.8–98.6; O2SAT 95–99
[2016-10-07] MEDS: LACTULOSE SYRUP 20 GM/30 ML CUP PO SCH ×2 (05:01→15:16)
[2016-10-07] MEDS: INSULIN ASPART SUPPLEMENTAL SCALE SQ SCH ×4 (05:38→20:12)
[2016-10-07] MEDS: METOCLOPRAMIDE HCL 10 MG TAB PO SCH ×3 (08:00→15:16)
[2016-10-07] MEDS: LACTOBACILLUS ACIDOPHILUS TAB PO SCH ×3 (09:00→15:15)
[2016-10-07] MEDS: LIPASE/PROTEASE/AMYLASE (6,000/19,000/30,000) CAP PO SCH ×3 (09:00→15:16)
[2016-10-07] MEDS: REMOVE OLD NICODERM (NICOTINE) PATCH TD SCH (09:00)
[2016-10-07] MEDS: BACITRACIN TOP OINT 15 GM TUBE TOP SCH ×2 (09:00→20:03)
[2016-10-07] MEDS: VITAMIN B CMPLX/VITC/FOLIC AC CAP PO SCH (09:22)
[2016-10-07] MEDS: SODIUM CHLORIDE 0.9% FLUSH 5 ML FLUSH IVF PRN (09:22)
[2016-10-07] MEDS: ESCITALOPRAM OXALATE 10 MG TAB PO SCH (09:22)
[2016-10-07] MEDS: PANTOPRAZOLE SOD 20 MG DELAYED RELEASE TAB PO SCH (09:22)
[2016-10-07] MEDS: NICOTINE 14 MG/24 HR PATCH TD SCH (09:22)
--- NOTE | 2016-10-07 12:20 | HHI.NPPN ---
Subjective General Problems: Anemia, Edema, Hypertension Renal Failure: Chronic, End Stage Renal Disease Interval History Chest tube inadvertently dislodged. He is to have it replaced. at bedside, no acute concerns. (Annel Villavicencio) Review of Systems General Constitutional: Fatigue (Annel Villavicencio) Respiratory Lungs: SOB Respiratory Remarks improved (Annel Villavicencio) Objective Data Data 10/06/16 10/07/16 19:00 07:00 Intake Total 240 ml 720 ml Output Total 2000 ml 0 ml Balance -1760 ml 720 ml Intake Oral 240 ml 720 ml Output Urine Total 0 ml Hemodialysis 2000 ml # Voids 0 0 # Bowel Movements 2 4 Vital Signs Date Time Temp Pulse Resp B/P Pulse Ox O2 Delivery O2 Flow Rate FiO2 10/07/16 09:16 76 10/07/16 08:00 95.8 74 16 132/76 97 10/07/16 04:00 96.7 80 16 139/79 96 10/07/16 00:00 96.6 78 16 138/76 96 10/06/16 20:00 96.2 77 16 139/77 97 10/06/16 15:48 95.6 83 20 121/70 97 (Annel Villavicencio) -: 10/05/16 0526 10/06/16 0507 Imaging Last 72 hours Impressions Chest X-Ray 10/06/16 0000 Signed Impressions: Service Date/Time: September 15:47 - CONCLUSION: 1. Status post removal of left basilar chest tube. A tiny probable left basilar pneumothorax is noted. 2. Stable bilateral pleural effusions. 3. Stable right perihilar consolidation. Beau Recinos MD Tubes & Lines Comment AVF right upper arm (Annel Villavicencio) Physical Exam General Appearance: No Acute Distress, Comfortable, Sleeping, Malnourished (Annel Villavicencio) Eyes Eye Exam: Pupils Equal (Annel Villavicencio) Throat Throat Exam: Oral Mucosa [place] & Moist (Annel Villavicencio) Neck Neck Exam: Neck Supple, Trachea Midline (Annel Villavicencio) Pulmonary Resp Exam: No Distress, Rhonchi, Decreased Bases, Diminished Breath Sounds Resp Remarks diminished on left (Annel Villavicencio) Cardiology CV Exam: Regular, Normal Sinus Rhythm (Annel Villavicencio) Gastrointestinal/Abdomen GI Exam: Soft, Non-Tender, Bowel Sounds Present (Annel Villavicencio) Musculoskeletal MS Exam: Joints Intact, Atrophy (Annel Villavicencio) Integumentary Skin Exam: Clear, Warm, Dry, Intact (Annel Villavicencio) Extremeties Extremities Exam: No Edema, Pedal Pulses Palpable Extremeties Remarks Right AVF, + thrill/bruit (Annel Villavicencio) Neurologic Neuro Exam: Alert, Awake, Oriented (Annel Villavicencio) Psychiatric Psych Exam: Appropriate Responses (Annel Villavicencio) Assessment/Plan Discussed Condition With: Patient Assessment Summary: Anemia of CKD, Malnutrition, Hypertension, End Stage Renal Disease Problem List: (1) ESRD (end stage renal disease) on dialysis Plan: Dialysis T--Mon, he had 2 liter UF yesterday no acute electrolyte concerns continue current plan, orders reviewed renal panel in am continue Nephrocaps, he is not on phosphate binders( phos low-normal), recheck in am he has outpatient HD arrangements at [facility] per the (2) Pneumothorax Plan: Pleur X catheter to be replaced pulmonary following (3) Physical deconditioning Plan: may benefit from rehab also needs nutritional support (4) Anemia Plan: continue Epogen with dialysis. (5) Stage II pressure ulcer of buttock Plan: continue wound care pain control if needed (6) Hx of acute pancreatitis (7) Ascites due to alcoholic cirrhosis (Annel Villavicencio) Plan patient was seen and examined. Radiology note reviewed, very small amount of pleural fluid found, no chest tube or catheter. Dialysis tomorrow. (Porfirio Harris MD) Annel Villavicencio Oct 07, 2016 12:20 Porfirio Harris MD Oct 07, 2016 16:29
--- NOTE | 2016-10-07 12:55 | RADRPT ---
EXAM DATE/TIME: 10/07/2016 11:44 [place] COMPARISON : No previous studies available for comparison. INDICATIONS : Patient for Aspira cath.Chest tube had fallen out. Pt does not have enough fluid collection. The patient presented for implantable pleural drainage catheter insertion for recurrent left pleural effusion. Preliminary ultrasound reveals a fairly small quantity of left pleural fluid that present, felt insufficient to optimally allow safe placement of the catheter. I think we should plan on having the patient return as an outpatient when he begins to redevelop symp toms. I have given his our contact numbers so that she can schedule expeditiously at that time. This plan was discussed with Dr. Wright who concurs. Jluis Cabral MD on October 07, 2016 at 12:48 Board Certified Radiologist. This report was verified electronically.
--- NOTE | 2016-10-07 14:02 | HHI.FF ---
Face to Face Verification Diagnosis: (1) Pneumothorax (2) Ascites due to alcoholic cirrhosis (3) ESRD (end stage renal disease) on dialysis Physical Therapy Order: Evaluate and Treat, Improve ambulation, Strength and gait training Home Health Nursing Order: Medical education Signs/symptoms of disease process Oxygen administration education Wound care and dressing changes Nursing assessment with vital signs Home Health Aide Order: To Assist In: Bathing and personal care, brand advisor and meal prep I have seen patient Emanuel Alvarado on 10/07/16. My clinical findings support the need for the requested home health care services because: Ltd mobility - disease progression Patient has SOB Deconditioned w/ increased weakness Limited ability to care for self Need for psychosocial assistance Impaired cognition/judgement High risk of falls Infection w/ risk of complications I certify that my clinical findings support that this patient is homebound because: Impaired cognitive ability/safety Hx COPD- exertion dyspnea/weakness Unsteady gait/balance Unsafe to leave home unassisted Need for psychosocial assistance Unable to use public transportation Pauline Barrera DO Oct 07, 2016 14:02
[2016-10-07] MEDS: FLUCONAZOLE 100 MG TAB PO SCH (15:15)
--- NOTE | 2016-10-07 15:43 | HHI.PR ---
Subjective Remarks Follow up for pneumothorax. Patient went to IR but did not undergo pleurox cath placement. Apparently, there was not much fluid there. Patient is currently doing well, eating crackers in bed. at bedside wants to take him home. They are expecting a hospital bed, mattress to be delivered on Monday. thinks they will be fine for two days. However, patient wants to wait until hospital bed is set up at home. Objective Vitals Vital Signs Date Time Temp Pulse Resp B/P Pulse Ox O2 Delivery O2 Flow Rate FiO2 10/07/16 15:19 96.6 70 13 134/72 96 10/07/16 11:30 96.1 70 10 138/73 99 10/07/16 09:16 76 10/07/16 08:00 95.8 74 16 132/76 97 10/07/16 04:00 96.7 80 16 139/79 96 10/07/16 00:00 96.6 78 16 138/76 96 10/06/16 20:00 96.2 77 16 139/77 97 10/06/16 15:48 95.6 83 20 121/70 97 I/O 10/06/16 10/06/16 10/06/16 10/07/16 10/07/16 10/07/16 06:59 14:59 22:59 06:59 14:59 22:59 Intake Total 240 ml 960 ml 0 ml Output Total 200 ml 2000 ml 0 ml Balance 40 ml -2000 ml 960 ml 0 ml Intake Oral 240 ml 960 ml 0 ml Output Urine Total 200 ml 0 ml Hemodialysis 2000 ml # Voids 1 0 0 0 # Bowel Movements 6 0 0 Result Diagram: 10/05/16 0526 10/06/16 0507 Imaging Last Impressions Chest X-Ray 10/06/16 0000 Signed Impressions: Service Date/Time: September 15:47 - CONCLUSION: 1. Status post removal of left basilar chest tube. A tiny probable left basilar pneumothorax is noted. 2. Stable bilateral pleural effusions. 3. Stable right perihilar consolidation. Beau Recinos MD Chest Tube Insertion 09/27/16 1452 Signed Impressions: Service Date/Time: Tuesday, September 27, 2016 15:20 - CONCLUSION: Uncomplicated chest tube placement as above. Pete Lugo MD Chest CT 09/27/16 0000 Signed Impressions: Service Date/Time: Tuesday, September 27, 2016 15:20 - CONCLUSION: 1. Large left hydropneumothorax. A left-sided chest tube will be placed. 2. Scattered parenchymal infiltrates throughout the right lung with a very small right effusion. Pete Lugo MD Objective Remarks GENERAL: Alert, NAD. SKIN: Warm and dry. HEAD: Normocephalic. EYES: No scleral icterus. No injection or drainage. NECK: Supple, trachea midline. No JVD or lymphadenopathy. CARDIOVASCULAR: Regular rate and rhythm without murmurs, gallops, or rubs. Chest tube insertion site on the left covered with dressing. RESPIRATORY: Breath sounds equal bilaterally. No accessory muscle use. GASTROINTESTINAL: Abdomen soft, non-tender, nondistended. MUSCULOSKELETAL: No cyanosis, or edema. BACK: Nontender without obvious deformity. No CVA tenderness. Procedures 09/27/16-Left chest tube placement A/P Problem List: (1) UTI (urinary tract infection) ICD Code: N39.0 Status: Acute (2) ESRD (end stage renal disease) on dialysis ICD Code: N18.6 Status: Chronic (3) Hx of acute pancreatitis ICD Code: Z87.19 Status: Acute (4) Ascites due to alcoholic cirrhosis ICD Code: K70.31 Status: Acute (5) Pneumothorax ICD Code: J93.9 Status: Acute Assessment and Plan 56-year-old male, with PMH of diabetes, tobacco and alcohol abuse. Had an episode of syncope in late November 2015, evaluated at [facility], found to have necrotizing pancreatitis with liver failure that was secondary to alcohol-induced cirrhosis; hospitalization complicated by acute tubular necrosis, now hemodialysis dependent. Also had tracheostomy placed after a long ventilator support requirement. He has ongoing liver failure with ascites, metabolic encephalopathy and multiple procedures including multiple paracentesis for ascites, thoracentesis, IVC filter placement for DVT/PE and recent placement of an AV fistula of right arm for ESRD and ongoing hemodialysis. He was transferred from [facility] to the hospital on 09/26/16 for pneumothorax after thoracentesis for pleural effusion. Bilateral pleural effusions, left pneumothorax: s/p 2.4 L of thoracenteses 09/23, CXR reviewed, showed patchy bilateral consolidation and a large pneumothorax on the left, worsening. No leukocytosis, previous fluid analysis was transudative. No antibiotics. Continue chest tube drainage. Repeat CXR without pneumothorax. Still on suction. Further management per pulmonary, will discontinue chest tube once output has significantly decreased, improving. Pulmonary considering pleur x catheter placement. Repeat chest x-ray 10/05 with improving aeration. - Pleurox catheter placement planned for 10/07/2016 by IR - however, it was not due to low amount of fluid. - If fluid accumulates, patient will need to come back to IR as outpatient. - Patient is waiting for hospital bed/mattress to be delivered at his house on 10/10/2016. - Likely discharge home on 10/10/2016. UTI: UA reviewed, positive leukocyte esterase, urine culture grew albicans, continue Diflucan renally dosed until 10/08/16. Repeat urine culture 10/01 with no growth. IDDM: previously managed at home with Lantus insulin and prandial insulin SS. However had episodes of hypoglycemia, SSI for now. No long-acting insulin. HgbA1c 5.6 09/15. ESRD: on hemodialysis T--, nephrology on board. Recent C Diff: positive test from [facility] 08/21/16 and was started on Vancomycin PO QID and completed 09/03/16. Continue Lactinex. Had loose stools again however repeat C.difficile 09/30 negative. 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 Unable to anticoagulate due to liver cirrhosis. Orthostatic hypotension: TEDs. Patient previously on Norvasc, metoprolol and lisinopril/quinapril but were stopped. Sacral wound-continue wound care. Chronic Pancreatitis - on Creon HTN -patient's BP actually well controlled. All antihypertensives were previously stopped. Liver cirrhosis, ascites, history of hepatic encephalopathy: continue with dialysis, ammonia wnl. US 09/13/2016 showed loculated fluid collections unable to perform paracentesis. Continued lactulose however patient continually refuses. Improving confusion which could be multifactorial from medication, hypoglycemia and end-stage renal disease. Limit narcotic use. History of respiratory failure, tracheostomy: monitor respiratory status, Neb treatments prn. Chronic pain: currently tolerating pain management Fall secondary to deconditioning: Fall precautions. Wound care with regards to abrasion and skin tear. Continue physical therapy. Patient nonambulatory, wheelchair bound at baseline. Full code. SCDs. Pauline Barrera DO Oct 07, 2016 3:43 pm
--- NOTE | 2016-10-07 19:56 | HHI.PR ---
Subjective Remarks Chest tube out. Feels better ,and had dialysis. Will not get a Chest catheter due to little fluid now. On o2 sat 97 on RA. Objective Vital Signs Date Time Temp Pulse Resp B/P Pulse Ox O2 Delivery O2 Flow Rate FiO2 10/07/16 15:19 96.6 70 13 134/72 96 10/07/16 11:30 96.1 70 10 138/73 99 10/07/16 09:16 76 10/07/16 08:00 95.8 74 16 132/76 97 10/07/16 04:00 96.7 80 16 139/79 96 10/07/16 00:00 96.6 78 16 138/76 96 10/06/16 20:00 96.2 77 16 139/77 97 I/O 10/06/16 10/06/16 10/06/16 10/07/16 10/07/16 10/07/16 07:00 15:00 23:00 07:00 15:00 23:00 Intake Total 240 ml 240 ml 720 ml 0 ml Output Total 200 ml 2000 ml 0 ml Balance 40 ml -1760 ml 720 ml 0 ml Intake Oral 240 ml 240 ml 720 ml 0 ml Output Urine Total 200 ml 0 ml Hemodialysis 2000 ml # Voids 1 0 0 0 # Bowel Movements 2 4 0 0 Result Diagram: 10/05/16 0526 10/06/16 0507 Objective Remarks This is a emaciated looking middle-aged white male who is pale . No distress HEENT: Head normocephalic. Pupils reactive, Tongue dry Ears, no inflammation. Neck: Supple with no venous distension while laying flat. Trachea midline. Chest: Equal movements with Few wheezes. Heart: The heart sounds are irregular, S1-S2. No murmur. Abdomen: Reveals the liver to be 2 fingerbreadths below the costal margin. Bowel sounds are active. Extremities: Edema 1+ . Decreased pulses. Reflexes are 1+. The patient does move his extremities well . No lesions observed. Assessment and Plan Assessment and Plan IMPRESSION 1. Cirrhosis with ascites and pleural effusion. 2. Large left pneumothorax status post thoracentesis. 3. History of encephalopathy. Plan : 1. For CXR in am 2. Cancel Pleur X catheter / D/W Dr Cabral. 3. Duoneb nebs tid prn. 4. IS at bedside qid. 5. Up with help 6. PT Evaluation. 7. To rehab anytime Justina Johnston MD Oct 07, 2016 19:56
[2016-10-07] MEDS: DOCUSATE SODIUM 50 MG/SENNA 8.6 MG TAB PO SCH (20:03)
[2016-10-08] VITALS: BP 124/70; PULSE 73; RESP 16; TEMP 96.7; O2SAT 98
[2016-10-08] MEDS: LACTULOSE SYRUP 20 GM/30 ML CUP PO SCH ×2 (04:33→16:00)
[2016-10-08] MEDS: INSULIN ASPART SUPPLEMENTAL SCALE SQ SCH ×4 (05:53→21:08)
[2016-10-08] MEDS: GENTAMICIN SULFATE (DIALYSIS USE ONLY) 20 MG/2 ML VIAL IV PRN (08:04)
[2016-10-08] MEDS: SODIUM CHLOR 0.9% 1000 ML INJ 1,000 ML IV PRN (08:04)
[2016-10-08] MEDS: ALBUMIN HUMAN 25% 25 GM/100 ML BAGP IV PRN (08:04)
[2016-10-08] MEDS: HEPARIN SODIUM - IV 10,000 UNITS/10 ML VIAL PRN (08:05)
[2016-10-08] MEDS: SODIUM CHLORIDE 0.9% FLUSH 5 ML FLUSH IVF PRN ×2 (08:05→21:09)
[2016-10-08] MEDS: EPOETIN ALFA 10,000 UNITS/ML VIAL IV PRN (08:05)
[2016-10-08] MEDS: REMOVE OLD NICODERM (NICOTINE) PATCH TD SCH (09:00)
--- NOTE | 2016-10-08 09:58 | HHI.PR ---
Subjective Remarks Follow up for pneumothorax. He is somewhat sleepy this morning. No acute concerns. Denies any CP, SOB, fever, chills. Objective Vitals Vital Signs Date Time Temp Pulse Resp B/P Pulse Ox O2 Delivery O2 Flow Rate FiO2 10/08/16 00:00 96.7 73 16 124/70 98 10/07/16 20:00 98.6 85 18 119/68 95 10/07/16 15:19 96.6 70 13 134/72 96 10/07/16 11:30 96.1 70 10 138/73 99 I/O 10/07/16 10/07/16 10/07/16 10/08/16 10/08/16 10/08/16 07:00 15:00 23:00 07:00 15:00 23:00 Intake Total 0 ml 480 ml 480 ml Output Total 400 ml 1000 ml Balance 0 ml 80 ml 480 ml -1000 ml Intake Oral 0 ml 480 ml 480 ml Output Urine Total 400 ml Hemodialysis 1000 ml # Voids 0 0 # Bowel Movements 0 0 Result Diagram: 10/05/16 0526 10/06/16 0507 Imaging Last Impressions Chest X-Ray 10/06/16 0000 Signed Impressions: Service Date/Time: September 15:47 - CONCLUSION: 1. Status post removal of left basilar chest tube. A tiny probable left basilar pneumothorax is noted. 2. Stable bilateral pleural effusions. 3. Stable right perihilar consolidation. Beau Recinos MD Chest Tube Insertion 09/27/16 1452 Signed Impressions: Service Date/Time: Tuesday, September 27, 2016 15:20 - CONCLUSION: Uncomplicated chest tube placement as above. Pete Lugo MD Chest CT 09/27/16 0000 Signed Impressions: Service Date/Time: Tuesday, September 27, 2016 15:20 - CONCLUSION: 1. Large left hydropneumothorax. A left-sided chest tube will be placed. 2. Scattered parenchymal infiltrates throughout the right lung with a very small right effusion. Pete Lugo MD Objective Remarks GENERAL: Alert, NAD. SKIN: Warm and dry. HEAD: Normocephalic. EYES: No scleral icterus. No injection or drainage. NECK: Supple, trachea midline. No JVD or lymphadenopathy. CARDIOVASCULAR: Regular rate and rhythm without murmurs, gallops, or rubs. Chest tube insertion site on the left covered with dressing. RESPIRATORY: Breath sounds equal bilaterally. No accessory muscle use. GASTROINTESTINAL: Abdomen soft, non-tender, nondistended. MUSCULOSKELETAL: No cyanosis, or edema. BACK: Nontender without obvious deformity. No CVA tenderness. Procedures 09/27/16-Left chest tube placement A/P Problem List: (1) UTI (urinary tract infection) ICD Code: N39.0 Status: Acute (2) ESRD (end stage renal disease) on dialysis ICD Code: N18.6 Status: Chronic (3) Hx of acute pancreatitis ICD Code: Z87.19 Status: Acute (4) Ascites due to alcoholic cirrhosis ICD Code: K70.31 Status: Acute (5) Pneumothorax ICD Code: J93.9 Status: Acute Assessment and Plan 56-year-old male, with PMH of diabetes, tobacco and alcohol abuse. Had an episode of syncope in late November 2015, evaluated at [facility], found to have necrotizing pancreatitis with liver failure that was secondary to alcohol-induced cirrhosis; hospitalization complicated by acute tubular necrosis, now hemodialysis dependent. Also had tracheostomy placed after a long ventilator support requirement. He has ongoing liver failure with ascites, metabolic encephalopathy and multiple procedures including multiple paracentesis for ascites, thoracentesis, IVC filter placement for DVT/PE and recent placement of an AV fistula of right arm for ESRD and ongoing hemodialysis. He was transferred from [facility] to the hospital on 09/26/16 for pneumothorax after thoracentesis for pleural effusion. Bilateral pleural effusions, left pneumothorax: s/p 2.4 L of thoracenteses 09/23, CXR reviewed, showed patchy bilateral consolidation and a large pneumothorax on the left, worsening. No leukocytosis, previous fluid analysis was transudative. No antibiotics. Continue chest tube drainage. Repeat CXR without pneumothorax. Still on suction. Further management per pulmonary, will discontinue chest tube once output has significantly decreased, improving. Pulmonary considering pleur x catheter placement. Repeat chest x-ray 10/05 with improving aeration. - Pleurox catheter placement planned for 10/07/2016 by IR - however, it was not due to low amount of fluid. - If fluid accumulates, patient will need to come back to IR as outpatient. - Patient is waiting for hospital bed/mattress to be delivered at his house on 10/10/2016. - Likely discharge home on 10/10/2016. - Discussed with manager graphic on 10/08/2016. Once bed/mattress delivered, patient can be discharged home - hopefully on 10/10/2016. UTI: UA reviewed, positive leukocyte esterase, urine culture grew albicans, continue Diflucan renally dosed until 10/08/16. Repeat urine culture 10/01 with no growth. IDDM: previously managed at home with Lantus insulin and prandial insulin SS. However had episodes of hypoglycemia, SSI for now. No long-acting insulin. HgbA1c 5.6 09/15. ESRD: on hemodialysis T--, nephrology on board. Recent C Diff: positive test from [facility] 08/21/16 and was started on Vancomycin PO QID and completed 09/03/16. Continue Lactinex. Had loose stools again however repeat C.difficile 09/30 negative. 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 Unable to anticoagulate due to liver cirrhosis. Orthostatic hypotension: TEDs. Patient previously on Norvasc, metoprolol and lisinopril/quinapril but were stopped. Sacral wound-continue wound care. Chronic Pancreatitis - on Creon HTN -patient's BP actually well controlled. All antihypertensives were previously stopped. Liver cirrhosis, ascites, history of hepatic encephalopathy: continue with dialysis, ammonia wnl. US 09/13/2016 showed loculated fluid collections unable to perform paracentesis. Continued lactulose however patient continually refuses. Improving confusion which could be multifactorial from medication, hypoglycemia and end-stage renal disease. Limit narcotic use. History of respiratory failure, tracheostomy: monitor respiratory status, Neb treatments prn. Chronic pain: currently tolerating pain management Fall secondary to deconditioning: Fall precautions. Wound care with regards to abrasion and skin tear. Continue physical therapy. Patient nonambulatory, wheelchair bound at baseline. Full code. [place]. Pauline Barrera DO Oct 08, 2016 9:58 am
[2016-10-08] MEDS: VITAMIN B CMPLX/VITC/FOLIC AC CAP PO SCH (10:18)
[2016-10-08] MEDS: METOCLOPRAMIDE HCL 10 MG TAB PO SCH ×3 (10:18→17:00)
[2016-10-08] MEDS: NICOTINE 14 MG/24 HR PATCH TD SCH (10:19)
[2016-10-08] MEDS: LIPASE/PROTEASE/AMYLASE (6,000/19,000/30,000) CAP PO SCH ×3 (10:19→18:07)
[2016-10-08] MEDS: LACTOBACILLUS ACIDOPHILUS TAB PO SCH ×3 (10:19→18:07)
[2016-10-08] MEDS: ESCITALOPRAM OXALATE 10 MG TAB PO SCH (10:19)
[2016-10-08] MEDS: PANTOPRAZOLE SOD 20 MG DELAYED RELEASE TAB PO SCH (10:20)
[2016-10-08] MEDS: BACITRACIN TOP OINT 15 GM TUBE TOP SCH ×2 (10:22→21:09)
[2016-10-08 12:00] VITALS: BP 145/70; PULSE 71; RESP 17; TEMP 96.1; O2SAT 97
[2016-10-08] MEDS: FLUCONAZOLE 100 MG TAB PO SCH (14:51)
--- NOTE | 2016-10-08 16:12 | HHI.NPPN ---
Subjective General Problems: Anemia, Edema, Hypertension Renal Failure: Chronic, End Stage Renal Disease Review of Systems General Constitutional: Fatigue Respiratory Lungs: SOB Respiratory Remarks improved Objective Data Data 10/07/16 10/08/16 19:00 07:00 Intake Total 960 ml Output Total 400 ml Balance 560 ml Intake Oral 960 ml Output Urine Total 400 ml # Voids 0 # Bowel Movements 0 Vital Signs Date Time Temp Pulse Resp B/P Pulse Ox O2 Delivery O2 Flow Rate FiO2 10/08/16 12:00 96.1 71 17 145/70 97 10/08/16 00:00 96.7 73 16 124/70 98 10/07/16 20:00 98.6 85 18 119/68 95 -: 10/05/16 0526 10/06/16 0507 Tubes & Lines Comment AVF right upper arm Physical Exam General Appearance: No Acute Distress, Comfortable, Sleeping, Malnourished Eyes Eye Exam: Pupils Equal Throat Throat Exam: Oral Mucosa [place] & Moist Neck Neck Exam: Neck Supple, Trachea Midline Pulmonary Resp Exam: No Distress, Rhonchi, Decreased Bases, Diminished Breath Sounds Cardiology CV Exam: Regular, Normal Sinus Rhythm Gastrointestinal/Abdomen GI Exam: Soft, Non-Tender, Bowel Sounds Present Musculoskeletal MS Exam: Joints Intact, Atrophy Integumentary Skin Exam: Clear, Warm, Dry, Intact Extremeties Extremities Exam: No Edema, Pedal Pulses Palpable Neurologic Neuro Exam: Alert, Awake, Oriented Psychiatric Psych Exam: Appropriate Responses Assessment/Plan Discussed Condition With: Patient Assessment Summary: Anemia of CKD, Malnutrition, Hypertension, End Stage Renal Disease Problem List: (1) ESRD (end stage renal disease) on dialysis Plan: Dialysis T--Mon, he had 1 liter UF yesterday k 3.4 borderline will follow continue current plan, orders reviewed continue Nephrocaps, he is not on phosphate binders( phos low-normal), recheck in am he has outpatient HD arrangements at [facility] per the (2) Pneumothorax Plan: Pleur X catheter to be replaced pulmonary following (3) Physical deconditioning Plan: may benefit from rehab also needs nutritional support (4) Anemia Plan: continue Epogen with dialysis. (5) Stage II pressure ulcer of buttock Plan: continue wound care pain control if needed (6) Hx of acute pancreatitis (7) Ascites due to alcoholic cirrhosis Plan patient was seen and examined. Radiology note reviewed, very small amount of pleural fluid found, no chest tube or catheter. Dialysis tomorrow. Iron Adrian MD Oct 08, 2016 16:11
[2016-10-08 20:01] VITALS: BP 121/60; PULSE 66; RESP 16; TEMP 98.2; O2SAT 94
[2016-10-08] MEDS: DOCUSATE SODIUM 50 MG/SENNA 8.6 MG TAB PO SCH (21:00)
[2016-10-08 21:07] VITALS: PULSE 74
[2016-10-09] VITALS (7 sets, daily range): BP systolic 125–160; BP diastolic 64–78; PULSE 68–76; RESP 16–17; TEMP 95.5–97.3; O2SAT 94–97
[2016-10-09] MEDS: LACTULOSE SYRUP 20 GM/30 ML CUP PO SCH ×3 (05:16→21:19)
[2016-10-09] MEDS: INSULIN ASPART SUPPLEMENTAL SCALE SQ SCH ×4 (07:00→21:17)
[2016-10-09] MEDS: NICOTINE 14 MG/24 HR PATCH TD SCH (08:26)
[2016-10-09] MEDS: LACTOBACILLUS ACIDOPHILUS TAB PO SCH ×3 (08:26→16:53)
[2016-10-09] MEDS: PANTOPRAZOLE SOD 20 MG DELAYED RELEASE TAB PO SCH (08:27)
[2016-10-09] MEDS: ESCITALOPRAM OXALATE 10 MG TAB PO SCH (08:27)
[2016-10-09] MEDS: METOCLOPRAMIDE HCL 10 MG TAB PO SCH ×3 (08:27→16:47)
[2016-10-09] MEDS: VITAMIN B CMPLX/VITC/FOLIC AC CAP PO SCH (08:27)
[2016-10-09] MEDS: REMOVE OLD NICODERM (NICOTINE) PATCH TD SCH (08:27)
[2016-10-09] MEDS: LIPASE/PROTEASE/AMYLASE (6,000/19,000/30,000) CAP PO SCH ×3 (08:27→16:53)
[2016-10-09] MEDS: BACITRACIN TOP OINT 15 GM TUBE TOP SCH ×2 (08:28→21:00)
--- NOTE | 2016-10-09 12:05 | HHI.PR ---
Subjective Remarks Patient seen in follow-up for pneumothorax and multiple comorbid conditions listed on the assessment and plan. Patient concerned about taking him home tomorrow. She is concerned about reaccumulation of fluid. Patient complained of a mild constant whole chest pressure. No SOB or diaphoresis. It started this morning and he could not give any further specifics. Objective Vitals Vital Signs Date Time Temp Pulse Resp B/P Pulse Ox O2 Delivery O2 Flow Rate FiO2 10/09/16 08:00 96.3 68 17 139/75 96 10/09/16 04:00 96.6 72 16 146/76 95 10/09/16 00:00 96.4 70 16 125/65 96 10/08/16 21:07 74 10/08/16 20:01 98.2 66 16 121/60 94 I/O 10/08/16 10/08/16 10/08/16 10/09/16 10/09/16 10/09/16 07:00 15:00 23:00 07:00 15:00 23:00 Intake Total 480 ml 480 ml 600 ml 240 ml Output Total 1100 ml 80 ml Balance 480 ml -620 ml 600 ml 240 ml -80 ml Intake Oral 480 ml 480 ml 600 ml 240 ml Output Urine Total 100 ml 80 ml Hemodialysis 1000 ml # Voids 1 0 # Bowel Movements 0 2 0 Result Diagram: 10/05/16 0526 10/06/16 0507 Objective Remarks GENERAL: Alert, NAD. NECK: Supple, trachea midline. No JVD or lymphadenopathy. CARDIOVASCULAR: Regular rate and rhythm without murmurs, gallops, or rubs. Chest tube site on the left covered with dressing. RESPIRATORY: Breath sounds equal bilaterally. No accessory muscle use. GASTROINTESTINAL: Abdomen soft, non-tender, nondistended. MUSCULOSKELETAL: No cyanosis, or edema. BACK: Nontender without obvious deformity. No CVA tenderness. Procedures 09/27/16-Left chest tube placement A/P Problem List: (1) UTI (urinary tract infection) ICD Code: N39.0 Status: Acute (2) ESRD (end stage renal disease) on dialysis ICD Code: N18.6 Status: Chronic (3) Hx of acute pancreatitis ICD Code: Z87.19 Status: Acute (4) Ascites due to alcoholic cirrhosis ICD Code: K70.31 Status: Acute (5) Pneumothorax ICD Code: J93.9 Status: Acute Assessment and Plan 56-year-old male, with PMH of diabetes, tobacco and alcohol abuse. Had an episode of syncope in late November 2015, evaluated at [facility], found to have necrotizing pancreatitis with liver failure that was secondary to alcohol-induced cirrhosis; hospitalization complicated by acute tubular necrosis, now hemodialysis dependent. Also had tracheostomy placed after a long ventilator support requirement. He has ongoing liver failure with ascites, metabolic encephalopathy and multiple procedures including multiple paracentesis for ascites, thoracentesis, IVC filter placement for DVT/PE and recent placement of an AV fistula of right arm for ESRD and ongoing hemodialysis. He was transferred from [facility] to the hospital on 09/26/16 for pneumothorax after thoracentesis for pleural effusion. Bilateral pleural effusions, left pneumothorax: s/p 2.4 L of thoracenteses 09/23, CXR reviewed, showed patchy bilateral consolidation and a large pneumothorax on the left, worsening. No leukocytosis, previous fluid analysis was transudative. No antibiotics. Continue chest tube drainage. Repeat CXR without pneumothorax. Still on suction. Further management per pulmonary, will discontinue chest tube once output has significantly decreased, improving. Pulmonary considering pleur x catheter placement. Repeat chest x-ray 10/05 with improving aeration. - Pleurox catheter placement planned for 10/07/2016 by IR - however, it was not due to low amount of fluid. - If fluid accumulates, patient will need to come back to IR as outpatient. - Patient is waiting for hospital bed/mattress to be delivered at his house on 10/10/2016. - Likely discharge home on 10/10/2016. - Discussed with integrated marketing manager on 10/08/2016. Once bed/mattress delivered, patient can be discharged home - hopefully on 10/10/2016. Chest pressure: Etiology unclear. Not consistent with ACS. Will obtain chest x- ray. cardiac enzyme and EKG. UTI: UA reviewed, positive leukocyte esterase, urine culture grew albicans, continue Diflucan renally dosed until 10/08/16. Repeat urine culture 10/01 with no growth. IDDM: previously managed at home with Lantus insulin and prandial insulin SS. However had episodes of hypoglycemia, SSI for now. No long-acting insulin. HgbA1c 5.6 09/15. ESRD: on hemodialysis T-, nephrology on board. Recent C Diff: positive test from [facility] 08/21/16 and was started on Vancomycin PO QID and completed 09/03/16. Continue Lactinex. Had loose stools again however repeat C.difficile 09/30 negative. 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 Unable to anticoagulate due to liver cirrhosis. Orthostatic hypotension: TEDs. Patient previously on Norvasc, metoprolol and lisinopril/quinapril but were stopped. Sacral wound-continue wound care. Chronic Pancreatitis - on Creon HTN -patient's BP actually well controlled. All antihypertensives were previously stopped. Liver cirrhosis, ascites, history of hepatic encephalopathy: continue with dialysis, ammonia wnl. US 09/13/2016 showed loculated fluid collections unable to perform paracentesis. Continued lactulose however patient continually refuses. Improving confusion which could be multifactorial from medication, hypoglycemia and end-stage renal disease. Limit narcotic use. History of respiratory failure, tracheostomy: monitor respiratory status, Neb treatments prn. Chronic pain: currently tolerating pain management Fall secondary to deconditioning: Fall precautions. Wound care with regards to abrasion and skin tear. Continue physical therapy. Patient nonambulatory, wheelchair bound at baseline. Full code. SCDs. Dulce Jordan MD Oct 09, 2016 12:05
--- NOTE | 2016-10-09 13:20 | RADRPT ---
EXAM DATE/TIME: 10/09/2016 12:59 [facility] COMPARISON: No previous studies available for comparison. INDICATIONS : Shortness of breath. MEDICAL HISTORY : Renal disease, end stage. Cirrhosis. SURGICAL HISTORY : Port Placement. ENCOUNTER: Subsequent ACUITY: 2 days PAIN SCORE: 0/10 LOCATION: Bilateral chest FINDINGS: A single view of the chest demonstrates there is again some fluid loculated in the major fissure on t he left. There is a density in the left lateral chest also likely loculated pleural effusion. There is blunting of both costophrenic angles. There is no visible pneumothorax. Multilumen left IJ jhonny ter is stable. The heart and mediastinum are unremarkable. CONCLUSION: Areas of pleural fluid. No pneumothorax. Gary Segura MD on October 09, 2016 at 13:13 Board Certified Radiologist. This report was verified electronically.
[2016-10-09 14:34] LABS: HEMATOCRIT 31.7 % (39.0-51.0); MEAN CELL VOLUME 68.4 FL (80.0-100.0); MEAN CORPUSCULAR HEMOGLOBIN 20.9 PG (27.0-34.0); MEAN CORPUSCULAR HGB CONC 30.6 % (32.0-36.0); PLATELET COUNT 315 TH/MM3 (150-450); RED BLOOD COUNT 4.63 MIL/MM3 (4.50-5.90); RED CELL DISTRIBUTION WIDTH 20.5 % (11.6-17.2); WHITE BLOOD COUNT 12.5 TH/MM3 (4.0-11.0)
[2016-10-09 14:41] LABS: HEMO FLAGS AUTO DIFF
[2016-10-09 14:48] LABS: ANION GAP 8 MEQ/L (5-15); BLOOD UREA NITROGEN 22 MG/DL (7-18); CHLORIDE 99 MEQ/L (98-107); GLOMERULAR FILTRATION RATE 22 ML/MIN (>89); POTASSIUM 3.4 MEQ/L (3.5-5.1); SODIUM (NA) 137 MEQ/L (136-145)
[2016-10-09 15:08] LABS: BANDS 1 % (0-6); EOSINOPHILS 1 % (0-4); NEUTROPHIL # MANUAL DIFF 8.4 TH/MM3 (1.8-7.7); POLYS (SEG NEUTROPHILS) 66 % (16-70); WBC DIFF SAMPLE 100
[2016-10-09 15:09] LABS: ACANTHOCYTES 1+ (NORMAL); KERATOCYTES 1+ (NORMAL); OVALOCYTES 1+ (NORMAL); PLATELET ESTIMATE SMEAR HIGH (NORMAL); PLATELET MORPHOLOGY ENLARGED (NORMAL); SCAN/DIFF FINAL DIFF MANUAL; TARGET CELLS 3+ (NORMAL)
[2016-10-09 15:33] LABS: CREATINE KINASE 40 U/L (39-308)
[2016-10-09] MEDS: FLUCONAZOLE 100 MG TAB PO SCH (16:46)
[2016-10-09] MEDS: DOCUSATE SODIUM 50 MG/SENNA 8.6 MG TAB PO SCH (21:00)
[2016-10-10] VITALS: BP 156/82; PULSE 75; RESP 16; TEMP 96.6; O2SAT 95
[2016-10-10 04:00] VITALS: BP 161/84; PULSE 72; RESP 16; TEMP 97; O2SAT 99
[2016-10-10 06:15] LABS: HEMATOCRIT 29.1 % (39.0-51.0); MEAN CELL VOLUME 67.8 FL (80.0-100.0); MEAN CORPUSCULAR HEMOGLOBIN 20.7 PG (27.0-34.0); MEAN CORPUSCULAR HGB CONC 30.6 % (32.0-36.0); PLATELET COUNT 314 TH/MM3 (150-450); RED CELL DISTRIBUTION WIDTH 20.6 % (11.6-17.2); WHITE BLOOD COUNT 10.4 TH/MM3 (4.0-11.0)
[2016-10-10 06:20] LABS: REVIEW FLAG FINAL
[2016-10-10 06:32] LABS: POTASSIUM 3.5 MEQ/L (3.5-5.1)
[2016-10-10] MEDS: INSULIN ASPART SUPPLEMENTAL SCALE SQ SCH ×3 (07:00→15:34)
[2016-10-10 08:55] VITALS: BP 149/75; PULSE 71; RESP 16; TEMP 95.5; O2SAT 94
[2016-10-10] MEDS: REMOVE OLD NICODERM (NICOTINE) PATCH TD SCH (09:00)
[2016-10-10] MEDS: NICOTINE 14 MG/24 HR PATCH TD SCH (10:19)
[2016-10-10] MEDS: LIPASE/PROTEASE/AMYLASE (6,000/19,000/30,000) CAP PO SCH ×3 (10:20→17:20)
[2016-10-10] MEDS: ESCITALOPRAM OXALATE 10 MG TAB PO SCH (10:20)
[2016-10-10] MEDS: VITAMIN B CMPLX/VITC/FOLIC AC CAP PO SCH (10:20)
[2016-10-10] MEDS: LACTOBACILLUS ACIDOPHILUS TAB PO SCH ×3 (10:20→17:20)
[2016-10-10] MEDS: PANTOPRAZOLE SOD 20 MG DELAYED RELEASE TAB PO SCH (10:20)
[2016-10-10] MEDS: METOCLOPRAMIDE HCL 10 MG TAB PO SCH ×3 (10:26→15:32)
[2016-10-10] MEDS: BACITRACIN TOP OINT 15 GM TUBE TOP SCH (10:26)
[2016-10-10] MEDS ORDERED: WHEEMIS3 (10:54)
[2016-10-10 12:00] VITALS: BP 149/79; PULSE 73; RESP 15; TEMP 95.6; O2SAT 95
[2016-10-10] MEDS ORDERED: OXYC-392 PO (13:31)
--- NOTE | 2016-10-10 13:32 | HHI.DS ---
Discharge Summary Admission Date Sep 26, 2016 at 10:30 Discharge Date: Oct 10, 2016 Admitting Diagnosis (1) UTI (urinary tract infection) ICD Code: N39.0 (2) ESRD (end stage renal disease) on dialysis ICD Code: N18.6 (3) Hx of acute pancreatitis ICD Code: Z87.19 (4) Ascites due to alcoholic cirrhosis ICD Code: K70.31 (5) Pneumothorax ICD Code: J93.9 Procedures 09/27/16-Left chest tube placement Brief History - From Admission Mr. Emanuel Alvarado is a 56-year-old male, with past medical history of diabetes mellitus, tobacco and alcohol abuse. He had an episode of syncope in late November 2015 evaluated at [facility] and found to have necrotizing pancreatitis with liver failure that was secondary to alcohol- induced cirrhosis. That hospitalization was complicated by acute tubular necrosis and patient has been on hemodialysis since then. He also had metabolic encephalopathy, acute respiratory failure for which required tracheostomy and ventilator support with decannulation prior to return to [facility]. He was evaluated for possible liver transplant in [place] but was found to be a poor candidate and was return to [facility] on 06/27/2016. Mr. Alvarado has had ongoing liver failure with ascites, metabolic encephalopathy and multiple procedures including multiple paracentesis for ascites, thoracentesis, IVC filter placement for DVT/PE and recent placement of an AV fistula of right arm for ESRD and ongoing hemodialysis. He was then admitted to [facility] for comprehensive therapy. While at [facility], he continued to develop pleural effusion, patient went for thoracenteses 09/23/16. 4 L of fluid was removed, it was transudative. He then subsequently had a pneumothorax after the procedure. Respiratory status has been stable, patient has not been complaining of any shortness of breath however chest x-ray is being done every day with worsening pneumothorax hence patient was transferred to the hospital. Today, patient still denies any shortness of breath but he has also denied shortness of breath despite massive pleural effusion. He also denies any pleuritic chest pain. No fever or chills. Patient has been sleepy and not the best historian. CBC/BMP: 10/10/16 0546 10/10/16 0546 Significant Findings Laboratory Tests Test 10/09/16 10/10/16 14:03 05:46 White Blood Count 12.5 TH/MM3 (4.0-11.0) Hemoglobin 9.7 GM/DL 8.9 GM/DL (13.0-17.0) (13.0-17.0) Hematocrit 31.7 % 29.1 % (39.0-51.0) (39.0-51.0) Mean Corpuscular Volume 68.4 FL 67.8 FL (80.0-100.0) (80.0-100.0) Mean Corpuscular Hemoglobin 20.9 PG 20.7 PG (27.0-34.0) (27.0-34.0) Mean Corpuscular Hemoglobin 30.6 % 30.6 % Concent (32.0-36.0) (32.0-36.0) Red Cell Distribution Width 20.5 % 20.6 % (11.6-17.2) (11.6-17.2) Neutrophils # (Manual) 8.4 TH/MM3 (1.8-7.7) Platelet Estimate HIGH (NORMAL) Platelet Morphology Comment ENLARGED (NORMAL) Target Cells 3+ (NORMAL) Ovalocytes 1+ (NORMAL) Acanthocytes 1+ (NORMAL) Keratocytes 1+ (NORMAL) Potassium Level 3.4 MEQ/L (3.5-5.1) Blood Urea Nitrogen 22 MG/DL (7-18) 30 MG/DL (7-18) Creatinine 2.97 MG/DL 3.38 MG/DL (0.60-1.30) (0.60-1.30) Estimat Glomerular Filtration 22 ML/MIN (>89) 19 ML/MIN (>89) Rate Random Glucose 111 MG/DL 191 MG/DL (74-106) (74-106) Calcium Level 7.9 MG/DL 7.8 MG/DL (8.5-10.1) (8.5-10.1) Troponin I LESS THAN 0.02 NG/ML (0.02-0.05) Red Blood Count 4.30 MIL/MM3 (4.50-5.90) Imaging Last Impressions Chest X-Ray 10/09/16 0000 Signed Impressions: Service Date/Time: Sunday, October 09, 2016 12:59 - CONCLUSION: Areas of pleural fluid. No pneumothorax. Gary Segura MD Chest Tube Insertion 09/27/16 1452 Signed Impressions: Service Date/Time: Tuesday, September 27, 2016 15:20 - CONCLUSION: Uncomplicated chest tube placement as above. Pete Lugo MD Chest CT 09/27/16 0000 Signed Impressions: Service Date/Time: Tuesday, September 27, 2016 15:20 - CONCLUSION: 1. Large left hydropneumothorax. A left-sided chest tube will be placed. 2. Scattered parenchymal infiltrates throughout the right lung with a very small right effusion. Pete Lugo MD PE at Discharge GENERAL: Alert, NAD. NECK: Supple, trachea midline. No JVD or lymphadenopathy. CARDIOVASCULAR: Regular rate and rhythm without murmurs, gallops, or rubs. Chest tube site on the left covered with dressing. RESPIRATORY: Breath sounds equal bilaterally. No accessory muscle use. GASTROINTESTINAL: Abdomen soft, non-tender, nondistended. MUSCULOSKELETAL: No cyanosis, or edema. BACK: Nontender without obvious deformity. No CVA tenderness. Pt update on day of discharge Patient is feeling better. All arrangements have been made for discharge home. His feels comfortable taking him home. Hospital Course 56-year-old male, with PMH of diabetes, tobacco and alcohol abuse. Had an episode of syncope in late November 2015, evaluated at [facility], found to have necrotizing pancreatitis with liver failure that was secondary to alcohol-induced cirrhosis; hospitalization complicated by acute tubular necrosis, now hemodialysis dependent. Also had tracheostomy placed after a long ventilator support requirement. He has ongoing liver failure with ascites, metabolic encephalopathy and multiple procedures including multiple paracentesis for ascites, thoracentesis, IVC filter placement for DVT/PE and recent placement of an AV fistula of right arm for ESRD and ongoing hemodialysis. He was transferred from [facility] to the hospital on 09/26/16 for pneumothorax after thoracentesis for pleural effusion. Evaluation and treatment course detailed below: Bilateral pleural effusions, left pneumothorax: s/p 2.4 L of thoracenteses 09/23, CXR reviewed, showed patchy bilateral consolidation and a large pneumothorax on the left, worsening. No leukocytosis, previous fluid analysis was transudative. No antibiotics. Continue chest tube drainage. Repeat CXR without pneumothorax. Still on suction. Further management per pulmonary, will discontinue chest tube once output has significantly decreased, improving. Pulmonary considering pleur x catheter placement. Repeat chest x-ray 10/05 with improving aeration. - Pleurox catheter placement planned for 10/07/2016 by IR - however, it was not done due to low amount of fluid. - If fluid accumulates, patient will need to come back to IR as outpatient UTI: UA reviewed, positive leukocyte esterase, urine culture grew albicans, patient treated with Diflucan renally dosed until 10/08/16. Repeat urine culture 10/01 with no growth. IDDM: previously managed at home with Lantus insulin and prandial insulin SS. However had episodes of hypoglycemia, SSI during hospitalization. No long- acting insulin. HgbA1c 5.6 09/15. ESRD: on hemodialysis T-, nephrology followed the patient. Recent C Diff: positive test from [facility] 08/21/16 and was started on Vancomycin PO QID and completed 09/03/16. Continue Lactinex. Had loose stools again however repeat C.difficile 09/30 negative. 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 Unable to anticoagulate due to liver cirrhosis. Orthostatic hypotension: Patient previously on Norvasc, metoprolol and lisinopril/quinapril but were stopped. Sacral wound-continue wound care. Chronic Pancreatitis - on Creon HTN -patient's BP actually well controlled. All antihypertensives were previously stopped. Liver cirrhosis, ascites, history of hepatic encephalopathy: continue with dialysis, ammonia wnl. US 09/13/2016 showed loculated fluid collections unable to perform paracentesis. Continued lactulose however patient continually refuses. Improving confusion which could be multifactorial from medication, hypoglycemia and end-stage renal disease. Limit narcotic use. History of respiratory failure, tracheostomy: monitor respiratory status, Neb treatments prn. Chronic pain: Patient is tolerating pain management Pt Condition on Discharge: Good Discharge Disposition: Disch w/ Home Health Serv Discharge Time: > 30 minutes Discharge Instructions DIET: Follow Instructions for: As Tolerated, No Restrictions Activities you can perform: Regular-No Restrictions, See Additionl Instruction Other Activity Instructions: Follow PT instructions. Use assistance Follow up Referrals: Nephrology - Next Day PCP Follow-up - 1 Week New Medications: Wheelchair (Wheelchair) 1 Mis Mis 1 EA .ROUTE DIRECTED #1 Ref 0 EA Oxycodone (Oxycodone) 5 Mg Tab 2.5 MG PO Q4H PRN PAIN SCALE 3 TO 10 #20 TAB Continued Medications: Amlodipine (Norvasc) 2.5 Mg Tab 2.5 MG PO DAILY Blood Pressure Management #30 Ref 0 TAB Bacitracin Topical (Bacitracin Topical) 500 Unit/Gm Oint 1 APPLIC TOP Q12HR skin #0 TUBE Diphenhydramine (Diphenhydramine) 25 Mg Cap 25 MG PO HS PRN INSOMNIA Ref 0 CAP Escitalopram (Escitalopram) 10 Mg Tab 10 MG PO DAILY Depression Control #0 TAB Insulin Lispro (Human) Inj (Humalog Inj) 1,000 Unit/10 Ml Vial 1-9 UNITS SQ ACHS Max dose at bedtime:( )units; sugars< 70,(0)units; sugars 150 -199,(1)unit; sugars 200-249,(3)units; sugars 250-299,(5)units; sugars 300-349,( 7)units; sugars more than 349,(9)units. Blood Sugar Management #1 Ref 0 VIAL Lactobacillus Acidophilus (Acidophilus/l-Sporogenes) 1 Tab Tab 1 TAB PO TID Diarrhea #0 TAB Lactulose Liq (Lactulose Liq) 10 Gm/15 Ml Soln 30 ML PO BIDAC Ref 0 ML Pancrelipase (Pancreaze) 4,200-10,000-17,500 Units Cap 2 CAP PO TIDAC Digestive Aid #90 Ref 0 CAP Pantoprazole (Protonix) 20 Mg Tab 20 MG PO DAILY Reflux #0 TAB Discontinued Medications: Alprazolam (Alprazolam) 0.25 Mg Tab 0.25 MG PO TID PRN ANXIETY Ref 0 TAB Epoetin Inj (Epogen Inj) 10,000 Unit/Ml Inj 89836 UNITS IV UNSCH PRN WITH DIALYSIS #0 INJECTION Fluconazole (Diflucan) 100 Mg Tab 100 MG PO TuThSa antifungal #0 TAB Fluconazole (Diflucan) 100 Mg Tab 50 MG PO SuMoWeFr antifungal #0 TAB Furosemide (Furosemide) 40 Mg Tab 40 MG PO BID #60 Ref 0 TAB Gelfoam Sponge (Gelfoam Sponge) 12-7 Mm Pad 1 FOAM TOP UNSCH PRN SEE LABEL COMMENTS #0 EA Metoclopramide (Metoclopramide) 10 Mg Tab 5 MG PO TIDAC Bowel Management #0 TAB Metoprolol Succinate ER 24 HR (Toprol XL) 25 Mg Tab 25 MG PO DAILY #30 Ref 0 TAB Midodrine (Midodrine) 5 Mg Tab 10 MG PO WITH DIALYSIS Blood Pressure Management #0 TAB Nicotine Patch (Nicotine Patch) 14 Mg/24 Hr Patch 14 MG T-DERMAL DAILY Smoking Cessation #30 Ref 0 PATCH Nicotine Patch (Nicotine Patch) 7 Mg/24 Hr Patch 1 PATCH TD DAILY tobacco cessation #0 PATCH Ondansetron Odt (Ondansetron Odt) 4 Mg Tab 4 MG SL Q6HR PRN Nausea/Vomiting #0 TAB Oxycodone-Acetaminophen (Oxycodone-Acetaminophen) 5-325 mg Tab 1 TAB PO Q4H PRN PAIN Ref 0 TAB Dulce Jordan MD Oct 10, 2016 13:32
[2016-10-10] MEDS: FLUCONAZOLE 100 MG TAB PO SCH (15:13)
[2016-10-10] MEDS: LACTULOSE SYRUP 20 GM/30 ML CUP PO SCH (15:31)
[2016-10-10 16:10] VITALS: BP 149/77; PULSE 43; RESP 16; TEMP 95.6; O2SAT 95
--- NOTE | 2016-10-10 16:38 | HHI.NPPN ---
Subjective General Problems: Anemia, Edema, Hypertension Renal Failure: Chronic, End Stage Renal Disease Additional Remarks Patient is alert, no SOB, no nausea, eating better. Review of Systems General Constitutional: Fatigue Respiratory Lungs: SOB Respiratory Remarks improved Objective Data Data 10/09/16 10/10/16 19:00 07:00 Intake Total 480 ml 480 ml Output Total 80 ml 100 ml Balance 400 ml 380 ml Intake Oral 480 ml 480 ml Output Urine Total 80 ml 100 ml # Voids 0 0 # Bowel Movements 2 0 Vital Signs Date Time Temp Pulse Resp B/P Pulse Ox O2 Delivery O2 Flow Rate FiO2 10/10/16 12:00 95.6 73 15 149/79 95 10/10/16 08:55 95.5 71 16 149/75 94 10/10/16 04:00 97.0 72 16 161/84 99 10/10/16 00:00 96.6 75 16 156/82 95 10/09/16 21:11 75 10/09/16 20:00 97.3 76 16 160/64 97 -: 10/10/16 0546 10/10/16 0546 Tubes & Lines Comment AVF right upper arm Physical Exam General Appearance: No Acute Distress, Comfortable, Malnourished Eyes Eye Exam: Pupils Equal Throat Throat Exam: Oral Mucosa [place] & Moist Neck Neck Exam: Neck Supple, Trachea Midline Pulmonary Resp Exam: No Distress, Rhonchi, Decreased Bases, Diminished Breath Sounds Cardiology CV Exam: Regular, Normal Sinus Rhythm Gastrointestinal/Abdomen GI Exam: Soft, Non-Tender, Bowel Sounds Present Musculoskeletal MS Exam: Joints Intact, Atrophy Integumentary Skin Exam: Clear, Warm, Dry, Intact Extremeties Extremities Exam: No Edema Neurologic Neuro Exam: Alert, Awake, Oriented Psychiatric Psych Exam: Appropriate Responses Assessment/Plan Discussed Condition With: Patient Assessment Summary: Anemia of CKD, Malnutrition, Hypertension, End Stage Renal Disease Problem List: (1) ESRD (end stage renal disease) on dialysis Plan: Dialysis T-Th-Mon, continue current plan, orders reviewed continue Nephrocaps, he is not on phosphate binders( phos low-normal), recheck in am he has outpatient HD arrangements at [facility] in [place] from tomorrow. Possible D/C today. (2) Pneumothorax Plan: Pleur X catheter to be replaced pulmonary following (3) Physical deconditioning Plan: may benefit from rehab also needs nutritional support (4) Anemia Plan: continue Epogen with dialysis. (5) Stage II pressure ulcer of buttock Plan: continue wound care pain control if needed (6) Hx of acute pancreatitis (7) Ascites due to alcoholic cirrhosis Arianna Reynolds MD Oct 10, 2016 16:38
--- NOTE | 2016-10-10 19:42 | EKG ---
Date Performed: 10/09/2016 Time Performed: 12:43:09 PTAGE: 56 years EKG: Sinus rhythm WITH SHORT MA INTERVAL BORDERLINE ECG NO PREVIOUS TRACING DOCTOR: Rohan Newell Interpretating Date/Time 10/10/2016 19:36:31
== END 2016-10-10 18:33 | disposition home health service (06) | DRG 199 ==
LOC: N06A 10:30
PROVIDERS: ADMIT Family Medicine; ATTEND Family Medicine
PROC: 0W9B30Z Drainage of Left Pleural Cavity with Drainage Device, Percutaneous Approach (ICD-10-PCS; principal; 2016-09-27)
PROC: 5A1D60Z (ICD-10-PCS; 2016-09-27)
DX: J95.811 Postprocedural pneumothorax (principal); N18.6 End stage renal disease; E41 Nutritional marasmus; J90 Pleural effusion, not elsewhere classified; L89.302 Pressure ulcer of unspecified buttock, stage 2; I12.0 Hypertensive chronic kidney disease with stage 5 chronic kidney disease or end stage renal disease; K72.90 Hepatic failure, unspecified without coma; E11.22 Type 2 diabetes mellitus with diabetic chronic kidney disease; D63.1 Anemia in chronic kidney disease; S51.012A Laceration without foreign body of left elbow, initial encounter; J94.8 Other specified pleural conditions; N39.0 Urinary tract infection, site not specified; K86.1 Other chronic pancreatitis; K70.31 Alcoholic cirrhosis of liver with ascites; I95.1 Orthostatic hypotension; E11.649 Type 2 diabetes mellitus with hypoglycemia without coma; E11.65 Type 2 diabetes mellitus with hyperglycemia; F10.20 Alcohol dependence, uncomplicated; S90.511A Abrasion, right ankle, initial encounter; S40.212A Abrasion of left shoulder, initial encounter; Z79.01 Long term (current) use of anticoagulants; Z79.4 Long term (current) use of insulin; Z86.711 Personal history of pulmonary embolism; Z86.718 Personal history of other venous thrombosis and embolism; Z87.891 Personal history of nicotine dependence; Z99.2 Dependence on renal dialysis; Z99.3 Dependence on wheelchair
CPT/HCPCS: 32557; 71010; 71250; 80048; 80069; 81001; 82140; 82550; 82948; 84484; 85007; 85025; 85027; 85610; 85730; 87086; 87493; 90935; 93005; 96374; 96375; 99152; C1729; J1580; J1644; J1815; J2250; J2405; J3010; J7030; P9047; Q4081